=== PATIENT | female | born 1945 | race Caucasian/White ===

== ENCOUNTER 2018-03-31 20:55 | Inpatient (IN) | payer MEDICARE ==
[2018-03-31] MEDS ORDERED: VANCOMYCIN HCL INJ 1000 MG VIAL IV ONE (21:36)
[2018-03-31] MEDS ORDERED: AZITHROMYCIN INJ 500 MG VIAL IV ONE (21:36)
[2018-03-31] MEDS ORDERED: PIPERACILLIN/TAZOBACTAM 4.5 GM VIAL IV ONE (21:37)
[2018-03-31 21:40] LABS: VENOUS BLOOD BASE EXCESS 15.4 mmol/L; VENOUS BLOOD HCO3 46.1 mmol/L (20-32); VENOUS BLOOD PH 7.31 (7.30-7.42)
--- NOTE | 2018-03-31 21:41 | RADIOLOGY REPORT (SQ) ---
Clinical History : SOB , Exam : Portable AP view of the chest 03/31/2018 12:00 AM [employer] Comparisons : CT chest without contrast January 07, 2012 Findings : Moderate emphysematous changes are noted throughout the lungs bilaterally. The lungs are otherwise clear without focal consolidation or pleural effusion. The heart is normal in size. The mediastinal contours are normal in appearance. The thoracic spine is age appropriate. The shoulders are unremarkable. Limited evaluation of the upper abdomen demonstrates no gross abnormalities. Impression: 1. No acute cardiopulmonary disease. 2. Stable moderate emphysema.
[2018-03-31 21:42] LABS: ABSOLUTE BASOPHILS # (AUTO) 0.1 10^3/uL (0.0-0.2); ABSOLUTE EOSINOPHILS # (AUTO) 0.9 10^3/uL (0.0-0.6); ABSOLUTE MONOCYTES (AUTO) 1.5 10^3/uL (0.1-1.4); ABSOLUTE NEUT (AUTO) 8.9 10^3/uL (1.7-8.2); BASOPHILS % (AUTO) 0.6 % (0-2); EOSINOPHILS % (AUTO) 6.1 % (0-6); HEMOGLOBIN 12.3 g/dL (12.0-15.5); LYMPHOCYTES % (AUTO) 20.7 % (13-45); MEAN CORPUSCULAR HEMOGLOBIN 30.9 pg (27.0-33.4); MEAN CORPUSCULAR HGB CONC 33.2 g/dL (32.0-36.0); MEAN CORPUSCULAR VOLUME 93 fl (80-97); MONOCYTES % (AUTO) 10.4 % (3-13); PLATELET COUNT 203 10^3/uL (150-450); RED BLOOD COUNT 3.97 10^6/uL (3.72-5.28); RED CELL DISTRIBUTION WIDTH 14.4 % (11.5-14.0); SEGMENTED NEUTROPHILS % (AUTO) 62.2 % (42-78); TOTAL CELLS COUNTED % (AUTO) 100 %; VENOUS BLOOD PCO2 93.5 mmHg (35-63); WHITE BLOOD COUNT 14.4 10^3/uL (4.0-10.5)
--- NOTE | 2018-03-31 21:47 | ER Document Report ---
ED Respiratory Problem - General Chief Complaint: Breathing Difficulty Stated Complaint: DIFFICULTY BREATHING Time Seen by Provider: 03/31/18 21:02 Notes: Patient is a 72-year-old female presenting to the emergency department with respiratory distress. Patient's daughter is at bedside who states the patient was recently discharged from a [place] [facility] on 03/22. States she was discharged after being treated for "COPD and pneumonia toxicity". Daughter states patient was intubated for a total of 24 hours and then was placed on BiPAP. Mother states patient has been home since 03/22 and has been doing well. Daughter states yesterday she noted that the patient was "foggy headed" but she noted no change in the patient's respiratory status. Daughter stated the patient did have a T-max of 101.2 yesterday treated with Tylenol. The patient had 2 doctors visits today 1 with the primary care provider who the daughter states increased her diabetic medications. Daughter states when they arrived home after the second doctor's appointment they noticed that the patient was having increased respiratory distress. 911 was then alerted. Per EMS pt had received a total of 9ml Duoneb, 125 mg Solumedrol and 2mg Magnesium. PMH: COPD, CHF Meds: Lasix, Glipizide, potassium, sodium, magnesium. Allergies: none TRAVEL OUTSIDE OF THE [place] IN LAST 30 DAYS: No - Related Data Allergies/Adverse Reactions: No Known Allergies Allergy (Verified 11/11/15 10:42) Past Medical History - General Information source: Relative - Social History Smoking Status: Former Smoker Lives with: Family Family History: Reviewed & Not Pertinent - Past Medical History Cardiac Medical History: Denies: Hx Coronary Artery Disease, Hx Heart Attack, Hx Hypertension Pulmonary Medical History: Reports: Hx Asthma, Hx Bronchitis, Hx COPD, Hx Pneumonia Neurological Medical History: Denies: Hx Cerebrovascular Accident, Hx Seizures Renal/ Medical History: Denies: Hx Peritoneal Dialysis Musculoskeletal Medical History: Reports Hx Arthritis Past Surgical History: Reports: Hx Hysterectomy - Immunizations Hx Diphtheria, Pertussis, Tetanus Vaccination: Yes Hx Pneumococcal Vaccination: 02/26/14 Review of Systems - Review of Systems Constitutional: See HPI EENT: No symptoms reported Cardiovascular: See HPI Respiratory: See HPI Gastrointestinal: No symptoms reported Genitourinary: No symptoms reported Female Genitourinary: No symptoms reported Musculoskeletal: No symptoms reported Skin: No symptoms reported Hematologic/Lymphatic: No symptoms reported Neurological/Psychological: See HPI Physical Exam - Vital signs Vitals: Pulse Ox 95 03/31/18 20:59 - Notes Notes: GENERAL: Alert, interacts well, Obvious respiratory distress noted sitting tripod, tachypneic HEAD: Normocephalic, atraumatic. EYES: Pupils equal, round, and reactive to light. Extraocular movements intact. ENT: Oral mucosa moist, tongue midline. NECK: Full range of motion. Supple. Trachea midline. LUNGS: Expiratory wheeze heard bilateral apices, rhonchi and diminished heard bilateral bases. Patient is currently on a DuoNeb treatment. HEART: Tachycardic rate and rhythm. No murmur ABDOMEN: Obese soft, non-tender. Non-distended. Bowel sounds present in all 4 quadrants. EXTREMITIES: Moves all 4 extremities spontaneously. No edema, normal radial and dorsalis pedis pulses bilaterally. No cyanosis. BACK: no cervical, thoracic, lumbar midline tenderness. No saddle anesthesia, normal distal neurovascular exam. NEUROLOGICAL: Alert and oriented x3. Normal speech. cranial nerves II through XII grossly intact. PSYCH: Normal affect, normal mood. SKIN: Warm, dry, normal turgor. No rashes or lesions noted. Course - Re-evaluation Re-evalutation: Patient's oxygen saturation currently 98% on a DuoNeb but due to patient being in immediate respiratory distress BiPAP was ordered and placed by respiratory at bedside. 03/31/18 21:50 Pt. is currently stating that she feels better on Bipap. She is able to talk in longer sentences and stated that she never had CP at any time. She stated that the breathing treatments and also the Bipap is helping her. When coached she is able to take deep breaths bring her TV up to 700. Discussed case with Dr. Hansen who comes in to evaluate the patient himself. Dr. Hansen is in agreement with my current treatment plan, awaiting lab results, and chest x-ray at this time. 03/31/18 22:30 Labs do reveal leukocytosis of 14.4, pH 7.31 and PCO2 of 93.5. Her lactic acid is only 1.1 Repeat ABG is ordered right now, nurse states she just ozzie it. Will compare PCO2 now that patient states she is breathing easier, feels better and has been on BiPAP for an hour. Although chest x-ray reviewed by radiology reveals no pneumonia, x-ray reviewed by myself and Dr. Hansen who suspect atelectasis versus pneumonia. Patient is febrile in the emergency room at 100.5 with Hedrick temperature catheter so we are treating prophylactically for HCAP. Awaiting results of repeat VBG for further management. 03/31/18 23:13 Repeat pCO2 was 83.4 and down trending, pH continues to be stable at 7.35. Reevaluated the patient and she continues to be stable on BiPAP. Respiratory rate has come down to 26 at this time. Patient is currently asking for something to drink. Family states patient is "a lot more awake at this time." Will contact Dr. Johnston for admission. Pts current vitals HR 104, SPO2 94 on Bipap, RR 26, temp 100.4 BP 136/75. Dr. Johnston agrees patient needs to be admitted to IM. Patient reevaluated again while on BiPAP, patient continues to be able to speak in multiple word sentences and states her breathing is "a whole lot better." Patient is admitted to IM at this time. - Vital Signs Vital signs: Temp Pulse Resp BP Pulse Ox 98.1 F 30 H 144/68 H 95 03/31/18 22:17 04/01/18 01:00 04/01/18 00:01 04/01/18 01:00 - Laboratory Result Diagrams: 03/31/18 21:12 03/31/18 21:12 Laboratory results interpreted by me: 03/31/18 03/31/18 03/31/18 21:12 21:12 21:12 WBC 14.4 H RDW 14.4 H Eosinophils % 6.1 H Absolute Neutrophils 8.9 H Absolute Monocytes 1.5 H Absolute Eosinophils 0.9 H VBG pCO2 VBG HCO3 Chloride 91 L Carbon Dioxide 39 H Glucose 216 H Direct Bilirubin 0.5 H Ammonia 41.7 H Creatine Kinase < 20 L Urine Protein Urine Glucose (UA) Urine Blood 03/31/18 03/31/18 03/31/18 21:12 22:11 22:34 WBC RDW Eosinophils % Absolute Neutrophils Absolute Monocytes Absolute Eosinophils VBG pCO2 93.5 H* 83.4 H* VBG HCO3 46.1 H 44.6 H Chloride Carbon Dioxide Glucose Direct Bilirubin Ammonia Creatine Kinase Urine Protein 30 H Urine Glucose (UA) 50 H Urine Blood MODERATE H Critical Care Note - Critical Care Note Total time excluding time spent on procedures (mins): 45 Discharge - Discharge Clinical Impression: Respiratory distress Pneumonia Qualifiers: Pneumonia type: due to unspecified organism Laterality: bilateral Lung location : upper lobe of lung Qualified Code(s): J18.1 - Lobar pneumonia, unspecified organism Condition: Stable Disposition: ADMITTED INPATIENT Admitting Provider: [facility] Unit Admitted: [facility]
[2018-03-31 21:56] LABS: ALANINE AMINOTRANSFERASE 39 U/L (9-52); ALBUMIN 3.6 g/dL (3.5-5.0); ALKALINE PHOSPHATASE 79 U/L (38-126); ASPARTATE AMINO TRANSFERASE 24 U/L (14-36); BILIRUBIN,DIRECT 0.5 mg/dL (0.0-0.4); BILIRUBIN,TOTAL 1.2 mg/dL (0.2-1.3); BLOOD UREA NITROGEN 17 mg/dL (7-20); CALCIUM 9.5 mg/dL (8.4-10.2); CHLORIDE 91 mmol/L (98-107); GLUCOSE 216 mg/dL (75-110); POTASSIUM 4.1 mmol/L (3.6-5.0); SODIUM 140.4 mmol/L (137-145); TOTAL PROTEIN 6.9 g/dL (6.3-8.2)
[2018-03-31 22:03] LABS: ANION GAP 10 (5-19); CARBON DIOXIDE 39 mmol/L (22-30)
[2018-03-31 22:04] LABS: CREATINE KINASE < 20 U/L (30-135)
[2018-03-31 22:07] LABS: CREATINE KINASE MB 0.88 ng/mL (<4.55); TROPONIN I 0.015 ng/mL
[2018-03-31 22:31] LABS: APPEARANCE,URINE SLIGHTLY-CLOUDY; BILIRUBIN,URINE NEGATIVE (NEGATIVE); COLOR,URINE YELLOW; GLUCOSE, URINE 50 mg/dL (NEGATIVE); KETONES,URINE NEGATIVE (NEGATIVE); LEUKOCYTE ESTERASE,URINE NEGATIVE (NEGATIVE); NITRITE,URINE NEGATIVE (NEGATIVE); PROTEIN,URINE 30 mg/dL (NEGATIVE); URINE SPECIFIC GRAVITY 1.015; UROBILINOGEN,URINE NEGATIVE mg/dL (<2.0)
[2018-03-31] MEDS ORDERED: ACETAMINOPHEN 325 MG SUPP.RECT PR ONE (22:39)
--- NOTE | 2018-03-31 22:41 | EKG REPORT ---
SEVERITY:- ABNORMAL ECG - SINUS TACHYCARDIA LEFT ANTERIOR FASCICULAR BLOCK BORDERLINE T ABNORMALITIES, ANT-LAT LEADS : Confirmed by: Yvonne Guidry 31-Mar-2018 22:40:46
[2018-03-31 22:52] LABS: VENOUS BLOOD HCO3 44.6 mmol/L (20-32); VENOUS BLOOD PH 7.35 (7.30-7.42)
[2018-03-31 22:57] LABS: VENOUS BLOOD PCO2 83.4 mmHg (35-63)
[2018-03-31] MEDS ORDERED: HYDRALAZINE HCL INJ/PF 20 MG/1 ML SDV IV PRN (23:20)
[2018-03-31] MEDS ORDERED: IPRATROPIUM/ALBUTEROL 0.5-2.5 MG/3 ML AMPUL NEB PRN (23:20)
[2018-03-31] MEDS ORDERED: GUAIFENESIN SYRP 200 MG/10 ML UDC PO PRN (23:20)
[2018-03-31] MEDS ORDERED: ACETAMINOPHEN 325 MG TABLET PO PRN (23:20)
[2018-03-31] MEDS ORDERED: VANCOMYCIN HCL 0 MG in DEXTROSE 5%-WATER 250 ML IV NR (23:30)
[2018-03-31] MEDS ORDERED: CHLORPHENIRAMINE MALEATE 4 MG TABLET PO ONE (23:45)
[2018-03-31] MEDS ORDERED: CEFEPIME 2 GM/D5W RTU 2 GM/50 ML RTUPB IV ONE (23:45)
[2018-04-01] MEDS: IPRATROPIUM/ALBUTEROL 0.5-2.5 MG/3 ML AMPUL NEB SCH ×7 (01:43→22:48)
[2018-04-01 03:51] LABS: ARTERIAL BLOOD BASE EXCESS 13.9 mmol/L; ARTERIAL BLOOD H2CO3 2.78 mmol/L (1.05-1.35); ARTERIAL BLOOD HCO3 44.3 mmol/L (20-24); ARTERIAL BLOOD O2 SATURATION 95.6 % (94-98); ARTERIAL BLOOD TOTAL CO2 47.1 mmol/L (21-25)
[2018-04-01 03:56] LABS: ARTERIAL BLOOD FIO2 50%
[2018-04-01 03:57] LABS: ARTERIAL BLOOD PCO2 92.5 mmHg (35-45)
[2018-04-01 05:17] LABS: ARTERIAL BLOOD BASE EXCESS 13.5 mmol/L; ARTERIAL BLOOD H2CO3 2.62 mmol/L (1.05-1.35); ARTERIAL BLOOD HCO3 43.4 mmol/L (20-24); ARTERIAL BLOOD O2 SATURATION 97.2 % (94-98); ARTERIAL BLOOD PH 7.32 (7.35-7.45); ARTERIAL BLOOD PO2 107.6 mmHg (80-100)
[2018-04-01 05:27] LABS: ARTERIAL BLOOD FIO2 50%
--- NOTE | 2018-04-01 05:42 | PDOC H&P ---
History of Present Illness Admission Date/PCP: 03/31/18 23:25 JAZZMINE VINCENT MD Patient complains of: Shortness of breath History of Present Illness: DAMIAN LOWRY is a 72 year old female with a past medical history of COPD, anxiety, obesity and deconditioning. History is obtained by the record and ER provider. [facility] following pneumonia and COPD exacerbation. She was intubated for 24 hours followed by BiPAP, daughter provides history stating she has had a fever over the last 24 hours and confusion. In the emergency room she receives supplemental oxygen, empiric antibiotics, Solu-Medrol, albuterol and Atrovent, then referred to the hospitalist for admission. Patient is now obtunded rousing only momentarily to noxious stimuli and unable to provide any history. She is found to have acute on chronic respiratory failure with hypercapnia with a PCO2 of 92 she is placed on BiPAP for a trial. Past Medical History Cardiac Medical History: Denies: Coronary Artery Disease, Myocardial Infarction, Hypertension Pulmonary Medical History: Reports: Asthma, Bronchitis, Chronic Obstructive Pulmonary Disease (COPD), Pneumonia Neurological Medical History: Denies: Seizures Musculoskeltal Medical History: Reports: Arthritis Hematology: Denies: Anemia Past Surgical History Past Surgical History: Reports: Hysterectomy Social History Information Source: Relative, Emergency Med Personnel, [facility] Records Lives with: Family Smoking Status: Former Smoker Frequency of Alcohol Use: None Drugs: None - Advance Directive Resuscitation Status: Full Code Family History Family History: Other - Unobtainable Parental Family History Reviewed: No - Unobtainable Children Family History Reviewed: No Sibling(s) Family History Reviewed.: No Medication/Allergy Home Medications: Hydrocodone Bit/Acetaminophen [Vicodin 5-500 mg Tablet] 1 - 2 tab PO ASDIR PRN # 20 tablet 01/08/12 Ibuprofen [Motrin 600 mg Tablet] 600 mg PO Q6 PRN #30 tablet 01/08/12 Albuterol Sulfate [Proair HFA] 1 - 2 puff IH Q4 PRN 11/11/15 Albuterol Sulfate [Ventolin 0.042% Neb 1.25 mg/3 ml Ampul] 1 vial NEB Q4 PRN Budesonide/Formoterol Fumarate [Symbicort Hfa 160-4.5 Mcg Inhaler 6 gm] 2 puff IH Q12 11/11/15 Cholecalciferol (Vitamin D3) [Vitamin D3] 2,000 unit PO DAILY 11/11/15 Diazepam [Valium 5 mg Tablet] 5 mg PO TID PRN 11/11/15 Ipratropium/Albuterol Sulfate [Combivent Respimat 4 gm Mdi] 1 puff IH Q4 Magnesium Oxide [Magox] 400 mg PO BID 11/11/15 Potassium Chloride [Klor-Con M10] 10 meq PO BID 11/11/15 Allergies/Adverse Reactions: No Known Allergies Allergy (Verified 11/11/15 10:42) Review of Systems ROS unobtainable: Due to mental status Physical Exam Vital Signs: Temp Pulse Resp BP Pulse Ox 97.5 F 83 23 H 107/53 L 95 04/01/18 03:28 04/01/18 03:28 04/01/18 03:51 04/01/18 03:28 04/01/18 03:51 Intake & Output 03/30/18 03/31/18 04/01/18 11:59 11:59 11:59 Weight 86.5 kg General appearance: PRESENT: obese, severe distress. ABSENT: no acute distress , cooperative, disheveled Head exam: PRESENT: atraumatic, normocephalic Eye exam: PRESENT: conjunctiva pink, EOMI, PERRLA. ABSENT: scleral icterus Ear exam: PRESENT: normal external ear exam Mouth exam: PRESENT: moist, tongue midline Neck exam: ABSENT: carotid bruit, JVD, lymphadenopathy, thyromegaly Respiratory exam: PRESENT: crackles, decreased breath sounds, prolonged expiratory phas, symmetrical, unlabored Cardiovascular exam: PRESENT: RRR, tachycardia. ABSENT: diastolic murmur, rubs , systolic murmur Pulses: PRESENT: normal dorsalis pedis pul Vascular exam: PRESENT: normal capillary refill GI/Abdominal exam: PRESENT: normal bowel sounds, soft. ABSENT: distended, guarding, mass, organolmegaly, rebound, tenderness Rectal exam: PRESENT: deferred Extremities exam: PRESENT: full ROM. ABSENT: calf tenderness, clubbing, pedal edema Neurological exam: PRESENT: altered, oriented to person, CN II-XII grossly intact Psychiatric exam: PRESENT: unusual affect Skin exam: PRESENT: dry, intact, warm. ABSENT: cyanosis, rash Results Laboratory Results: 04/01/18 04/01/18 03:40 05:08 Carbonic Acid 2.78 H 2.62 H HCO3/H2CO3 Ratio 15:1 16:1 ABG pH 7.30 L 7.32 L ABG pCO2 92.5 H* 87.1 H* ABG pO2 91.0 107.6 H ABG HCO3 44.3 H 43.4 H ABG O2 Saturation 95.6 97.2 ABG Base Excess 13.9 13.5 FiO2 50% 50% Assessment & Plan - Diagnosis (1) Pneumonia Qualifiers: Pneumonia type: due to unspecified organism Laterality: bilateral Lung location: upper lobe of lung Qualified Code(s): J18.1 - Lobar pneumonia, unspecified organism Is this a current diagnosis for this admission?: Yes Plan: Healthcare associated pneumonia. Vancomycin and cefepime initiated. Follow-up CBC and blood culture (2) Acute respiratory failure with hypoxia and hypercapnia Is this a current diagnosis for this admission?: Yes Plan: Secondary to severe emphysema, acute on chronic bronchitis likely healthcare associated pneumonia. BiPAP trial initiated, follow-up ABG (3) Tachycardia Is this a current diagnosis for this admission?: Yes Plan: High risk for development of A. fib, Cardizem initiated empirically. (4) Diabetes Is this a current diagnosis for this admission?: Yes Plan: Outpatient regiment with Humalog sliding scale
[2018-04-01] MEDS: HEPARIN SOD (PORCINE) 5,000 UNIT/ML 1 ML SYRINGE SUBCUT SCH ×3 (05:58→21:38)
[2018-04-01] MEDS ORDERED: HEPARIN SOD (PORCINE) 5,000 UNIT/ML 1 ML SYRINGE SUBCUT SCH (06:00)
[2018-04-01] MEDS ORDERED: DILTIAZEM HCL 60 MG TABLET PO SCH (06:00)
[2018-04-01 06:19] LABS: ABSOLUTE LYMPHOCYTES (AUTO) 0.5 10^3/uL (0.5-4.7); ABSOLUTE MONOCYTES (AUTO) 0.1 10^3/uL (0.1-1.4); ABSOLUTE NEUT (AUTO) 8.2 10^3/uL (1.7-8.2); BASOPHILS % (AUTO) 0.3 % (0-2); EOSINOPHILS % (AUTO) 0.1 % (0-6); HEMATOCRIT 34.7 % (36.0-47.0); HEMOGLOBIN 11.6 g/dL (12.0-15.5); LYMPHOCYTES % (AUTO) 6.1 % (13-45); MEAN CORPUSCULAR HGB CONC 33.5 g/dL (32.0-36.0); MEAN CORPUSCULAR VOLUME 92 fl (80-97); MONOCYTES % (AUTO) 1.4 % (3-13); PLATELET COUNT 165 10^3/uL (150-450); RED BLOOD COUNT 3.76 10^6/uL (3.72-5.28); RED CELL DISTRIBUTION WIDTH 14.3 % (11.5-14.0); SEGMENTED NEUTROPHILS % (AUTO) 92.1 % (42-78); TOTAL CELLS COUNTED % (AUTO) 100 %; WHITE BLOOD COUNT 8.9 10^3/uL (4.0-10.5)
[2018-04-01 06:36] LABS: BLOOD UREA NITROGEN 20 mg/dL (7-20); CALCIUM 9.4 mg/dL (8.4-10.2); CHLORIDE 90 mmol/L (98-107); GLUCOSE 321 mg/dL (75-110); SODIUM 139.7 mmol/L (137-145)
[2018-04-01 06:44] LABS: ANION GAP 11 (5-19)
[2018-04-01 06:45] LABS: CARBON DIOXIDE 39 mmol/L (22-30); POTASSIUM 5.2 mmol/L (3.6-5.0)
[2018-04-01 07:13] LABS: ARTERIAL BLOOD PCO2 87.1 mmHg (35-45)
[2018-04-01] MEDS ORDERED: (PENDING PHARMACY ID) (Potassium Chloride [Klor-Con M10] 10 MEQ) PO SCH (10:00)
[2018-04-01] MEDS: POTASSIUM CHLORIDE 10 MEQ CAPSULE.ER PO SCH ×2 (10:15→17:32)
[2018-04-01] MEDS: GLIPIZIDE 5 MG TABLET PO SCH (10:15)
[2018-04-01] MEDS: FAMOTIDINE 20 MG TABLET PO SCH ×2 (10:15→21:45)
[2018-04-01] MEDS ORDERED: ALBUTEROL SULFATE 0.042% NEB (1.25 MG/3 ML) AMPUL NEB PRN (10:15)
[2018-04-01] MEDS: HYDROCODONE/ACETAMINOPHEN 7.5-325 MG TABLET PO PRN ×3 (10:16→21:39)
[2018-04-01] MEDS ORDERED: DEXTROSE 50%-WATER 25 GM/50 ML DISP.SYRIN IV PRN ×2 (10:17)
[2018-04-01] MEDS ORDERED: GLUCAGON,HUMAN RECOMB 1 MG INJ IM PRN (10:17)
[2018-04-01] MEDS ORDERED: DEXTROSE 40% GEL 15 GM TUBE PO PRN ×2 (10:17)
[2018-04-01] MEDS: FLUTICASONE NASAL SPRAY 50 MCG/SPRY 120 SPRAY/16 GM NASL SCH ×2 (10:20→21:37)
[2018-04-01] MEDS: CEFEPIME 2 GM/D5W RTU 2 GM/50 ML RTUPB IV SCH ×2 (10:24→21:45)
[2018-04-01] MEDS ORDERED: IPRATROPIUM/ALBUTEROL 0.5-2.5 MG/3 ML AMPUL NEB PRN (10:37)
[2018-04-01] MEDS ORDERED: HYDROCODONE/ACETAMINOPHEN 7.5-325 MG TABLET PO PRN (10:37)
[2018-04-01] MEDS ORDERED: IPRATROPIUM/ALBUTEROL 120 PUFF/4 GM MDI IH PRN (10:37)
[2018-04-01] MEDS: DILTIAZEM HCL 60 MG TABLET PO SCH ×2 (10:38→21:36)
--- NOTE | 2018-04-01 11:04 | PDOC PROGRESS REPORT ---
Subjective Progress Note for:: 04/01/18 Subjective:: [birth year]/01/20187010-20-nbyo-old female with history of COPD anxiety disorder admitted for respiratory distress. She was placed on the BiPAP in the emergency room. And the continue the BiPAP during the hospital stay. Patient was obtunded when she came to the ER. This morning patient is alert and awake communicating well without any problems. Patient was still on BiPAP. Acute events since the admission. She is afebrile. Reason For Visit: COPD EXACERBATION ACUTE RESPIRATORY FAILURE Physical Exam Vital Signs: Temp Pulse Resp BP Pulse Ox 97.5 F 71 27 H 95/58 L 97 04/01/18 07:37 04/01/18 08:29 04/01/18 08:29 04/01/18 07:37 04/01/18 08:29 Intake & Output 03/31/18 04/01/18 04/02/18 06:59 06:59 06:59 Intake Total 0 Output Total 330 Balance -330 Weight 88.5 kg General appearance: PRESENT: mild distress Head exam: PRESENT: atraumatic Eye exam: PRESENT: PERRLA Mouth exam: PRESENT: dry mucosa Neck exam: ABSENT: carotid bruit, JVD, lymphadenopathy, thyromegaly Respiratory exam: PRESENT: decreased breath sounds, prolonged expiratory phas Cardiovascular exam: PRESENT: tachycardia GI/Abdominal exam: PRESENT: normal bowel sounds, soft. ABSENT: distended, guarding, mass, organolmegaly, rebound, tenderness Neurological exam: PRESENT: alert, awake, oriented to person, oriented to place , oriented to time, oriented to situation, CN II-XII grossly intact. ABSENT: motor sensory deficit Psychiatric exam: PRESENT: appropriate affect, normal mood. ABSENT: homicidal ideation, suicidal ideation Results Laboratory Results: 04/01/18 05:30 04/01/18 05:30 04/01/18 04/01/18 04/01/18 03:40 05:08 05:30 WBC 8.9 RBC 3.76 Hgb 11.6 L Hct 34.7 L MCV 92 MCH 31.0 MCHC 33.5 RDW 14.3 H Plt Count 165 Seg Neutrophils % 92.1 H Lymphocytes % 6.1 L Monocytes % 1.4 L Eosinophils % 0.1 Basophils % 0.3 Absolute Neutrophils 8.2 Absolute Lymphocytes 0.5 Absolute Monocytes 0.1 Absolute Eosinophils 0.0 Absolute Basophils 0.0 Carbonic Acid 2.78 H 2.62 H HCO3/H2CO3 Ratio 15:1 16:1 ABG pH 7.30 L 7.32 L ABG pCO2 92.5 H* 87.1 H* ABG pO2 91.0 107.6 H ABG HCO3 44.3 H 43.4 H ABG O2 Saturation 95.6 97.2 ABG Base Excess 13.9 13.5 FiO2 50% 50% Sodium Potassium Chloride Carbon Dioxide Anion Gap BUN Creatinine Est GFR ( Amer) Est GFR (Non-Af Amer) Glucose Calcium 04/01/18 05:30 WBC RBC Hgb Hct MCV MCH MCHC RDW Plt Count Seg Neutrophils % Lymphocytes % Monocytes % Eosinophils % Basophils % Absolute Neutrophils Absolute Lymphocytes Absolute Monocytes Absolute Eosinophils Absolute Basophils Carbonic Acid HCO3/H2CO3 Ratio ABG pH ABG pCO2 ABG pO2 ABG HCO3 ABG O2 Saturation ABG Base Excess FiO2 Sodium 139.7 Potassium 5.2 H D Chloride 90 L Carbon Dioxide 39 H Anion Gap 11 BUN 20 Creatinine 0.52 Est GFR ( Amer) > 60 Est GFR (Non-Af Amer) > 60 Glucose 321 H Calcium 9.4 Assessment & Plan - Diagnosis (1) Acute respiratory failure with hypoxia and hypercapnia Is this a current diagnosis for this admission?: Yes Plan: 04/01/2018-acute on chronic respiratory failure with hypoxia and hypercapnia may be secondary to severe emphysema, possible underlying pneumonia. Pneumonia probably healthcare related or associated. Patient was in the hospital in [place] and was discharged on 03/22/2018. Patient is still on BiPAP. She is getting ipratropium nebulizations. We are going to follow up the ABG. ABG a half from 5 AM pH 7.32/PCO2 87/PO2 107 bicarb is 43. There is a slight decrease in PCO2 levels. (2) Pneumonia Qualifiers: Pneumonia type: due to unspecified organism Laterality: bilateral Lung location: upper lobe of lung Qualified Code(s): J18.1 - Lobar pneumonia, unspecified organism Is this a current diagnosis for this admission?: Yes Plan: 04/01/2018-patient may have a health care associated pneumonia. Was started on vancomycin and cefepime. Chest x-ray is inconclusive, requested for CT chest without contrast. Sputum cultures and blood cultures are pending. Patient's came in with initial WBC of 14,000, no CBC is 8.9. (3) Tachycardia Is this a current diagnosis for this admission?: Yes Plan: 04/01/2018 patient came in with tachycardia heart rate of more than 100, she was started on Cardizem 60 mg p.o. every 6 hours. The heart rate now in the 70s. Going to decrease the Cardizem to 60 twice a day. (4) Diabetes Is this a current diagnosis for this admission?: Yes Plan: 04/01/2018-patient was recently diagnosed with diabetes. Probably secondary to chronic steroid use. She was started by the PCP on a glipizide but the patient did not start the medication yet. We are going to put her on a insulin sliding scale. I am going to request for hemoglobin A1c. - Time Time Spent with patient: 15-24 minutes Medications reviewed and adjusted accordingly: Yes Anticipated discharge: Home
[2018-04-01 11:12] LABS: ARTERIAL BLOOD BASE EXCESS 16.9 mmol/L; ARTERIAL BLOOD HCO3 46.1 mmol/L (20-24); ARTERIAL BLOOD O2 SATURATION 97.9 % (94-98); ARTERIAL BLOOD PH 7.38 (7.35-7.45); ARTERIAL BLOOD PO2 116.3 mmHg (80-100); ARTERIAL BLOOD TOTAL CO2 48.6 mmol/L (21-25)
[2018-04-01 11:13] LABS: ARTERIAL BLOOD FIO2 50%
[2018-04-01 11:14] LABS: ARTERIAL BLOOD PCO2 79.8 mmHg (35-45)
[2018-04-01 11:24] LABS: ABSOLUTE LYMPHOCYTES (AUTO) 0.7 10^3/uL (0.5-4.7); ABSOLUTE MONOCYTES (AUTO) 0.2 10^3/uL (0.1-1.4); ABSOLUTE NEUT (AUTO) 8.9 10^3/uL (1.7-8.2); BASOPHILS % (AUTO) 0.3 % (0-2); HEMATOCRIT 35.8 % (36.0-47.0); HEMOGLOBIN 11.9 g/dL (12.0-15.5); LYMPHOCYTES % (AUTO) 6.8 % (13-45); MEAN CORPUSCULAR HEMOGLOBIN 30.5 pg (27.0-33.4); MEAN CORPUSCULAR HGB CONC 33.1 g/dL (32.0-36.0); MEAN CORPUSCULAR VOLUME 92 fl (80-97); MONOCYTES % (AUTO) 1.8 % (3-13); PLATELET COUNT 182 10^3/uL (150-450); RED BLOOD COUNT 3.89 10^6/uL (3.72-5.28); RED CELL DISTRIBUTION WIDTH 14.4 % (11.5-14.0); SEGMENTED NEUTROPHILS % (AUTO) 91.1 % (42-78); TOTAL CELLS COUNTED % (AUTO) 100 %; WHITE BLOOD COUNT 9.7 10^3/uL (4.0-10.5)
[2018-04-01 11:42] LABS: ALANINE AMINOTRANSFERASE 32 U/L (9-52); ALBUMIN 3.4 g/dL (3.5-5.0); ALKALINE PHOSPHATASE 70 U/L (38-126); ASPARTATE AMINO TRANSFERASE 20 U/L (14-36); BILIRUBIN,DIRECT 0.3 mg/dL (0.0-0.4); BILIRUBIN,TOTAL 0.6 mg/dL (0.2-1.3); BLOOD UREA NITROGEN 22 mg/dL (7-20); CALCIUM 9.6 mg/dL (8.4-10.2); CHLORIDE 90 mmol/L (98-107); GLUCOSE 264 mg/dL (75-110); POTASSIUM 5.2 mmol/L (3.6-5.0); TOTAL PROTEIN 6.4 g/dL (6.3-8.2)
[2018-04-01 11:48] LABS: ANION GAP 11 (5-19); CARBON DIOXIDE 39 mmol/L (22-30)
--- NOTE | 2018-04-01 13:05 | RADIOLOGY REPORT (SQ) ---
EXAM DESCRIPTION: CT CHEST WITHOUT COMPLETED DATE/TIME: 04/01/2018 12:44 pm REASON FOR STUDY: shortness of breath COMPARISON: CT chest 01/07/2012 Chest films 03/31/2018, 06/29/2008 TECHNIQUE: CT scan performed of the chest without intravenous contrast. Images reviewed with lung, soft tissue and bone windows. Reconstructed coronal and sagittal MPR images reviewed. All images st ored on PACS. All CT scanners at this facility use dose modulation, iterative reconstruction, and/or weight based d osing when appropriate to reduce radiation dose to as low as reasonably achievable (ALARA). [facility]: Dose Right [facility]: CareDose [facility]: Dose Right [facility]: Teradose 4D [facility]: MobileReactor RADIATION DOSE: CT Rad equipment meets quality standard of care and radiation dose reduction techniq ues were employed. CTDIvol: 15.7 mGy. DLP: 620 mGy-cm. mGy. LIMITATIONS: No technical limitations. FINDINGS: LUNGS AND PLEURA: Pronounced obstructive lung disease throughout the lung parenchyma with hyperinflation and centrilobular hyperlucency. Bandlike scarring or atelectasis at both bases. No pleural effusion. No pneumothorax. No worrisome pulmonary nodules. HILAR AND MEDIASTINAL STRUCTURES: Stable 3 x 1.2 cm precarinal lymph node unchanged from 01/07/2012. HEART AND VASCULAR STRUCTURES: Calcified aortic valve and moderate coronary artery calcifications. N o cardiomegaly or pericardial effusion UPPER ABDOMEN: Clips post cholecystectomy THYROID AND OTHER SOFT TISSUES: No masses. No adenopathy. BONES: No significant finding. HARDWARE: None in the chest. OTHER: No other significant findings. IMPRESSION: Obstructive lung disease, similar compared to CT exam from 12/28/2011 TECHNICAL DOCUMENTATION: JOB ID: [id number] Quality ID # [id number]: Final reports with documentation of one or more dose reduction techniques (e.g., Au tomated exposure control, adjustment of the mA and/or kV according to patient size, use of iterative reconstruction technique) 2010 [employer]- All Rights Reserved Reading location - IP/workstation name: [email or web address]
[2018-04-01] MEDS: CHOLECALCIFEROL (D3) 1,000 UNIT TABLET PO SCH (14:44)
[2018-04-01] MEDS: METHYLPREDNISOLONE INJ 125 MG/2 ML SDV IV SCH ×2 (14:44→21:42)
[2018-04-01] MEDS: VANCOMYCIN HCL 1,500 MG in DEXTROSE 5%-WATER 250 ML IV SCH (14:45)
[2018-04-01] MEDS: MAGNESIUM OXIDE 400 MG TABLET PO SCH (17:33)
[2018-04-01] MEDS: BUDESONIDE/FORMOTEROL 160-4.5 MCG 60 PUFF/6 GM MDI IH SCH (21:41)
[2018-04-01] MEDS: DIAZEPAM 5 MG TABLET PO PRN (21:54)
[2018-04-01] MEDS: INSULIN LISPRO 100 UNIT/ML 3 ML VIAL SUBCUT PRN (22:25)
[2018-04-02] MEDS: IPRATROPIUM/ALBUTEROL 0.5-2.5 MG/3 ML AMPUL NEB SCH ×7 (00:39→19:28)
[2018-04-02] MEDS: VANCOMYCIN HCL 1,500 MG in DEXTROSE 5%-WATER 250 ML IV SCH ×2 (01:07→14:39)
[2018-04-02] MEDS: HYDROCODONE/ACETAMINOPHEN 7.5-325 MG TABLET PO PRN ×3 (05:18→22:07)
[2018-04-02] MEDS: METHYLPREDNISOLONE INJ 125 MG/2 ML SDV IV SCH ×3 (05:19→21:59)
[2018-04-02] MEDS: HEPARIN SOD (PORCINE) 5,000 UNIT/ML 1 ML SYRINGE SUBCUT SCH ×3 (05:19→22:02)
[2018-04-02] MEDS: FLUTICASONE NASAL SPRAY 50 MCG/SPRY 120 SPRAY/16 GM NASL SCH ×2 (09:12→21:59)
[2018-04-02] MEDS: BUDESONIDE/FORMOTEROL 160-4.5 MCG 60 PUFF/6 GM MDI IH SCH ×2 (09:12→22:01)
[2018-04-02] MEDS: MAGNESIUM OXIDE 400 MG TABLET PO SCH ×2 (09:13→17:41)
[2018-04-02] MEDS: GLIPIZIDE 5 MG TABLET PO SCH (09:13)
[2018-04-02] MEDS: DILTIAZEM HCL 60 MG TABLET PO SCH ×2 (09:13→21:58)
[2018-04-02] MEDS: POTASSIUM CHLORIDE 10 MEQ CAPSULE.ER PO SCH ×2 (09:13→17:42)
[2018-04-02] MEDS: FUROSEMIDE 40 MG TABLET PO SCH (09:13)
[2018-04-02] MEDS: CHOLECALCIFEROL (D3) 1,000 UNIT TABLET PO SCH (09:13)
[2018-04-02] MEDS: INSULIN LISPRO 100 UNIT/ML 3 ML VIAL SUBCUT PRN ×4 (09:14→22:16)
[2018-04-02] MEDS: FAMOTIDINE 20 MG TABLET PO SCH ×2 (09:14→22:07)
[2018-04-02] MEDS: CEFEPIME 2 GM/D5W RTU 2 GM/50 ML RTUPB IV SCH ×2 (09:32→22:04)
[2018-04-02] MEDS ORDERED: (PENDING PHARMACY ID) (Cholecalciferol (Vitamin D3) [Vitamin D3] 2,000 UNIT) PO SCH (10:00)
[2018-04-02 12:25] LABS: ARTERIAL BLOOD BASE EXCESS 14.1 mmol/L; ARTERIAL BLOOD H2CO3 1.74 mmol/L (1.05-1.35); ARTERIAL BLOOD O2 SATURATION 97.9 % (94-98); ARTERIAL BLOOD PCO2 57.9 mmHg (35-45); ARTERIAL BLOOD PH 7.46 (7.35-7.45); ARTERIAL BLOOD TOTAL CO2 41.8 mmol/L (21-25)
[2018-04-02 12:28] LABS: ARTERIAL BLOOD FIO2 45%
[2018-04-02 14:00] LABS: VANCOMYCIN,TROUGH 16.7 ug/mL (5.0-20.0)
[2018-04-02] MEDS: NYSTATIN TOPICAL POWDER 15 GM TP SCH (17:41)
[2018-04-02] MEDS: DIAZEPAM 5 MG TABLET PO PRN (18:35)
--- NOTE | 2018-04-02 22:22 | PROGRESS NOTE E ---
Progress Note NAME: DAMIAN LOWRY : 1945 AGE: 72Y DATE: 04/02/2018 ROOM: 327 SUBJECTIVE: The patient is a pleasant 72-year-old female who has a history of COPD, admitted with acute hypoxic respiratory failure secondary to COPD exacerbation, possibly pneumonia. She is still on BiPAP. OBJECTIVE: GENERAL: The patient is lying in bed, comfortable, not in distress. VITAL SIGNS: Temperature 98.2, heart rate 75, blood pressure 107/42, respiratory rate 21, saturation 100% on BiPAP. HEENT: Head normocephalic, atraumatic. Pupils round, reactive to light and accommodation bilaterally. Extraocular movements intact. Ears: Tympanic membranes intact bilaterally. No discharge from the ear. No discharge from the nose. NECK: Supple, no increased JVD, no thyromegaly, no lymphadenopathy. CARDIOVASCULAR: Normal S1, S2. Regular rate and rhythm. No murmur, no gallop. RESPIRATORY: Decreased air entry bilaterally. ABDOMEN: Soft, nontender. MUSCULOSKELETAL: No edema. NEUROLOGIC: Awake, alert. SKIN: No rash. LABORATORY DATA: Sodium 140, potassium 5.2, carbon dioxide 39, creatinine 0.5. White blood count 9.7, hemoglobin is 11.9, hematocrit is 35. ABG; pH 7.3. ASSESSMENT AND PLAN: 1. ACUTE HYPOXIC RESPIRATORY FAILURE SECONDARY TO COPD, POSSIBLE PNEUMONIA ON BiPAP. Continue BiPAP. Titrate oxygen and antibiotics. 2. POSSIBLE PNEUMONIA. Continue antibiotics. 3. TACHYCARDIA, IMPROVED SECONDARY TO HYPOXIA. 4. DIABETES TYPE 2, CONTROLLED. TIME SPENT: Twenty minutes. MEDICAL NECESSITY: The patient needs to stay for treatment of COPD exacerbation and acute hypoxic respiratory failure, as well as a pneumonia. She is also on IV antibiotics, as well as IV methylprednisolone. DICTATING PHYSICIAN: NAZIA DAUGHERTY M.D. [id number] PHY#: [id number] ID: [id number] JOB#: [id number] ACCT: [id number] cc: >
[2018-04-03] MEDS: IPRATROPIUM/ALBUTEROL 0.5-2.5 MG/3 ML AMPUL NEB SCH ×4 (02:55→20:19)
[2018-04-03] MEDS: VANCOMYCIN HCL 1,500 MG in DEXTROSE 5%-WATER 250 ML IV SCH ×2 (03:55→15:04)
[2018-04-03] MEDS: HYDROCODONE/ACETAMINOPHEN 7.5-325 MG TABLET PO PRN ×2 (04:00→20:06)
[2018-04-03] MEDS: HEPARIN SOD (PORCINE) 5,000 UNIT/ML 1 ML SYRINGE SUBCUT SCH ×3 (06:05→21:46)
[2018-04-03] MEDS: METHYLPREDNISOLONE INJ 125 MG/2 ML SDV IV SCH ×3 (06:08→21:47)
[2018-04-03 07:03] LABS: HEMATOCRIT 30.9 % (36.0-47.0); HEMOGLOBIN 10.5 g/dL (12.0-15.5); MEAN CORPUSCULAR HEMOGLOBIN 30.7 pg (27.0-33.4); MEAN CORPUSCULAR HGB CONC 33.8 g/dL (32.0-36.0); MEAN CORPUSCULAR VOLUME 91 fl (80-97); PLATELET COUNT 190 10^3/uL (150-450); RED BLOOD COUNT 3.41 10^6/uL (3.72-5.28); RED CELL DISTRIBUTION WIDTH 14.1 % (11.5-14.0); WHITE BLOOD COUNT 17.1 10^3/uL (4.0-10.5)
[2018-04-03 07:24] LABS: ANION GAP 9 (5-19); BLOOD UREA NITROGEN 34 mg/dL (7-20); CALCIUM 9.7 mg/dL (8.4-10.2); CARBON DIOXIDE 36 mmol/L (22-30); CHLORIDE 89 mmol/L (98-107); GLUCOSE 322 mg/dL (75-110); PHOSPHORUS 3.2 mg/dL (2.5-4.5); POTASSIUM 5.4 mmol/L (3.6-5.0); SODIUM 134.2 mmol/L (137-145)
[2018-04-03 07:36] LABS: ABSOLUTE LYMPHOCYTES# (MANUAL) 0.7 10^3/uL (0.5-4.7); ABSOLUTE MONOCYTES # (MANUAL) 0.7 10^3/uL (0.1-1.4); ABSOLUTE NEUTROPHILS# (MANUAL) 15.7 10^3/uL (1.7-8.2); BASOPHILS % (MANUAL) 0 % (0-2); EOSINOPHILS % (MANUAL) 0 % (0-6); LYMPHOCYTES % (MANUAL) 4 % (13-45); MONOCYTES % (MANUAL) 4 % (3-13); SEGMENTED NEUTROPHILS % (MAN) 92 % (42-78); TOTAL CELLS COUNTED 100
[2018-04-03 07:37] LABS: PLATELET CLUMPS PRESENT; PLATELET COMMENT ADEQUATE
[2018-04-03] MEDS: POTASSIUM CHLORIDE 10 MEQ CAPSULE.ER PO SCH ×2 (10:05→18:06)
[2018-04-03] MEDS: CHOLECALCIFEROL (D3) 1,000 UNIT TABLET PO SCH (10:05)
[2018-04-03] MEDS: MAGNESIUM OXIDE 400 MG TABLET PO SCH ×2 (10:05→18:07)
[2018-04-03] MEDS: GLIPIZIDE 5 MG TABLET PO SCH (10:05)
[2018-04-03] MEDS: INSULIN LISPRO 100 UNIT/ML 3 ML VIAL SUBCUT PRN ×4 (10:06→21:54)
[2018-04-03] MEDS: FUROSEMIDE 40 MG TABLET PO SCH (10:06)
[2018-04-03] MEDS: FAMOTIDINE 20 MG TABLET PO SCH ×2 (10:06→21:45)
[2018-04-03] MEDS: FLUTICASONE NASAL SPRAY 50 MCG/SPRY 120 SPRAY/16 GM NASL SCH ×2 (10:07→21:49)
[2018-04-03] MEDS: BUDESONIDE/FORMOTEROL 160-4.5 MCG 60 PUFF/6 GM MDI IH SCH ×2 (10:07→22:34)
[2018-04-03] MEDS: DILTIAZEM HCL 60 MG TABLET PO SCH ×2 (10:07→21:45)
--- NOTE | 2018-04-03 10:16 | Progress Note ---
Provider Note Provider Note: Subjective: Patient is a 72-year-old female, Hx of COPD. Admitted with hypercapnic hypoxic hypercapnic respiratory failure Was on BiPAP yesterday, now with nasal cannula 6 L saturating in mid 90s Physical examination: General: Patient looks well not in distress Vital signs: Blood pressure is 116/69, rate 70, CVS : Regular rate and rhythm. No murmur CHest : There is air entry bilaterally, wheezing Abdomen : Nontender, soft LL : No edema EDUCATIONAL AIDE : AxO3 Lab : Reviewed ASSESMEMT : 1. Acute hypoxic hypercapnic rotatory failure 2. COPD exacerbation 3. HTN PLAN : -Continue oxygen -Continue nebulizer -Titrate off BiPAP -Disposition : Home in 1-2 days
[2018-04-03] MEDS: NYSTATIN TOPICAL POWDER 15 GM TP SCH ×2 (11:38→18:08)
[2018-04-03] MEDS: CEFEPIME 2 GM/D5W RTU 2 GM/50 ML RTUPB IV SCH ×2 (11:50→21:53)
[2018-04-03] MEDS: DIAZEPAM 5 MG TABLET PO PRN (18:13)
[2018-04-04] MEDS: HYDROCODONE/ACETAMINOPHEN 7.5-325 MG TABLET PO PRN ×3 (00:32→11:51)
[2018-04-04] MEDS: VANCOMYCIN HCL 1,500 MG in DEXTROSE 5%-WATER 250 ML IV SCH (01:47)
[2018-04-04] MEDS: IPRATROPIUM/ALBUTEROL 0.5-2.5 MG/3 ML AMPUL NEB SCH ×4 (02:43→20:05)
[2018-04-04] MEDS: DIAZEPAM 5 MG TABLET PO PRN ×2 (03:38→16:04)
[2018-04-04] MEDS: HEPARIN SOD (PORCINE) 5,000 UNIT/ML 1 ML SYRINGE SUBCUT SCH ×3 (06:40→21:16)
[2018-04-04] MEDS: METHYLPREDNISOLONE INJ 125 MG/2 ML SDV IV SCH (06:42)
[2018-04-04] MEDS: INSULIN LISPRO 100 UNIT/ML 3 ML VIAL SUBCUT PRN ×3 (09:24→21:26)
[2018-04-04] MEDS: DILTIAZEM HCL 60 MG TABLET PO SCH (09:25)
[2018-04-04] MEDS: MAGNESIUM OXIDE 400 MG TABLET PO SCH ×2 (09:26→18:31)
[2018-04-04] MEDS: FAMOTIDINE 20 MG TABLET PO SCH ×2 (09:26→21:15)
[2018-04-04] MEDS: GLIPIZIDE 5 MG TABLET PO SCH (09:26)
[2018-04-04] MEDS: CEFEPIME 2 GM/D5W RTU 2 GM/50 ML RTUPB IV SCH ×2 (09:26→21:16)
[2018-04-04] MEDS: FUROSEMIDE 40 MG TABLET PO SCH (09:26)
[2018-04-04] MEDS: CHOLECALCIFEROL (D3) 1,000 UNIT TABLET PO SCH (09:26)
[2018-04-04] MEDS: BUDESONIDE/FORMOTEROL 160-4.5 MCG 60 PUFF/6 GM MDI IH SCH ×2 (09:27→21:16)
[2018-04-04] MEDS: POTASSIUM CHLORIDE 10 MEQ CAPSULE.ER PO SCH ×2 (09:27→20:09)
[2018-04-04] MEDS: FLUTICASONE NASAL SPRAY 50 MCG/SPRY 120 SPRAY/16 GM NASL SCH ×2 (09:28→21:16)
[2018-04-04] MEDS: NYSTATIN TOPICAL POWDER 15 GM TP SCH ×2 (09:29→20:14)
--- NOTE | 2018-04-04 10:41 | PDOC PROGRESS REPORT ---
Subjective Progress Note for:: 04/04/18 Subjective:: 04/01/[id number]-vhej-old female with history of COPD anxiety disorder admitted for respiratory distress. She was placed on the BiPAP in the emergency room. And the continue the BiPAP during the hospital stay. Patient was obtunded when she came to the ER. This morning patient is alert and awake communicating well without any problems. Patient was still on BiPAP. Acute events since the admission. She is afebrile. 04/04/2018 patient is alert and oriented communicating very well. Patient is on 6 L nasal cannula. Afebrile in the last 24 hours. She was using BiPAP at night. Patient says is helping her a lot. Reason For Visit: COPD EXACERBATION ACUTE RESPIRATORY FAILURE Physical Exam Vital Signs: Temp Pulse Resp BP Pulse Ox 97.6 F 68 13 107/52 L 100 04/04/18 07:30 04/04/18 07:30 04/04/18 07:30 04/04/18 07:30 04/04/18 07:30 Intake & Output 04/03/18 04/04/18 04/05/18 06:59 06:59 06:59 Intake Total 2025 1058 50 Output Total 1265 200 Balance 760 858 50 Weight 90.8 kg 91.8 kg General appearance: PRESENT: mild distress Head exam: PRESENT: atraumatic Eye exam: PRESENT: PERRLA Mouth exam: PRESENT: moist Neck exam: ABSENT: carotid bruit, JVD, lymphadenopathy, thyromegaly Respiratory exam: PRESENT: decreased breath sounds, unlabored Cardiovascular exam: PRESENT: tachycardia GI/Abdominal exam: PRESENT: normal bowel sounds, soft. ABSENT: distended, guarding, mass, organolmegaly, rebound, tenderness Neurological exam: PRESENT: alert, awake, oriented to person, oriented to place , oriented to time, oriented to situation, CN II-XII grossly intact. ABSENT: motor sensory deficit Psychiatric exam: PRESENT: appropriate affect, normal mood. ABSENT: homicidal ideation, suicidal ideation Results Laboratory Results: 04/03/18 06:00 04/03/18 06:00 04/01/18 10:57 Sputum Gram Stain - Final Impressions: Chest CT 04/01/18 00:00 IMPRESSION: Obstructive lung disease, similar compared to CT exam from 12/28/2011 Assessment & Plan - Diagnosis (1) Acute respiratory failure with hypoxia and hypercapnia Is this a current diagnosis for this admission?: Yes Plan: 04/01/2018-acute on chronic respiratory failure with hypoxia and hypercapnia may be secondary to severe emphysema, possible underlying pneumonia. Pneumonia probably healthcare related or associated. Patient was in the hospital in [place] and was discharged on 03/22/2018. Patient is still on BiPAP. She is getting ipratropium nebulizations. We are going to follow up the ABG. ABG a half from 5 AM pH 7.32/PCO2 87/PO2 107 bicarb is 43. There is a slight decrease in PCO2 levels. 04/04/2018 patient admitted with acute on chronic respiratory failure with hypoxia and hypercapnia secondary to severe emphysema, possible underlying pneumonia. Sputum cultures negative. Patient is on cefepime and vancomycin. we assume that she has healthcare associated pneumonia. Vanco trough is 16.7 on 04/02/2018. I am going to place a consult for pulmonary with Dr. Galeano to evaluate for the need for the BiPAP at night. Presently she is on 6 L nasal cannula saturating at 94-96%. (2) Pneumonia Qualifiers: Pneumonia type: due to unspecified organism Laterality: bilateral Lung location: upper lobe of lung Qualified Code(s): J18.1 - Lobar pneumonia, unspecified organism Is this a current diagnosis for this admission?: Yes Plan: 04/01/2018-patient may have a health care associated pneumonia. Was started on vancomycin and cefepime. Chest x-ray is inconclusive, requested for CT chest without contrast. Sputum cultures and blood cultures are pending. Patient's came in with initial WBC of 14,000, no CBC is 8.9. 12 82,018-the blood cultures are negative and sputum cultures are negative. I am going to discontinue IV vancomycin continue cefepime. (3) Tachycardia Is this a current diagnosis for this admission?: Yes Plan: 04/01/2018 patient came in with tachycardia heart rate of more than 100, she was started on Cardizem 60 mg p.o. every 6 hours. The heart rate now in the 70s. Going to decrease the Cardizem to 60 twice a day. 04/04/2018 -at the time of admission patient heart rate is in the 100s. Today it was 68. sinus Rhythm. I change the Cardizem to 30 mg every 8 hours. Going to continue to monitor the heart rate. (4) Diabetes Qualifiers: Diabetes mellitus type: type 2 Is this a current diagnosis for this admission?: Yes Plan: 04/01/2018-patient was recently diagnosed with diabetes. Probably secondary to chronic steroid use. She was started by the PCP on a glipizide but the patient did not start the medication yet. We are going to put her on a insulin sliding scale. I am going to request for hemoglobin A1c. 04/04/2018-patient's latest blood sugar is 397. He is on IV Solu-Medrol 60 mg every 8 hours. I change the frequency to 60 mg daily. Hemoglobin A1c on 2017 is 6.4. We will continue the insulin sliding scale. - Time Time Spent with patient: 15-24 minutes Medications reviewed and adjusted accordingly: Yes Anticipated discharge: Home
[2018-04-04] MEDS: DILTIAZEM HCL 30 MG TABLET PO SCH ×2 (16:03→21:15)
[2018-04-04] MEDS ORDERED: INSULIN GLARGINE,HUM.REC.ANLOG 1,000 UNIT/10 ML UNIT SUBCUT SCH (17:30)
[2018-04-04] MEDS: INSULIN GLARGINE,HUM.REC.ANLOG 300 UNIT/3 ML INSULN.PEN SUBCUT SCH (18:32)
[2018-04-05] MEDS: IPRATROPIUM/ALBUTEROL 0.5-2.5 MG/3 ML AMPUL NEB SCH ×4 (01:25→20:48)
[2018-04-05] MEDS: HEPARIN SOD (PORCINE) 5,000 UNIT/ML 1 ML SYRINGE SUBCUT SCH ×3 (05:40→21:17)
[2018-04-05] MEDS: DILTIAZEM HCL 30 MG TABLET PO SCH ×3 (05:40→21:17)
[2018-04-05] MEDS: INSULIN LISPRO 100 UNIT/ML 3 ML VIAL SUBCUT PRN ×4 (08:17→22:25)
[2018-04-05] MEDS: FUROSEMIDE 40 MG TABLET PO SCH (08:17)
[2018-04-05] MEDS ORDERED: METHYLPREDNISOLONE INJ 125 MG/2 ML SDV IV SCH (10:00)
--- NOTE | 2018-04-05 10:18 | PDOC PROGRESS REPORT ---
Subjective Progress Note for:: 04/05/18 Subjective:: [birth year]-64-oipk-old female with history of COPD anxiety disorder admitted for respiratory distress. She was placed on the BiPAP in the emergency room. And the continue the BiPAP during the hospital stay. Patient was obtunded when she came to the ER. This morning patient is alert and awake communicating well without any problems. Patient was still on BiPAP. Acute events since the admission. She is afebrile. 04/04/2018 patient is alert and oriented communicating very well. Patient is on 6 L nasal cannula. Afebrile in the last 24 hours. She was using BiPAP at night. Patient says is helping her a lot. 04/05/2018-27 4 L oxygen via nasal cannula pulse ox is 99%. Patient is on family saying that they are using BiPAP during the daytime and also in the nighttime occasionally. Denies any specific complaints today. No acute events in the last 24 hours. Reason For Visit: COPD EXACERBATION ACUTE RESPIRATORY FAILURE Physical Exam Vital Signs: Temp Pulse Resp BP Pulse Ox 98.3 F 70 20 111/57 L 99 04/05/18 07:58 04/05/18 07:58 04/05/18 07:58 04/05/18 07:58 04/05/18 07:58 Intake & Output 04/04/18 04/05/18 04/06/18 06:59 06:59 06:59 Intake Total 1058 1758 Output Total 200 700 Balance 858 1058 Weight 91.8 kg 91.4 kg General appearance: PRESENT: mild distress Head exam: PRESENT: atraumatic Eye exam: PRESENT: PERRLA Mouth exam: PRESENT: moist Neck exam: ABSENT: carotid bruit, JVD, lymphadenopathy, thyromegaly Respiratory exam: PRESENT: decreased breath sounds, other - Chest no wheezing no crepitations but bilateral entry was severely decreased. Cardiovascular exam: PRESENT: tachycardia GI/Abdominal exam: PRESENT: normal bowel sounds, soft. ABSENT: distended, guarding, mass, organolmegaly, rebound, tenderness Neurological exam: PRESENT: alert, awake, oriented to person, oriented to place , oriented to time, oriented to situation, CN II-XII grossly intact. ABSENT: motor sensory deficit Psychiatric exam: PRESENT: appropriate affect, normal mood. ABSENT: homicidal ideation, suicidal ideation Results Laboratory Results: 04/03/18 06:00 04/03/18 06:00 04/01/18 10:57 Sputum Gram Stain - Final 04/01/18 10:57 Sputum Sputum Culture - Final NORMAL AIYANA Impressions: Chest CT 04/01/18 00:00 IMPRESSION: Obstructive lung disease, similar compared to CT exam from 12/28/2011 Assessment & Plan - Diagnosis (1) Acute respiratory failure with hypoxia and hypercapnia Is this a current diagnosis for this admission?: Yes Plan: 04/01/2018-acute on chronic respiratory failure with hypoxia and hypercapnia may be secondary to severe emphysema, possible underlying pneumonia. Pneumonia probably healthcare related or associated. Patient was in the hospital in [place] and was discharged on 03/22/2018. Patient is still on BiPAP. She is getting ipratropium nebulizations. We are going to follow up the ABG. ABG a half from 5 AM pH 7.32/PCO2 87/PO2 107 bicarb is 43. There is a slight decrease in PCO2 levels. 04/04/2018 patient admitted with acute on chronic respiratory failure with hypoxia and hypercapnia secondary to severe emphysema, possible underlying pneumonia. Sputum cultures negative. Patient is on cefepime and vancomycin. we assume that she has healthcare associated pneumonia. Vanco trough is 16.7 on 04/02/2018. I am going to place a consult for pulmonary with Dr. Galeano to evaluate for the need for the BiPAP at night. Presently she is on 6 L nasal cannula saturating at 94-96%. 04/05/2018-patient is admitted with acute on chronic respiratory failure with hypoxia and hypercapnia secondary to emphysema. And possible pneumonia. Sputum cultures blood cultures are negative. Patient is now on cefepime. afebrile the last 48-72 hours. I am going to stop the antibiotics today. Neurologist Dr. Galeano is here with the patient to assess the needs for BIPAP as an outpatient. On examination chest bilateral entry was severely decreased no wheezing no crepitations. (2) Pneumonia Qualifiers: Pneumonia type: due to unspecified organism Laterality: bilateral Lung location: upper lobe of lung Qualified Code(s): J18.1 - Lobar pneumonia, unspecified organism Is this a current diagnosis for this admission?: Yes Plan: 04/01/2018-patient may have a health care associated pneumonia. Was started on vancomycin and cefepime. Chest x-ray is inconclusive, requested for CT chest without contrast. Sputum cultures and blood cultures are pending. Patient's came in with initial WBC of 14,000, no CBC is 8.9. -the blood cultures are negative and sputum cultures are negative. I am going to discontinue IV vancomycin continue cefepime. 04/05/2018-is afebrile in the last 48 hours to 72 hours blood cultures and sputum cultures are negative I am planning to discontinue antibiotics today. (3) Tachycardia Is this a current diagnosis for this admission?: Yes Plan: 04/01/2018 patient came in with tachycardia heart rate of more than 100, she was started on Cardizem 60 mg p.o. every 6 hours. The heart rate now in the 70s. Going to decrease the Cardizem to 60 twice a day. 04/04/2018 -at the time of admission patient heart rate is in the 100s. Today it was 68. sinus Rhythm. I change the Cardizem to 30 mg every 8 hours. Going to continue to monitor the heart rate. 04/05/2018 the heart rate today is a 70. Patient is on Cardizem 30 mg every 8 hours. Heart rate is relatively controlled. We will continue the current management. Pressure today is well controlled 115/57. (4) Diabetes Qualifiers: Diabetes mellitus type: type 2 Is this a current diagnosis for this admission?: Yes Plan: 04/01/2018-patient was recently diagnosed with diabetes. Probably secondary to chronic steroid use. She was started by the PCP on a glipizide but the patient did not start the medication yet. We are going to put her on a insulin sliding scale. I am going to request for hemoglobin A1c. 04/04/2018-patient's latest blood sugar is 397. He is on IV Solu-Medrol 60 mg every 8 hours. I change the frequency to 60 mg daily. Hemoglobin A1c on 2017 is 6.4. We will continue the insulin sliding scale. 04/05/2018-patient blood sugar today is 367. She is getting glipizide 5 mg p.o. daily and also insulin sliding scale. Hemoglobin A1c 6.4. pt is on methyl prednisone and changed it to prednisone tablet 10 mg p.o. twice daily. increased her glipizide to 5 mg p.o. twice daily. Lantus was increased to 10 units subcu twice daily. And we will continue the sliding scale. Dietary consult was requested. - Time Time Spent with patient: 15-24 minutes Medications reviewed and adjusted accordingly: Yes Anticipated discharge: Home
[2018-04-05] MEDS: DIAZEPAM 5 MG TABLET PO PRN ×2 (10:29→17:13)
[2018-04-05] MEDS: FAMOTIDINE 20 MG TABLET PO SCH ×2 (10:29→21:17)
[2018-04-05] MEDS: MAGNESIUM OXIDE 400 MG TABLET PO SCH ×2 (10:30→17:10)
[2018-04-05] MEDS: POTASSIUM CHLORIDE 10 MEQ CAPSULE.ER PO SCH ×2 (10:30→17:10)
[2018-04-05] MEDS: CHOLECALCIFEROL (D3) 1,000 UNIT TABLET PO SCH (10:30)
[2018-04-05] MEDS: FLUTICASONE NASAL SPRAY 50 MCG/SPRY 120 SPRAY/16 GM NASL SCH ×2 (10:30→21:18)
[2018-04-05] MEDS: NYSTATIN TOPICAL POWDER 15 GM TP SCH ×2 (10:31→17:10)
[2018-04-05] MEDS: BUDESONIDE/FORMOTEROL 160-4.5 MCG 60 PUFF/6 GM MDI IH SCH ×2 (10:31→21:18)
[2018-04-05] MEDS: CEFEPIME 2 GM/D5W RTU 2 GM/50 ML RTUPB IV SCH (10:36)
[2018-04-05] MEDS: GLIPIZIDE 5 MG TABLET PO SCH ×2 (10:36→16:25)
[2018-04-05] MEDS: INSULIN GLARGINE,HUM.REC.ANLOG 300 UNIT/3 ML INSULN.PEN SUBCUT SCH (10:36)
--- NOTE | 2018-04-05 12:10 | PDOC CONSULTATION ---
Consultation Consult Date: 04/05/18 History of Present Illness Admission Date/PCP: 03/31/18 23:25 JAZZMINE VINCENT MD History of Present Illness: DAMIAN LOWRY is a 72 year old female Past Medical History Cardiac Medical History: Denies: Coronary Artery Disease, Myocardial Infarction, Hypertension Pulmonary Medical History: Reports: Asthma, Bronchitis, Chronic Obstructive Pulmonary Disease (COPD), Pneumonia EENT Medical History: Denies: Cataracts Neurological Medical History: Denies: Multiple Sclerosis, Seizures Renal/ Medical History: Reports: Nephrolithiasis GI Medical History: Reports: Other - Unknown liver disease never followed up Musculoskeltal Medical History: Reports: Arthritis Skin Medical History: Reports: Eczema Traumatic Medical History: Denies: Traumatic Brain Injury Hematology: Denies: Anemia, Sickle Cell Disease Infectious Medical History: Denies: HIV Past Surgical History Past Surgical History: Reports: Hysterectomy Social History Lives with: Family Smoking Status: Former Smoker Frequency of Alcohol Use: None Drugs: None - Advance Directive Resuscitation Status: Full Code Family History Family History: Reviewed & Not Pertinent Medication/Allergy Home Medications: Albuterol Sulfate [Ventolin 0.042% Neb 1.25 mg/3 ml Ampul] 1 vial NEB RTQ4HP PRN 11/11/15 Budesonide/Formoterol Fumarate [Symbicort Hfa 160-4.5 Mcg Inhaler 6 gm] 2 puff IH Q12 11/11/15 Cholecalciferol (Vitamin D3) [Vitamin D3] 2,000 unit PO DAILY 11/11/15 Diazepam [Valium 5 mg Tablet] 5 mg PO Q8HP PRN 11/11/15 Ipratropium/Albuterol Sulfate [Combivent Respimat 4 gm Mdi] 1 puff IH Q4HP PRN 11/11/15 Magnesium Oxide [Magox] 400 mg PO BID 11/11/15 Potassium Chloride [Klor-Con M10] 10 meq PO BID 11/11/15 Furosemide [Lasix 40 mg Tablet] 40 mg PO QAM 04/01/18 Glipizide [Glocotrol 5 Mg Tablet] 5 mg PO DAILY 04/01/18 Hydrocodone/Acetaminophen [Maypearl 7.5-325 mg Tablet] 1 tab PO Q6HP PRN 04/01/18 Ipratropium/Albuterol Sulfate [Duoneb 3 ml Ampul] 3 ml NEB RTQ6HP PRN 04/01/18 Omeprazole 20 mg PO [id number] 04/01/18 Prednisone [Deltasone 10 mg Tablet] 10 mg PO DAILY 04/01/18 Allergies/Adverse Reactions: No Known Allergies Allergy (Verified 11/11/15 10:42) Physical Exam Vital Signs: Temp Pulse Resp BP Pulse Ox 98.3 F 71 17 111/57 L 94 04/05/18 07:58 04/05/18 08:30 04/05/18 08:30 04/05/18 07:58 04/05/18 08:30 Intake & Output 04/04/18 04/05/18 04/06/18 06:59 06:59 06:59 Intake Total 1058 1758 Output Total 200 700 Balance 858 1058 Weight 91.8 kg 91.4 kg General appearance: PRESENT: no acute distress, cooperative, disheveled, obese Head exam: PRESENT: atraumatic, normocephalic Eye exam: PRESENT: conjunctiva pale, EOMI. ABSENT: nystagmus, periorbital swelling, scleral icterus Mouth exam: PRESENT: dry mucosa, neck supple, tongue midline Teeth exam: PRESENT: edentulous Neck exam: ABSENT: carotid bruit, JVD, lymphadenopathy, thyromegaly, tracheal deviation, tracheostomy Respiratory exam: PRESENT: decreased breath sounds, prolonged expiratory phas, rales, rhonchi, unlabored, wheezes. ABSENT: retraction, stridor, tachypnea Cardiovascular exam: PRESENT: RRR, +S1, +S2 Pulses: PRESENT: normal radial pulses GI/Abdominal exam: PRESENT: soft. ABSENT: tenderness Extremities exam: ABSENT: calf tenderness, clubbing, joint swelling, pedal edema Musculoskeletal exam: ABSENT: deformity, dislocation Neurological exam: PRESENT: alert, awake Psychiatric exam: PRESENT: appropriate affect Skin exam: PRESENT: dry, warm Results Laboratory Results: 04/03/18 06:00 04/03/18 06:00 04/01/18 10:57 Sputum Gram Stain - Final 04/01/18 10:57 Sputum Sputum Culture - Final NORMAL AIYANA Impressions: Chest CT 04/01/18 00:00 IMPRESSION: Obstructive lung disease, similar compared to CT exam from 12/28/2011 Assessment & Plan - Diagnosis (1) COPD (chronic obstructive pulmonary disease) with emphysema Qualifiers: Emphysema type: centrilobular Qualified Code(s): J43.2 - Centrilobular emphysema Is this a current diagnosis for this admission?: Yes Plan: I am also concerned in regards to the patient having gnomy-7-rfnfjkrwnof deficiency. Brother has advanced lung disease at age 40. She has 2 sons before age 50 due to COPD. Spouse as well before age 50 due to COPD The above patient has failed BiPAP. This patient would benefit from noninvasive mechanical ventilation via the trilogy AVAPS/AE and faster responding AVAPS rates. The trilogy is able to provide a target tidal volume and also adjusting the EPAP pressures to maintain a patent airway as well as an oral backup rate this machine will help improve PaCO2 levels. The severity of the patient's condition will lead to future hospitalizations and readmissions as well as life-threatening situations without the use of this device day and night. Trilogy home vent needed for hypercapnic respiratory failure. [facility] or [facility] to follow for trilogy set up. (2) Acute respiratory failure with hypoxia and hypercapnia Is this a current diagnosis for this admission?: Yes Plan: Labs- All tests 24 hr 03/31/18 03/31/18 04/01/18 21:12 22:34 03:40 ABG pH 7.30 L ABG pCO2 92.5 H* ABG pO2 91.0 ABG O2 Saturation 95.6 VBG pH 7.31 7.35 VBG pCO2 93.5 H* 83.4 H* FiO2 50% 04/01/18 04/01/18 04/02/18 05:08 10:20 12:00 ABG pH 7.32 L 7.38 7.46 H ABG pCO2 87.1 H* 79.8 H* 57.9 H ABG pO2 107.6 H 116.3 H 105.0 H ABG O2 Saturation 97.2 97.9 97.9 VBG pH VBG pCO2 FiO2 50% 50% 45%
[2018-04-05 12:54] LABS: HEMATOCRIT 33.3 % (36.0-47.0); HEMOGLOBIN 11.2 g/dL (12.0-15.5); MEAN CORPUSCULAR HEMOGLOBIN 30.5 pg (27.0-33.4); MEAN CORPUSCULAR HGB CONC 33.6 g/dL (32.0-36.0); MEAN CORPUSCULAR VOLUME 91 fl (80-97); PLATELET COUNT 181 10^3/uL (150-450); RED BLOOD COUNT 3.68 10^6/uL (3.72-5.28); RED CELL DISTRIBUTION WIDTH 14.6 % (11.5-14.0); WHITE BLOOD COUNT 15.8 10^3/uL (4.0-10.5)
[2018-04-05 13:19] LABS: ALANINE AMINOTRANSFERASE 77 U/L (9-52); ALBUMIN 3.5 g/dL (3.5-5.0); ALKALINE PHOSPHATASE 84 U/L (38-126); ASPARTATE AMINO TRANSFERASE 93 U/L (14-36); BILIRUBIN,DIRECT 0.2 mg/dL (0.0-0.4); BILIRUBIN,TOTAL 0.5 mg/dL (0.2-1.3); BLOOD UREA NITROGEN 39 mg/dL (7-20); CALCIUM 10.2 mg/dL (8.4-10.2); CHLORIDE 91 mmol/L (98-107); GLUCOSE 257 mg/dL (75-110); POTASSIUM 4.5 mmol/L (3.6-5.0); SODIUM 138.3 mmol/L (137-145); TOTAL PROTEIN 6.2 g/dL (6.3-8.2)
[2018-04-05 13:26] LABS: ANION GAP 8 (5-19); CARBON DIOXIDE 39 mmol/L (22-30)
[2018-04-05 13:30] LABS: ABSOLUTE LYMPHOCYTES# (MANUAL) 1.9 10^3/uL (0.5-4.7); ABSOLUTE MONOCYTES # (MANUAL) 0.8 10^3/uL (0.1-1.4); ABSOLUTE NEUTROPHILS# (MANUAL) 13.1 10^3/uL (1.7-8.2); BASOPHILS % (MANUAL) 0 % (0-2); EOSINOPHILS % (MANUAL) 0 % (0-6); HYPOCHROMASIA SLIGHT; LYMPHOCYTES % (MANUAL) 12 % (13-45); METAMYELOCYTES % (MANUAL) 2 % (0); MONOCYTES % (MANUAL) 5 % (3-13); PLATELET COMMENT ADEQUATE; SEGMENTED NEUTROPHILS % (MAN) 81 % (42-78); TOTAL CELLS COUNTED 100; TOXIC GRANULATION SLIGHT
[2018-04-05] MEDS ORDERED: ROFLUMILAST 500 MCG TABLET PO ONE (14:00)
[2018-04-05] MEDS: INSULIN GLARGINE,HUM.REC.ANLOG 1,000 UNIT/10 ML UNIT SUBCUT SCH (17:09)
[2018-04-05] MEDS: PREDNISONE 10 MG TABLET PO SCH (17:10)
[2018-04-06] MEDS: IPRATROPIUM/ALBUTEROL 0.5-2.5 MG/3 ML AMPUL NEB SCH ×4 (01:54→20:11)
[2018-04-06] MEDS: HEPARIN SOD (PORCINE) 5,000 UNIT/ML 1 ML SYRINGE SUBCUT SCH ×3 (05:36→22:27)
[2018-04-06] MEDS: DILTIAZEM HCL 30 MG TABLET PO SCH (05:36)
[2018-04-06] MEDS ORDERED: MAG HYDROX/AL HYDROX/SIMETH SUSP 30 ML UDCUP PO PRN (06:36)
[2018-04-06] MEDS: FUROSEMIDE 40 MG TABLET PO SCH (08:16)
[2018-04-06] MEDS: GLIPIZIDE 5 MG TABLET PO SCH ×2 (08:16→16:44)
[2018-04-06] MEDS: INSULIN LISPRO 100 UNIT/ML 3 ML VIAL SUBCUT PRN ×3 (08:16→22:28)
--- NOTE | 2018-04-06 09:21 | RADIOLOGY REPORT (SQ) ---
EXAM DESCRIPTION: DIONTE SWALLOW COMPLETED DATE/TIME: 04/06/2018 9:06 am REASON FOR STUDY: dysphagia COMPARISON: None. TECHNIQUE: Videofluoroscopic swallowing examination was performed in conjunction with speech patholo gy. Videofluoroscopic imaging was obtained and reviewed and these are the findings: RADIATION DOSE: Fluoro time 1.5 minutes 1 images saved to PACS. LIMITATIONS: None FINDINGS: The patient was brought into the fluoro room and placed upright on a modified barium swall ow chair. The patient was then given multiple consistencies mixed with barium to swallow under live fluoroscopic video guidance. According to the Speech Pathologist there was trace penetration with th in barium. No aspiration identified. All other consistencies were swallowed without incident. [place] e refer to the speech pathology report for further details. IMPRESSION: TRACE LARYNGEAL PENETRATION WITH THIN BARIUM, WITHOUT ASPIRATION.PLEASE SEE SPEECH PATHO LOGIST REPORT FOR OTHER FINDINGS AND RECOMMENDATIONS. COMMENT: NONE Quality ID [id number]: Final reports for procedures using fluoroscopy that document radiation exposure quan marc, or exposure time and number of fluorographic images (if radiation exposure indices are not avail able) TECHNICAL DOCUMENTATION: JOB ID: [id number] [employer]- All Rights Reserved Reading location - IP/workstation name: [email or web address]
[2018-04-06] MEDS: CHOLECALCIFEROL (D3) 1,000 UNIT TABLET PO SCH (09:24)
[2018-04-06] MEDS: POTASSIUM CHLORIDE 10 MEQ CAPSULE.ER PO SCH ×2 (09:24→17:38)
[2018-04-06] MEDS: MAGNESIUM OXIDE 400 MG TABLET PO SCH ×2 (09:24→17:38)
[2018-04-06] MEDS: INSULIN GLARGINE,HUM.REC.ANLOG 1,000 UNIT/10 ML UNIT SUBCUT SCH ×2 (09:24→17:38)
[2018-04-06] MEDS: PREDNISONE 10 MG TABLET PO SCH ×2 (09:24→17:38)
[2018-04-06] MEDS: FAMOTIDINE 20 MG TABLET PO SCH ×2 (09:24→22:27)
[2018-04-06] MEDS: BUDESONIDE/FORMOTEROL 160-4.5 MCG 60 PUFF/6 GM MDI IH SCH ×2 (09:25→22:28)
[2018-04-06] MEDS: FLUTICASONE NASAL SPRAY 50 MCG/SPRY 120 SPRAY/16 GM NASL SCH ×2 (09:25→22:28)
[2018-04-06] MEDS: NYSTATIN TOPICAL POWDER 15 GM TP SCH ×2 (09:27→17:38)
[2018-04-06] MEDS ORDERED: DILTIAZEM HCL 30 MG TABLET PO ONE (10:45)
[2018-04-06] MEDS ORDERED: DILTIAZEM HCL INJ 25 MG/5 ML VIAL IV PRN (10:53)
--- NOTE | 2018-04-06 10:58 | PDOC PROGRESS REPORT ---
Subjective Progress Note for:: 04/06/18 Subjective:: 04/01/[id number] female with history of COPD anxiety disorder admitted for respiratory distress. She was placed on the BiPAP in the emergency room. And the continue the BiPAP during the hospital stay. Patient was obtunded when she came to the ER. This morning patient is alert and awake communicating well without any problems. Patient was still on BiPAP. Acute events since the admission. She is afebrile. 04/04/2018 patient is alert and oriented communicating very well. Patient is on 6 L nasal cannula. Afebrile in the last 24 hours. She was using BiPAP at night. Patient says is helping her a lot. 04/05/2018-27 4 L oxygen via nasal cannula pulse ox is 99%. Patient is on family saying that they are using BiPAP during the daytime and also in the nighttime occasionally. Denies any specific complaints today. No acute events in the last 24 hours. 04/06/2000 [id number] female with history of COPD CHF atrial fibrillation admitted for respiratory distress. She was admitted with acute on chronic respiratory failure with hypoxia and hypercapnia. She was placed on BiPAP. Pulmonary consult was done Dr. Galeano's recommendation is she needs to be on AVAPS because patient is unable to tolerate BiPAP. Today nurse called me and told me patient has atrial fibrillation with heart rate is around 160. She was given Cardizem p.o. once and Cardizem was increased to 60 mg 3 times daily. I am also going to put her on Cardizem . 30 mg IV every 6 as needed. For cardiology consult and echocardiogram. Patient complaining of irritation and discomfort in the throat requesting GI cocktail. Patient has a barium swallow was done mild laryngeal penetration without aspiration. Reason For Visit: COPD EXACERBATION ACUTE RESPIRATORY FAILURE Physical Exam Vital Signs: Temp Pulse Resp BP Pulse Ox 97.9 F 77 18 112/45 L 95 04/06/18 00:28 04/06/18 08:26 04/06/18 08:26 04/06/18 00:28 04/06/18 08:26 Intake & Output 04/05/18 04/06/18 04/07/18 06:59 06:59 06:59 Intake Total 1758 1280 Output Total 700 Balance 1058 1280 Weight 91.4 kg 91.5 kg General appearance: PRESENT: mild distress Head exam: PRESENT: atraumatic Eye exam: PRESENT: PERRLA Mouth exam: PRESENT: moist Neck exam: ABSENT: carotid bruit, JVD, lymphadenopathy, thyromegaly Respiratory exam: PRESENT: decreased breath sounds, tachypnea Cardiovascular exam: PRESENT: tachycardia, other - 90s in atrial fibrillation with heart rate of 160s. Chest pain. GI/Abdominal exam: PRESENT: normal bowel sounds, soft. ABSENT: distended, guarding, mass, organolmegaly, rebound, tenderness Neurological exam: PRESENT: alert, awake, oriented to person, oriented to place , oriented to time, oriented to situation, CN II-XII grossly intact. ABSENT: motor sensory deficit Psychiatric exam: PRESENT: appropriate affect, normal mood. ABSENT: homicidal ideation, suicidal ideation Results Laboratory Results: 04/05/18 12:20 04/05/18 12:20 04/05/18 04/05/18 12:20 12:20 WBC 15.8 H RBC 3.68 L Hgb 11.2 L Hct 33.3 L MCV 91 MCH 30.5 MCHC 33.6 RDW 14.6 H Plt Count 181 Seg Neutrophils % Not Reportable Lymphocytes % Not Reportable Monocytes % Not Reportable Eosinophils % Not Reportable Basophils % Not Reportable Absolute Neutrophils Not Reportable Absolute Lymphocytes Not Reportable Absolute Monocytes Not Reportable Absolute Eosinophils Not Reportable Absolute Basophils Not Reportable Sodium 138.3 Potassium 4.5 Chloride 91 L Carbon Dioxide 39 H Anion Gap 8 BUN 39 H Creatinine 0.83 Est GFR ( Amer) > 60 Est GFR (Non-Af Amer) > 60 Glucose 257 H Calcium 10.2 Magnesium 2.2 Total Bilirubin 0.5 AST 93 H ALT 77 H Alkaline Phosphatase 84 Total Protein 6.2 L Albumin 3.5 Impressions: Chest CT 04/01/18 00:00 IMPRESSION: Obstructive lung disease, similar compared to CT exam from 12/28/2011 Modified Barium Swallow 04/06/18 00:00 IMPRESSION: TRACE LARYNGEAL PENETRATION WITH THIN BARIUM, WITHOUT ASPIRATION.PLEASE SEE SPEECH PATHOLOGIST REPORT FOR OTHER FINDINGS AND RECOMMENDATIONS. Assessment & Plan - Diagnosis (1) Acute respiratory failure with hypoxia and hypercapnia Is this a current diagnosis for this admission?: Yes Plan: 04/01/2018-acute on chronic respiratory failure with hypoxia and hypercapnia may be secondary to severe emphysema, possible underlying pneumonia. Pneumonia probably healthcare related or associated. Patient was in the hospital in [place] and was discharged on 03/22/2018. Patient is still on BiPAP. She is getting ipratropium nebulizations. We are going to follow up the ABG. ABG a half from 5 AM pH 7.32/PCO2 87/PO2 107 bicarb is 43. There is a slight decrease in PCO2 levels. 04/04/2018 patient admitted with acute on chronic respiratory failure with hypoxia and hypercapnia secondary to severe emphysema, possible underlying pneumonia. Sputum cultures negative. Patient is on cefepime and vancomycin. we assume that she has healthcare associated pneumonia. Vanco trough is 16.7 on 04/02/2018. I am going to place a consult for pulmonary with Dr. Galeano to evaluate for the need for the BiPAP at night. Presently she is on 6 L nasal cannula saturating at 94-96%. 04/05/2018-patient is admitted with acute on chronic respiratory failure with hypoxia and hypercapnia secondary to emphysema. And possible pneumonia. Sputum cultures blood cultures are negative. Patient is now on cefepime. afebrile the last 48-72 hours. I am going to stop the antibiotics today. Neurologist Dr. Galeano is here with the patient to assess the needs for BIPAP as an outpatient. On examination chest bilateral entry was severely decreased no wheezing no crepitations. 04/06/2018-patient is admitted with acute on chronic respiratory failure with hypoxia and hypercapnia secondary to emphysema. She has also underlying CHF and atrial fibrillation. Pulmonary consult was done the recommendation is to start on AVAPS. Because patient failed the BiPAP. Patient is on 4 L nasal cannula with pulse ox of 92%. (2) Pneumonia Qualifiers: Pneumonia type: due to unspecified organism Laterality: bilateral Lung location: upper lobe of lung Qualified Code(s): J18.1 - Lobar pneumonia, unspecified organism Is this a current diagnosis for this admission?: Yes Plan: 04/01/2018-patient may have a health care associated pneumonia. Was started on vancomycin and cefepime. Chest x-ray is inconclusive, requested for CT chest without contrast. Sputum cultures and blood cultures are pending. Patient's came in with initial WBC of 14,000, no CBC is 8.9. -the blood cultures are negative and sputum cultures are negative. I am going to discontinue IV vancomycin continue cefepime. 04/05/2018-is afebrile in the last 48 hours to 72 hours blood cultures and sputum cultures are negative I am planning to discontinue antibiotics today. 04/06/2018-patient was admitted with differential diagnosis of healthcare associated pneumonia. She is off the antibiotics. Patient is afebrile. Sputum cultures blood cultures are negative. (3) Tachycardia Is this a current diagnosis for this admission?: Yes Plan: 04/01/2018 patient came in with tachycardia heart rate of more than 100, she was started on Cardizem 60 mg p.o. every 6 hours. The heart rate now in the 70s. Going to decrease the Cardizem to 60 twice a day. 04/04/2018 -at the time of admission patient heart rate is in the 100s. Today it was 68. sinus Rhythm. I change the Cardizem to 30 mg every 8 hours. Going to continue to monitor the heart rate. 04/05/2018 the heart rate today is a 70. Patient is on Cardizem 30 mg every 8 hours. Heart rate is relatively controlled. We will continue the current management. Pressure today is well controlled 115/57. 04/06/2018 patient now is in atrial fibrillation. With heart rate of 170. She is on Cardizem 30 mg p.o. daily 8 hours. She got Cardizem 30 mg p.o. 1 dose now and increased Cardizem to 60 mg every 8 hours. I am also going to start her on Cardizem IV as needed. (4) Diabetes Qualifiers: Diabetes mellitus type: type 2 Is this a current diagnosis for this admission?: Yes Plan: 04/01/2018-patient was recently diagnosed with diabetes. Probably secondary to chronic steroid use. She was started by the PCP on a glipizide but the patient did not start the medication yet. We are going to put her on a insulin sliding scale. I am going to request for hemoglobin A1c. 04/04/2018-patient's latest blood sugar is 397. He is on IV Solu-Medrol 60 mg every 8 hours. I change the frequency to 60 mg daily. Hemoglobin A1c on 2017 is 6.4. We will continue the insulin sliding scale. 04/05/2018-patient blood sugar today is 367. She is getting glipizide 5 mg p.o. daily and also insulin sliding scale. Hemoglobin A1c 6.4. pt is on methyl prednisone and changed it to prednisone tablet 10 mg p.o. twice daily. increased her glipizide to 5 mg p.o. twice daily. Lantus was increased to 10 units subcu twice daily. And we will continue the sliding scale. Dietary consult was requested. 04/06/2018-patient's blood sugar is 184 today. Patient can scale before meals and at bedtime, glipizide 5 mg p.o. twice daily, on Lantus 10 units subcu twice daily. Hemoglobin A1c 6.4. We will continue to monitor the blood sugars and continue the current management. - Time Time Spent with patient: 15-24 minutes Medications reviewed and adjusted accordingly: Yes Anticipated discharge: Home
[2018-04-06] MEDS ORDERED: DILTIAZEM HCL INJ 25 MG/5 ML VIAL ONE (11:13)
[2018-04-06] MEDS: HYDROCODONE/ACETAMINOPHEN 7.5-325 MG TABLET PO PRN (11:29)
--- NOTE | 2018-04-06 11:31 | ST Inp Modified Barium Swallow ---
Medical Diagnosis - Medical Diagnoses Medical Diagnosis Description & ICD-10 Code(s): pneumonia - ICD-10 Tx Diagnosis Coding (1) Dysphagia ICD-10 Code(s): R13.10 - DYSPHAGIA, UNSPECIFIED ST [place] [facility] [place]: 04/06/18 Date of Onset: 04/05/18 - date order was placed - History History Obtained From: Other - EMR -: Medical - per EMR: patient was admitted 03/31/18 with complaint of shortness of breath. Prior medical history includes COPD, anxiety, obesity, deconditioning. Patient also has history of prior pneumonia with intubation x24 hours. Patient is currently on a regular diet, patient does not report symptoms of dysphagia. Medications: Medications Reviewed Allergies: No known allergies - Subjective Current Nutritional Means: PO Current PO Diet: Regular Current Symptoms: Pneumonia Pain: Patient reports, 4/5 - lower back and shoulder pain - Objective Assessment: Upright, Left Lateral - Food Trials Food Trials Used: Thin liquids, Pureed, Regular The Patient: Was Able to Self Feed - Assessment Labial Function: Within Normal Limits Lingual Function: Within Normal Limits Mandibular Function: Within Normal Limits Velo-Pharyngeal Function: Unremarkable - Pharyngeal Stage Initiation of Pharyngeal Stage: Normal Decreased Laryngeal Elevation: No Reduced Velo-Pharyngeal Closure: no Reduced Pressure Generation: No Reduced Tongue Base Retraction: No Pre-Swallowing Pooling in Valleculae: None Pre-Swallowing Pooling in Pyriforms: None Reduced Thyro-Hyiod Approximation: No Reduced Epiglottic Excursion: No Reduced Pharyngeal Peristalsis: No Post Swallow Residuals in Valleculae: None Post Swallow Residuals in Pyriforms: None - Esophageal Stage Cricophageal Function: Normal - Impression/Summary Laryngeal Penetration: Yes, Flash, during swallow - with thin liquids only, cleared Tracheal Aspiration: no Patient Presents With: Normal swallow at eval Risk of Aspiration: Minimal Risk of Nutritional Compromise: WNL - Recommendations Solid Diet Recommendations: Regular Liquid Diet Recommendations: Thin Dysphagia Therapy with PIPELINER: No Recommended Techniques: Fully Upright During Meal - Time Total Time: 20 Total Timed Minutes: 20
[2018-04-06 11:45] LABS: HEMATOCRIT 35.9 % (36.0-47.0); HEMOGLOBIN 12.3 g/dL (12.0-15.5); MEAN CORPUSCULAR HEMOGLOBIN 31.1 pg (27.0-33.4); MEAN CORPUSCULAR HGB CONC 34.2 g/dL (32.0-36.0); MEAN CORPUSCULAR VOLUME 91 fl (80-97); PLATELET COUNT 187 10^3/uL (150-450); RED BLOOD COUNT 3.93 10^6/uL (3.72-5.28); RED CELL DISTRIBUTION WIDTH 14.7 % (11.5-14.0); WHITE BLOOD COUNT 10.2 10^3/uL (4.0-10.5)
[2018-04-06 11:59] LABS: ALANINE AMINOTRANSFERASE 168 U/L (9-52); ALBUMIN 3.7 g/dL (3.5-5.0); ALKALINE PHOSPHATASE 86 U/L (38-126); ASPARTATE AMINO TRANSFERASE 195 U/L (14-36); BILIRUBIN,DIRECT 0.4 mg/dL (0.0-0.4); BILIRUBIN,TOTAL 0.9 mg/dL (0.2-1.3); BLOOD UREA NITROGEN 31 mg/dL (7-20); CALCIUM 10.2 mg/dL (8.4-10.2); CHLORIDE 91 mmol/L (98-107); GLUCOSE 138 mg/dL (75-110); POTASSIUM 3.9 mmol/L (3.6-5.0); SODIUM 140.3 mmol/L (137-145); TOTAL PROTEIN 6.9 g/dL (6.3-8.2)
[2018-04-06 12:08] LABS: ANION GAP 6 (5-19)
[2018-04-06 12:17] LABS: CARBON DIOXIDE 43 mmol/L (22-30)
[2018-04-06 12:50] LABS: ABSOLUTE LYMPHOCYTES# (MANUAL) 0.8 10^3/uL (0.5-4.7); ABSOLUTE MONOCYTES # (MANUAL) 0.8 10^3/uL (0.1-1.4); ABSOLUTE NEUTROPHILS# (MANUAL) 8.5 10^3/uL (1.7-8.2); BAND NEUTROPHILS % (MANUAL) 2 % (3-5); BASOPHILS % (MANUAL) 0 % (0-2); EOSINOPHILS % (MANUAL) 1 % (0-6); LYMPHOCYTES % (MANUAL) 8 % (13-45); MONOCYTES % (MANUAL) 8 % (3-13); PLATELET COMMENT ADEQUATE; POLYCHROMASIA SLIGHT; SEGMENTED NEUTROPHILS % (MAN) 81 % (42-78); TOTAL CELLS COUNTED 100; TOXIC GRANULATION SLIGHT; TOXIC VACUOLATION PRESENT
[2018-04-06] MEDS: DILTIAZEM HCL 60 MG TABLET PO SCH ×2 (13:53→22:27)
[2018-04-06] MEDS ORDERED: DIGOXIN INJ 0.5 MG/2 ML AMPULE ONE (14:43)
--- NOTE | 2018-04-06 15:29 | Pulmonary Function Test ---
Pulmonary Function Test Date of Procedure:: 04/06/18 INDICATION:: Dyspnea Referring Provider: Dr.V. Escudero - Report Spirometry: FVC 1.98 L 74% FEV1 0.47 L 23% FEV1/FVC % 24 predicted 79 FEF 25-75% 0.31 L 16% Impression: Severe obstructive ventilatory defect
[2018-04-06] MEDS ORDERED: MAG HYDROX/AL HYDROX/SIMETH SUSP 30 ML UDCUP PO ONE (20:00)
[2018-04-06] MEDS ORDERED: LIDOCAINE 2% VISCOUS SOLN 20 ML UDCUP PO ONE (20:00)
[2018-04-06] MEDS ORDERED: METOCLOPRAMIDE HCL ORAL SOLN 10 MG/10 ML UDCUP PO ONE (20:00)
[2018-04-06] MEDS: DILTIAZEM HCL/D5W 125 MG/125 ML RTUINJ IV PRN (20:37)
--- NOTE | 2018-04-06 21:07 | EKG REPORT ---
SEVERITY:- ABNORMAL ECG - ATRIAL FIBRILLATION, V-RATE 103-167 VENTRICULAR PREMATURE COMPLEX LEFT AXIS DEVIATION REPOLARIZATION ABNORMALITY, PROB RATE RELATED : Confirmed by: Ngozi Zaidi MD 06-Apr-2018 21:06:26
--- NOTE | 2018-04-06 21:07 | EKG REPORT ---
SEVERITY:- ABNORMAL ECG - SINUS RHYTHM LEFT ANTERIOR FASCICULAR BLOCK BORDERLINE T ABNORMALITIES, ANT-LAT LEADS : Confirmed by: Ngozi Zaidi MD 06-Apr-2018 21:06:17
--- NOTE | 2018-04-06 22:47 | PDOC CONSULTATION ---
Consultation-Blank Consultation: CARDIOLOGY CONSULTATION by Dr. Ngozi Zaidi on 04/06/2018. Patient seen at 3 PM on 04/06/2018. REASON FOR CONSULTATION: Patient with sudden onset of rapid atrial fibrillation. HISTORY OF PRESENT ILLNESS: Patient is a 72-year-old female, with known history of severe COPD who was admitted with acute exacerbation of COPD, and symptoms suggestive of acute bronchitis, on treatment for this, developed sudden onset of rapid heartbeat. Monitor review shows that the patient's atrial fibrillation with rapid ventricular response. The patient does feel palpitations. There is no chest pain or discomfort. There is no increase in her shortness of breath. There is no prior history of atrial fibrillation. There is no PND. The patient has no leg edema, and there is orthopnea present. There is no history of TIA or CVA symptoms.. The patient denies any dizziness , near-syncope, or syncope. PAST MEDICAL HISTORY. Is positive for history of COPD. Recently the patient was admitted to the hospital for pneumonia requiring intubation. This hospital admission the patient came in obtunded but did well and is awake and alert after the patient was given respiratory treatments, antibiotics and placement of BiPAP. The patient is off BiPAP at present. The patient developed atrial fibrillation this admission which is the first episode. There is no prior history of atrial fibrillation or any cardiac arrhythmia. There is no history of syncope. There is no history of coronary artery disease, IA or anginal symptoms. The patient denies history of congestive heart failure. The patient is not a diabetic, but states that her blood sugars go up when she is on steroid therapy. There is no history of chronic kidney disease. There is no history of thyroid disease. She has a history of arthritis. There is no history of GI bleed, but does have a history of GERD. PAST SURGICAL HISTORY: History of right carpal tunnel release surgery x2, left carpal tunnel release surgery x1, left total knee replacement. Also has a past history of hysterectomy. ALLERGIES: No known allergies. SOCIAL HISTORY: Former smoker has not smoked in a few years. No history of EtOH abuse FAMILY HISTORY: Is negative for cardiac arrhythmia, congestive heart failure or coronary artery disease. DISPOSITION: The patient is a full code. Her son is a surrogate healthcare decision maker. REVIEW SYSTEMS: CONSTITUTIONAL:: Denies any fever chills or rigors. Complains of generalized fatigue and weakness. HEAD: No history of headaches or head injury. EYES: No history of amblyopia diplopia. No history of amaurosis fugax. EARS: No history of hearing loss. No history of tinnitus. SKIN: No history of pruritus. No history of yellowish discoloration of the skin. No history of skin cancer. No history of yellowish discoloration of the skin. No history of psoriasis. NOSE: No history of hayfever. No history of nosebleeds. MOUTH: No history of altered taste sensation. No ulcers in the mouth. No bleeding from the gums. THROAT: No history of odynophagia or dysphagia. No history of recurrent sore throats. NECK: No history of symptoms of C-spine arthritis. No history of neck swelling. No history of goiter. LUNGS: History of COPD present. Recent admission to [facility] for respiratory failure requiring intubation due to acute exacerbation of COPD and pneumonia. Patient readmitted to this hospital on 31 March with respiratory failure, patient being very obtunded on admission to the ER, with a history of increasing shortness of breath, and orthopnea. And cough productive of greenish sputum. No history of symptoms suggestive of sleep apnea. The patient's PFTs show that the patient is a severe COPD. HEART: First episode of atrial fibrillation. No history of hypertension. No history of coronary artery disease. No history of IA or angina. No prior history of congestive heart failure. No history of syncope. No history of leg edema. ABDOMEN: No history of fatty food intolerance. No history of abdominal pain. No history of jaundice. History of GERD present. No history of GI bleed. No history of altered bowel movements. ENDOCRINE: No history of diabetes mellitus, but the patient's blood sugar gets elevated when on steroid therapy. No history of polydipsia polyuria. No history of heat or cold intolerance. No history of hirsutism. No history of thyroid disease. No history of excessive sweating. RENAL: No history of chronic kidney disease. No history of symptoms of UTI. No hematuria pyuria dysuria. MUSCULOSKELETAL: Complains of arthritis. No history of collagen vascular disease. DIRECTOR OF DIAGNOSTIC IMAGING: No history of TIA CVA. No history of headaches migraines or seizures. PSYCHIATRIC: No history of anxiety or depression. No suicidal ideation. No homicidal ideation. VASCULAR: No history of calf or buttock claudication. But the patient does not walk a lot due to his COPD. No history of DVT. HEMATOLOGICAL: No history of bleeding diathesis. No history of clotting disorders. METABOLIC: No history of gout. History of moderate obesity present. No hyperlipidemia. PHYSICAL EXAMINATION: The patient is moderately obese. In some mild distress due to palpitations. She denies chest pain or discomfort at this time. She is well-groomed. Selected Entries 04/06/18 04/06/18 04/06/18 10:16 11:38 14:00 Temperature 97.8 F Temperature Axillary Source Pulse Rate 143 H 138 H Respiratory Rate Blood Pressure 122/64 Blood Pressure 83 Mean O2 Sat by Pulse 100 Oximetry Oxygen Flow Rate Oxygen Delivery Bipap Method Percent of 40 Oxygen 04/06/18 15:59 Temperature 97.5 F Temperature Oral Source Pulse Rate 122 H Respiratory 16 Rate Blood Pressure 109/56 L Blood Pressure 73 Mean O2 Sat by Pulse 96 Oximetry Oxygen Flow 4.00 Rate Oxygen Delivery Nasal Cannula Method Percent of Oxygen HEAD: Is atraumatic normocephalic. EYES: Pupils are equal round regular reactive to light and accommodation. There is no clinical pallor. There is no scleral icterus. External ocular movements are normal. EARS: Tympanic membranes are intact. External auditory canals are clear. NOSE: Nasal mucous membranes are not inflamed. There is no deviated nasal septum. MOUTH: Mucous membranes of mouth are moist. Tongue is moist. There is no ulcers. There is no bleeding from the gums. THROAT: There is no redness of the oropharynx. There is no exudates in the throat. SKIN: There is no petechia or ecchymosis. There is no skin rashes or skin lesions. NECK: Is supple. There is no JVD. Carotids are equal there is no bruits. There is no lymphadenopathy. There is no goiter. There is no accessory muscles of respiration in use. Trachea central. LUNGS: There is diminished air entry and prolonged expiration. On percussion there is hyperresonance. There is scattered rhonchi present. There is no rales or wheezing. There is no chest wall tenderness on palpation. HEART : S1-S2 is heard. There is tachycardia present. S1 is of variable intensity. There is no S3 gallop. There is systolic murmur left sternal border and the apex. There is no rub. ABDOMEN: Is obese. Nontender. There is no hepatosplenomegaly. Bowel sounds are well heard. EXTREMITIES: Femorals are deep. Femorals are slightly diminished. There is no femoral bruits. There is no pedal edema. There is no DVT or cellulitis. Leg pulses are diminished. There is no cyanosis or clubbing. Capillary refill is normal. There is no calf tenderness. DIRECTOR OF DIAGNOSTIC IMAGING: The patient is conscious awake alert oriented x3 with no focal deficits. PSYCHIATRIC: The patient judgment and insight are intact her affect is normal. 04/02/18 04/06/18 04/06/18 12:00 11:28 11:28 WBC 10.2 Hgb 12.3 Hct 35.9 L MCV 91 MCH 31.1 MCHC 34.2 RDW 14.7 H Plt Count 187 Total Counted 100 Seg Neuts % (Manual) 81 H Carbonic Acid 1.74 H HCO3/H2CO3 Ratio 22:1 ABG pH 7.46 H ABG pCO2 57.9 H ABG pO2 105.0 H ABG HCO3 40.0 H ABG Total CO2 41.8 H ABG O2 Saturation 97.9 ABG Base Excess 14.1 Sodium 140.3 Potassium 3.9 Chloride 91 L Carbon Dioxide 43 H* BUN 31 H Creatinine 0.74 Est GFR (Non-Af Amer) > 60 Glucose 138 H Calcium 10.2 Magnesium 2.3 Total Bilirubin 0.9 Direct Bilirubin 0.4 Neonat Total Bilirubin Not Reportable Neonat Direct Bilirubin Not Reportable Neonat Indirect Bili Not Reportable AST 195 H ALT 168 H Alkaline Phosphatase 86 Total Protein 6.9 Albumin 3.7 Home Meds Table Albuterol Sulfate [Ventolin 0.042% Neb 1.25 mg/3 mL Ampul] 1 vial NEB RTQ4HP PRN 11/11/15 Budesonide/Formoterol Fumarate [Symbicort HFA 160-4.5 mcg Inhaler 6 gm] 2 puff IH Q12 11/11/15 Cholecalciferol (Vitamin D3) [Vitamin D3] 2,000 unit PO DAILY 11/11/15 Diazepam [Valium 5 mg Tablet] 5 mg PO Q8HP PRN 11/11/15 Ipratropium/Albuterol Sulfate [Combivent Respimat 4 gm Mdi] 1 puff IH Q4HP PRN 11/11/15 Magnesium Oxide [Magox] 400 mg PO BID 11/11/15 Potassium Chloride [Klor-Con M10] 10 meq PO BID 11/11/15 Furosemide [Lasix 40 mg Tablet] 40 mg PO QAM 04/01/18 Glipizide [Glucotrol 5 mg Tablet] 5 mg PO DAILY 04/01/18 Hydrocodone/Acetaminophen [[place] 7.5-325 mg Tablet] 1 tab PO Q6HP PRN Ipratropium/Albuterol Sulfate [Duoneb 3 ml Ampul] 3 ml NEB RTQ6HP PRN Omeprazole 20 mg PO [id number] 04/01/18 Prednisone [Deltasone 10 mg Tablet] 10 mg PO DAILY 04/01/18 03/31/18 23:20 Acetaminophen [Tylenol 325 mg Tablet] 650 mg PO Q4HP PRN Guaifenesin [Robitussin Syrup 200 mg/10 ml Ud Cup] 200 mg PO Q4HP PRN Hydralazine HCl [Apresoline Inj/Pf 20 mg/1 ml Sdv] 10 mg IV Q6HP PRN 04/01/18 02:00 Ipratropium/Albuterol Sulfate [Duoneb 3 ml Ampul] 3 ml NEB RTQ6 04/01/18 02:26 Flu Vacc Ap2002-60(6Mos Up)/Pf [Fluarix Adlt Quad Vac 0.5 ml Syr] 0.5 ml IM .DISCHARGE PRN 04/01/18 06:00 Heparin Sodium,Porcine [Heparin Inj 5,000 Units/ml 1 ml Syringe] 5,000 unit SUBCUT Q8 Normal Saline [Saline Flush 2.5 ml Monoject Prefil Syrin] 2.5 ml IV Q8 04/01/18 09:40 Diazepam [Valium 5 mg Tablet] 5 mg PO Q8HP PRN 04/01/18 10:00 Famotidine [Pepcid 20 mg Tablet] 20 mg PO Q12 Fluticasone Propionate [Flonase Nasal Drewsey 50 Mcg/Drewsey 16 gm] 2 spray NASL Q12 Potassium Chloride [Klor-Con 10 Meq Capsule ER] 10 meq PO BID 04/01/18 10:15 Albuterol Sulfate [Ventolin 0.042% Neb 1.25 mg/3 ml Ampul] 1.25 mg NEB RTQ4HP PRN 04/01/18 10:17 Dextrose 50%-Water [Dextrose Inj 50% Syringe (25 gm/50 ml)] 12.5 gm IV PRN PRN Dextrose 50%-Water [Dextrose Inj 50% Syringe (25 gm/50 ml)] 25 gm IV PRN PRN Dextrose [Glutose 40% Gel 15 gm Tube] 15 gm PO PRN PRN Dextrose [Glutose 40% Gel 15 gm Tube] 30 gm PO PRN PRN Glucagon,Human Recombinant [Glucagen Inj 1 mg Vial] 1 mg IM PRN PRN Insulin Lispro [Humalog Insulin 100 Unit/1 ml 3 ml Vial] 0 - 12 unit SUBCUT Q6HP PRN 04/01/18 10:37 Ipratropium/Albuterol Sulfate [Combivent Respimat 4 gm Mdi] 1 puff IH Q4HP PRN Ipratropium/Albuterol Sulfate [Duoneb 3 ml Ampul] 3 ml NEB RTQ6HP PRN 04/01/18 11:43 Hydrocodone/Acetaminophen [[place] 7.5-325 mg Tablet] 1 tab PO Q4HP PRN 04/01/18 12:00 Cholecalciferol (Vitamin D3) [Vitamin D3 1000 Unit Tablet] 2,000 unit PO DAILY 04/01/18 18:00 Magnesium Oxide [Mag-Ox 400 mg Tablet] 400 mg PO BID 04/01/18 22:00 Budesonide/Formoterol Fumarate [Symbicort Hfa 160-4.5 Mcg Inhaler 6 gm] 2 puff IH Q12 04/02/18 08:00 Furosemide [Lasix 40 mg Tablet] 40 mg PO QAM 04/02/18 18:00 Nystatin [Mycostatin Topical Powder 15 gm] 1 applic TP BID 04/05/18 14:00 Roflumilast [Daliresp 500 Mcg Tablet] 250 mcg PO NOW ONE 04/05/18 16:00 Glipizide [Glucotrol 5 mg Tablet] 5 mg PO BIDACBS 04/05/18 18:00 Insulin Glargine,Hum.rec.anlog [Lantus Insulin 100 Unit/1 ml 10 ml] 10 unit SUBCUT BID Prednisone [Deltasone 10 mg Tablet] 10 mg PO BID 04/06/18 06:36 Mag Hydrox/Al Hydrox/Simeth [Maalox Plus Susp 30 Udcup] 30 ml PO Q4HP PRN 04/06/18 10:45 Diltiazem HCl [Cardizem 30 mg Tablet] 30 mg PO NOW ONE 04/06/18 10:53 Diltiazem HCl [Cardizem Inj 25 mg/5 ml Vial] 30 mg IV Q6HP PRN 04/06/18 11:13 Diltiazem HCl [Cardizem Inj 25 mg/5 ml Vial] 25 mg .ROUTE .STK-MED ONE 04/06/18 14:00 Diltiazem HCl [Cardizem 60 mg Tablet] 60 mg PO Q8 04/06/18 14:43 Digoxin Inj [Lanoxin Inj 0.5 mg/2 ml Ampule] 0.5 mg .ROUTE .STK-MED ONE 04/06/18 14:52 Diltiazem HCl/D5w [Cardizem RTU Inj 125 mg-D5w 125 ml Premix] 125 mg in 125 ml IV CONTINUOUS 04/06/18 20:00 Lidocaine HCl [Xylocaine 2% Viscous Soln 20 ml Udcup] 15 ml PO NOW ONE Mag Hydrox/Al Hydrox/Simeth [Maalox Plus Susp 30 Udcup] 30 ml PO NOW ONE Metoclopramide HCl [Reglan Oral Soln 10 mg/10 ml Udcup] 10 mg PO NOW ONE 04/07/18 10:00 Aspirin [Aspirin 81 mg Chewable Tablet] 81 mg PO DAILY ATRIAL FIBRILLATION, V-RATE 103-167 VENTRICULAR PREMATURE COMPLEX LEFT AXIS DEVIATION REPOLARIZATION ABNORMALITY, PROB RATE RELATED CHEST X-ray: Shows COPD. No acute infiltrates. No heart failure. Her CT scan of the chest without contrast: Shows severe COPD. No acute infiltrates. BEDSIDE pulmonary function test: Shows severe obstructive defect. IMPRESSION/RECOMMENDATION: 1. Atrial fibrillation with rapid ventricular response. This is the first episode. Most likely related to the patient's COPD/acute exacerbation and infective bronchitis. Recommend starting the patient on Cardizem drip at 5 mg/h , and increasing as tolerated by the patient's heart rate and blood pressure. Note the patient already did get IV digoxin. 2. Acute on chronic respiratory failure. Continue current oxygen and current therapy. 3. ACUTE exacerbation of COPD. Note patient has severe COPD. Continue anti- COPD treatment. 4. Acute infective bronchitis. Continue antibiotics. 5. Recent admission to [facility] in [place] for pneumonia and COPD exacerbation. Recommend getting records from them including any echo cardiogram reports. 6. Hyperglycemia most likely secondary to steroid therapy. 7. The patient's corrected chads vascular to score is 2. We will wait to see if we need to place the patient on chronic anticoagulations therapy, since is the first episode of the patient having atrial fibrillation. MEDICATIONS reviewed. Medications added. Discussed management plan with the hospitalist taking care of the patient. Medical decision making is of high complexity. Note 60 minutes spent on this patient, with more than 50% of time spent in direct patient care. We will follow with you.
[2018-04-07] MEDS: IPRATROPIUM/ALBUTEROL 0.5-2.5 MG/3 ML AMPUL NEB SCH ×4 (01:49→20:37)
[2018-04-07] MEDS: HEPARIN SOD (PORCINE) 5,000 UNIT/ML 1 ML SYRINGE SUBCUT SCH ×3 (05:02→21:39)
[2018-04-07] MEDS: DILTIAZEM HCL 60 MG TABLET PO SCH ×3 (05:02→21:40)
[2018-04-07] MEDS: GLIPIZIDE 5 MG TABLET PO SCH ×2 (08:51→17:14)
[2018-04-07] MEDS: FUROSEMIDE 40 MG TABLET PO SCH (08:51)
[2018-04-07] MEDS: INSULIN LISPRO 100 UNIT/ML 3 ML VIAL SUBCUT PRN ×3 (08:56→17:13)
[2018-04-07] MEDS: INSULIN GLARGINE,HUM.REC.ANLOG 1,000 UNIT/10 ML UNIT SUBCUT SCH ×2 (09:12→17:12)
[2018-04-07] MEDS: FAMOTIDINE 20 MG TABLET PO SCH ×2 (09:15→21:40)
[2018-04-07] MEDS: ASPIRIN 81 MG TABLET, CHEWABLE PO SCH (09:15)
[2018-04-07] MEDS: POTASSIUM CHLORIDE 10 MEQ CAPSULE.ER PO SCH ×2 (09:16→17:17)
[2018-04-07] MEDS: MAGNESIUM OXIDE 400 MG TABLET PO SCH ×2 (09:16→17:14)
[2018-04-07] MEDS: PREDNISONE 10 MG TABLET PO SCH ×2 (09:16→17:17)
[2018-04-07] MEDS: FLUTICASONE NASAL SPRAY 50 MCG/SPRY 120 SPRAY/16 GM NASL SCH ×2 (09:16→21:40)
[2018-04-07] MEDS: CHOLECALCIFEROL (D3) 1,000 UNIT TABLET PO SCH (09:16)
[2018-04-07] MEDS: BUDESONIDE/FORMOTEROL 160-4.5 MCG 60 PUFF/6 GM MDI IH SCH ×2 (09:17→21:40)
--- NOTE | 2018-04-07 11:18 | PDOC PROGRESS REPORT ---
Subjective Progress Note for:: 04/07/18 Subjective:: [birth year]/01[birth year][id number]-ofjb-old female with history of COPD anxiety disorder admitted for respiratory distress. She was placed on the BiPAP in the emergency room. And the continue the BiPAP during the hospital stay. Patient was obtunded when she came to the ER. This morning patient is alert and awake communicating well without any problems. Patient was still on BiPAP. Acute events since the admission. She is afebrile. 04/04/2018 patient is alert and oriented communicating very well. Patient is on 6 L nasal cannula. Afebrile in the last 24 hours. She was using BiPAP at night. Patient says is helping her a lot. 04/05/2018-27 4 L oxygen via nasal cannula pulse ox is 99%. Patient is on family saying that they are using BiPAP during the daytime and also in the nighttime occasionally. Denies any specific complaints today. No acute events in the last 24 hours. 04/06/2018 72-year-old female with history of COPD CHF atrial fibrillation admitted for respiratory distress. She was admitted with acute on chronic respiratory failure with hypoxia and hypercapnia. She was placed on BiPAP. Pulmonary consult was done Dr. Galeano's recommendation is she needs to be on AVAPS because patient is unable to tolerate BiPAP. Today nurse called me and told me patient has atrial fibrillation with heart rate is around 160. She was given Cardizem p.o. once and Cardizem was increased to 60 mg 3 times daily. I am also going to put her on Cardizem . 30 mg IV every 6 as needed. For cardiology consult and echocardiogram. Patient complaining of irritation and discomfort in the throat requesting GI cocktail. Patient has a barium swallow was done mild laryngeal penetration without aspiration. 04/07/2018-patient states she is feeling much better today. She still on BiPAP. No acute events in the last 24 hours. Comfortably in the bed watching TV. Communicating with me very well. Alert and awake. She was started on a Cardizem drip yesterday for A. fib. Cardiology consult was done. Be appreciated. She had a pulmonary function test was done yesterday. Shows severe obstructive ventilatory defect. Reason For Visit: COPD EXACERBATION ACUTE RESPIRATORY FAILURE Physical Exam Vital Signs: Temp Pulse Resp BP Pulse Ox 97.8 F 66 24 H 118/62 97 04/07/18 08:04 04/07/18 08:06 04/07/18 08:04 04/07/18 08:06 04/07/18 08:04 Intake & Output 04/06/18 04/07/18 04/08/18 06:59 06:59 06:59 Intake Total 1280 1403 Output Total 400 Balance 1280 1003 Weight 91.5 kg 90 kg General appearance: PRESENT: mild distress Head exam: PRESENT: atraumatic Eye exam: PRESENT: PERRLA Mouth exam: PRESENT: moist Neck exam: ABSENT: carotid bruit, JVD, lymphadenopathy, thyromegaly Respiratory exam: PRESENT: decreased breath sounds, other - Wheezing at the bases. Cardiovascular exam: PRESENT: RRR, other - Patient is now in normal sinus rhythm. Heart rate 66.. ABSENT: diastolic murmur, rubs, systolic murmur GI/Abdominal exam: PRESENT: normal bowel sounds, soft. ABSENT: distended, guarding, mass, organolmegaly, rebound, tenderness Extremities exam: PRESENT: full ROM. ABSENT: calf tenderness, clubbing, pedal edema Neurological exam: PRESENT: alert, awake, oriented to person, oriented to place , oriented to time, oriented to situation, CN II-XII grossly intact. ABSENT: motor sensory deficit Psychiatric exam: PRESENT: appropriate affect, normal mood. ABSENT: homicidal ideation, suicidal ideation Results Laboratory Results: 04/06/18 11:28 04/06/18 11:28 04/06/18 04/06/18 11:28 11:28 WBC 10.2 RBC 3.93 Hgb 12.3 Hct 35.9 L MCV 91 MCH 31.1 MCHC 34.2 RDW 14.7 H Plt Count 187 Seg Neutrophils % Not Reportable Lymphocytes % Not Reportable Monocytes % Not Reportable Eosinophils % Not Reportable Basophils % Not Reportable Absolute Neutrophils Not Reportable Absolute Lymphocytes Not Reportable Absolute Monocytes Not Reportable Absolute Eosinophils Not Reportable Absolute Basophils Not Reportable Sodium 140.3 Potassium 3.9 Chloride 91 L Carbon Dioxide 43 H* Anion Gap 6 BUN 31 H Creatinine 0.74 Est GFR ( Amer) > 60 Est GFR (Non-Af Amer) > 60 Glucose 138 H Calcium 10.2 Magnesium 2.3 Total Bilirubin 0.9 AST 195 H ALT 168 H Alkaline Phosphatase 86 Total Protein 6.9 Albumin 3.7 Impressions: Chest CT 04/01/18 00:00 IMPRESSION: Obstructive lung disease, similar compared to CT exam from 12/28/2011 Modified Barium Swallow 04/06/18 00:00 IMPRESSION: TRACE LARYNGEAL PENETRATION WITH THIN BARIUM, WITHOUT ASPIRATION.PLEASE SEE SPEECH PATHOLOGIST REPORT FOR OTHER FINDINGS AND RECOMMENDATIONS. Assessment & Plan - Diagnosis (1) Acute respiratory failure with hypoxia and hypercapnia Is this a current diagnosis for this admission?: Yes Plan: 04/01/2018-acute on chronic respiratory failure with hypoxia and hypercapnia may be secondary to severe emphysema, possible underlying pneumonia. Pneumonia probably healthcare related or associated. Patient was in the hospital in [place] and was discharged on 03/22/2018. Patient is still on BiPAP. She is getting ipratropium nebulizations. We are going to follow up the ABG. ABG a half from 5 AM pH 7.32/PCO2 87/PO2 107 bicarb is 43. There is a slight decrease in PCO2 levels. 04/04/2018 patient admitted with acute on chronic respiratory failure with hypoxia and hypercapnia secondary to severe emphysema, possible underlying pneumonia. Sputum cultures negative. Patient is on cefepime and vancomycin. we assume that she has healthcare associated pneumonia. Vanco trough is 16.7 on 04/02/2018. I am going to place a consult for pulmonary with Dr. Galeano to evaluate for the need for the BiPAP at night. Presently she is on 6 L nasal cannula saturating at 94-96%. 04/05/2018-patient is admitted with acute on chronic respiratory failure with hypoxia and hypercapnia secondary to emphysema. And possible pneumonia. Sputum cultures blood cultures are negative. Patient is now on cefepime. afebrile the last 48-72 hours. I am going to stop the antibiotics today. pulmologist Dr. Galeano is here with the patient to assess the needs for BIPAP as an outpatient. On examination chest bilateral entry was severely decreased no wheezing no crepitations. 04/06/2018-patient is admitted with acute on chronic respiratory failure with hypoxia and hypercapnia secondary to emphysema. She has also underlying CHF and atrial fibrillation. Pulmonary consult was done the recommendation is to start on AVAPS. Because patient failed the BiPAP. Patient is on 4 L nasal cannula with pulse ox of 92%. 04/07/2018-patient still on BiPAP. Pulse oxes are 97%. Patient says she is feeling much better. I am going to repeat the ABG today. Pulmonary function tests indicate severe obstructive ventilatory defect. FVC is 74%. If he V1 is 23%. FVC is/FV V1 ratio is 24%. (2) Pneumonia Qualifiers: Pneumonia type: due to unspecified organism Laterality: bilateral Lung location: upper lobe of lung Qualified Code(s): J18.1 - Lobar pneumonia, unspecified organism Is this a current diagnosis for this admission?: Yes Plan: 04/01/2018-patient may have a health care associated pneumonia. Was started on vancomycin and cefepime. Chest x-ray is inconclusive, requested for CT chest without contrast. Sputum cultures and blood cultures are pending. Patient's came in with initial WBC of 14,000, no CBC is 8.9. -the blood cultures are negative and sputum cultures are negative. I am going to discontinue IV vancomycin continue cefepime. 04/05/2018-is afebrile in the last 48 hours to 72 hours blood cultures and sputum cultures are negative I am planning to discontinue antibiotics today. 04/06/2018-patient was admitted with differential diagnosis of healthcare associated pneumonia. She is off the antibiotics. Patient is afebrile. Sputum cultures blood cultures are negative. 04/07/2018-patient is off the antibiotics. Sputum cultures blood cultures negative. She is afebrile in the last 72 hours. (3) Tachycardia Is this a current diagnosis for this admission?: Yes Plan: 04/01/2018 patient came in with tachycardia heart rate of more than 100, she was started on Cardizem 60 mg p.o. every 6 hours. The heart rate now in the 70s. Going to decrease the Cardizem to 60 twice a day. 04/04/2018 -at the time of admission patient heart rate is in the 100s. Today it was 68. sinus Rhythm. I change the Cardizem to 30 mg every 8 hours. Going to continue to monitor the heart rate. 04/05/2018 the heart rate today is a 70. Patient is on Cardizem 30 mg every 8 hours. Heart rate is relatively controlled. We will continue the current management. Pressure today is well controlled 115/57. 04/06/2018 patient now is in atrial fibrillation. With heart rate of 170. She is on Cardizem 30 mg p.o. daily 8 hours. She got Cardizem 30 mg p.o. 1 dose now and increased Cardizem to 60 mg every 8 hours. I am also going to start her on Cardizem IV as needed. 04/07/2018 patient has A. fib with rapid regular rate. Probably secondary to COPD. Cardiology consult was done. She was on Cardizem drip. Rate controlled and normal sinus rhythm. (4) Diabetes Qualifiers: Diabetes mellitus type: type 2 Is this a current diagnosis for this admission?: Yes Plan: 04/01/2018-patient was recently diagnosed with diabetes. Probably secondary to chronic steroid use. She was started by the PCP on a glipizide but the patient did not start the medication yet. We are going to put her on a insulin sliding scale. I am going to request for hemoglobin A1c. 04/04/2018-patient's latest blood sugar is 397. He is on IV Solu-Medrol 60 mg every 8 hours. I change the frequency to 60 mg daily. Hemoglobin A1c on 2017 is 6.4. We will continue the insulin sliding scale. 04/05/2018-patient blood sugar today is 367. She is getting glipizide 5 mg p.o. daily and also insulin sliding scale. Hemoglobin A1c 6.4. pt is on methyl prednisone and changed it to prednisone tablet 10 mg p.o. twice daily. increased her glipizide to 5 mg p.o. twice daily. Lantus was increased to 10 units subcu twice daily. And we will continue the sliding scale. Dietary consult was requested. 04/06/2018-patient's blood sugar is 184 today. Patient can scale before meals and at bedtime, glipizide 5 mg p.o. twice daily, on Lantus 10 units subcu twice daily. Hemoglobin A1c 6.4. We will continue to monitor the blood sugars and continue the current management. 04/07/2018 latest blood sugars are 189. Patient is on glipizide 5 mg p.o. twice a day, Lantus 10 units subcu twice a day. Hemoglobin A1c 6.4. It is not any steroids. We will continue the present management. - Time Time Spent with patient: 15-24 minutes Medications reviewed and adjusted accordingly: Yes Anticipated discharge: Home
[2018-04-07] MEDS: DILTIAZEM HCL/D5W 125 MG/125 ML RTUINJ IV PRN (11:47)
[2018-04-07] MEDS: NYSTATIN TOPICAL POWDER 15 GM TP SCH ×2 (11:48→17:09)
[2018-04-07 12:34] LABS: HEMATOCRIT 37.1 % (36.0-47.0); HEMOGLOBIN 12.4 g/dL (12.0-15.5); MEAN CORPUSCULAR HEMOGLOBIN 30.6 pg (27.0-33.4); MEAN CORPUSCULAR HGB CONC 33.5 g/dL (32.0-36.0); MEAN CORPUSCULAR VOLUME 91 fl (80-97); PLATELET COUNT 181 10^3/uL (150-450); RED BLOOD COUNT 4.06 10^6/uL (3.72-5.28); RED CELL DISTRIBUTION WIDTH 14.7 % (11.5-14.0); WHITE BLOOD COUNT 9.5 10^3/uL (4.0-10.5)
[2018-04-07 12:53] LABS: ALANINE AMINOTRANSFERASE 157 U/L (9-52); ALBUMIN 3.8 g/dL (3.5-5.0); ALKALINE PHOSPHATASE 86 U/L (38-126); ASPARTATE AMINO TRANSFERASE 136 U/L (14-36); BILIRUBIN,DIRECT 0.4 mg/dL (0.0-0.4); BILIRUBIN,TOTAL 0.9 mg/dL (0.2-1.3); BLOOD UREA NITROGEN 30 mg/dL (7-20); CALCIUM 10.5 mg/dL (8.4-10.2); CHLORIDE 91 mmol/L (98-107); GLUCOSE 145 mg/dL (75-110); POTASSIUM 4.2 mmol/L (3.6-5.0); SODIUM 140.4 mmol/L (137-145); TOTAL PROTEIN 7.2 g/dL (6.3-8.2)
[2018-04-07 12:58] LABS: ABSOLUTE LYMPHOCYTES# (MANUAL) 0.8 10^3/uL (0.5-4.7); ABSOLUTE MONOCYTES # (MANUAL) 0.3 10^3/uL (0.1-1.4); ABSOLUTE NEUTROPHILS# (MANUAL) 8.4 10^3/uL (1.7-8.2); BAND NEUTROPHILS % (MANUAL) 1 % (3-5); BASOPHILS % (MANUAL) 0 % (0-2); EOSINOPHILS % (MANUAL) 1 % (0-6); LYMPHOCYTES % (MANUAL) 8 % (13-45); METAMYELOCYTES % (MANUAL) 2 % (0); MONOCYTES % (MANUAL) 3 % (3-13); SEGMENTED NEUTROPHILS % (MAN) 85 % (42-78); TOTAL CELLS COUNTED 100
[2018-04-07 12:59] LABS: ANISOCYTOSIS SLIGHT; OVALOCYTES SLIGHT; TEAR DROP CELLS SLIGHT; TOXIC GRANULATION 1+
[2018-04-07 13:00] LABS: PLATELET COMMENT ADEQUATE; POIKILOCYTOSIS 1+; STOMATOCYTES SLIGHT
[2018-04-07 13:17] LABS: ANION GAP 7 (5-19)
[2018-04-07 13:21] LABS: CARBON DIOXIDE 42 mmol/L (22-30)
[2018-04-07] MEDS: HYDROCODONE/ACETAMINOPHEN 7.5-325 MG TABLET PO PRN (13:40)
[2018-04-07 13:54] LABS: ARTERIAL BLOOD BASE EXCESS 15.1 mmol/L; ARTERIAL BLOOD H2CO3 1.61 mmol/L (1.05-1.35); ARTERIAL BLOOD HCO3 40.7 mmol/L (20-24); ARTERIAL BLOOD O2 SATURATION 95.2 % (94-98); ARTERIAL BLOOD PCO2 53.5 mmHg (35-45); ARTERIAL BLOOD PO2 71.1 mmHg (80-100); ARTERIAL BLOOD TOTAL CO2 42.3 mmol/L (21-25)
[2018-04-07 13:55] LABS: ARTERIAL BLOOD FIO2 2LPM
--- NOTE | 2018-04-07 20:42 | XCELERA REPORT ---
[address] [address] Transthoracic Echocardiogram Report Name: DAMIAN LOWRY Age: 72 yrs Gender: Female : 1945 Patient Status: Inpatient Patient Location: [address] [place], [place] [address] Study Date: 04/07/2018 06:28 PM Height: 63 in Weight: 201 lb BSA: 1.9 m2 Procedure: A two-dimensional transthoracic echocardiogram with color flow and Doppler was performed. Study Quality: Poor. The study was technically difficult with many images being suboptimal in quality. Reason For Study: chf History: CHF. Ordering Physician: VIVIANA JEFFERSON Performed By: Cassidy Sheffield Interpretation Summary The left ventricle is grossly normal size. There is normal left ventricular wall thickness. LV EF is 60% Left ventricular systolic function is normal. Doppler measurements suggest impaired left ventricular relaxation, which is associated with grade I/IV or mild diastolic dysfunction The left ventricular wall motion is normal. The right ventricle is not well visualized secondary to technical limitations Right atrium not well visualized secondary to technical limitations The left atrial size is normal. There is no evidence of mitral valve prolapse. There is no mitral valve stenosis. There is a trace amount of mitral regurgitation The aortic valve is not well visualized secondary to technical limitations There is mild aortic stenosis There is a peak gradient of 21 mm of Hg. There is no LVOT obstruction. No hemodynamically significant valvular aortic stenosis. No aortic regurgitation is present. There is no tricuspid stenosis. Proably trace to mild TR.RVSP is 37 mm of Hg , with RA mean of 10. There is mild pulmonary hypertension by echo The aortic root is not well visualized. There is no pericardial effusion. MMode/2D Measurements & Calculations RVDd: 2.4 cm LVIDd: 4.7 cm FS: 27.0 % Ao root diam: 2.7 cm IVSd: 1.0 cm LVIDs: 3.5 cm EDV(Teich): 104.7 ml Ao root area: 5.8 cm2 LVPWd: 1.0 cm ESV(Teich): 49.7 ml LA dimension: 3.0 cm EF(Teich): 52.5 % LVOT diam: 2.0 cm LVOT area: 3.0 cm2 Doppler Measurements & Calculations MV E max bismark: MV P1/2t max bismark: Ao V2 max: LV V1 max P.0 cm/sec 100.8 cm/sec 228.6 cm/sec 7.7 mmHg MV A max bismark: MV P1/2t: 68.8 msec Ao max PG: LV V1 max: 96.3 cm/sec MVA(P1/2t): 3.2 cm2 20.9 mmHg 138.7 cm/sec MV E/A: 0.79 MV dec slope: IFRAH(V,D): 1.8 cm2 428.9 cm/sec2 MV dec time: 0.27 sec PA V2 max: TR max bismark: AV VTI-pr_phl: MV P1/2t-pr_phl: 152.0 cm/sec 257.9 cm/sec 40.3 cm 68.8 msec PA max PG: TR max P.6 mmHg 9.2 mmHg Left Ventricle The left ventricle is grossly normal size. There is normal left ventricular wall thickness. LV EF is 60%. Left ventricular systolic function is normal. Doppler measurements suggest impaired left ventricular relaxation, which is associated with grade I/IV or mild diastolic dysfunction. The left ventricular wall motion is normal. Right Ventricle The right ventricle is not well visualized secondary to technical limitations. Atria Right atrium not well visualized secondary to technical limitations. The left atrial size is normal. Mitral Valve There is no evidence of mitral valve prolapse. There is no vegetation seen on the mitral valve. There is no mitral valve stenosis. There is a trace amount of mitral regurgitation. Aortic Valve The aortic valve is not well visualized secondary to technical limitations. There is mild aortic stenosis. There is a peak gradient of 21 mm of Hg. There is no LVOT obstruction. No hemodynamically significant valvular aortic stenosis. No aortic regurgitation is present. Tricuspid Valve There is no tricuspid stenosis. Proably trace to mild TR.RVSP is 37 mm of Hg , with RA mean of 10. There is mild pulmonary hypertension by echo. Pulmonic Valve The pulmonic valve is not well visualized. Great Vessels The aortic root is not well visualized. Effusions There is no pericardial effusion. : VIVIANA JEFFERSON > Ngozi Zaidi
--- NOTE | 2018-04-07 21:32 | Progress Note ---
Provider Note Provider Note: CARDIOLOGY PROGRESS NOTES by Dr. Ngozi Zaidi on 04/07/2018. SUBJECTIVE: The patient had last night converted to sinus rhythm. She is still on IV Cardizem drip at 10 mg/h. The patient denies any chest pain or discomfort. Her breathing is better but she is still slightly short of breath. There is no wheezing, but there are scattered rhonchi present she still has a cough without any sputum production. There is no TIA CVA symptoms. There is no leg edema. There is no dizziness, syncope or near syncope. There is no ventricular arrhythmia seen on the monitor. Note that the patient is now on antidiabetic treatment, since a hemoglobin A1c was 6.4, and she has been diagnosed with diabetes mellitus. PHYSICAL EXAMINATION: The patient is moderately obese. She is well groomed. In no acute distress. Selected Entries 04/07/18 08:04 Temperature 97.8 F Temperature Oral Source Pulse Rate 71 Respiratory 24 H Rate Blood Pressure 135/55 H Blood Pressure 81 Mean BP Location Left Arm BP Position Sitting O2 Sat by Pulse 97 Oximetry Oxygen Flow 4.00 Rate Oxygen Delivery Nasal Cannula Method HEAD: Is atraumatic normocephalic. EYES: Pupils are equal round regular reactive to light and accommodation. There is no clinical pallor. There is no scleral icterus. External ocular movements are normal. EARS: Tympanic membranes are intact. External auditory canals are clear. NOSE: Nasal mucous membranes are not inflamed. There is no deviated nasal septum. MOUTH: Mucous membranes of mouth are moist. Tongue is moist. There is no ulcers. There is no bleeding from the gums. THROAT: There is no redness of the oropharynx. There is no exudates in the throat. SKIN: There is no petechia or ecchymosis. There is no skin rashes or skin lesions. NECK: Is supple. There is no JVD. Carotids are equal there is no bruits. There is no lymphadenopathy. There is no goiter. There is no accessory muscles of respiration in use. Trachea central. LUNGS: There is diminished air entry and prolonged expiration. On percussion there is hyperresonance. There is a few scattered rhonchi present. There is no rales or wheezing. There is no chest wall tenderness on palpation. HEART: S1-S2 is heard.S1 is of normal intensity. There is no S3 gallop. There is systolic murmur left sternal border and the apex. There is no rub. ABDOMEN: Is obese. Nontender. There is no hepatosplenomegaly. Bowel sounds are well heard. EXTREMITIES: Femorals are deep. Femorals are slightly diminished. There is no femoral bruits. There is no pedal edema. There is no DVT or cellulitis. Leg pulses are diminished. There is no cyanosis or clubbing. Capillary refill is normal. There is no calf tenderness. [employer]GER: The patient is conscious awake alert oriented x3 with no focal deficits. PSYCHIATRIC: The patient judgment and insight are intact her affect is normal. 04/07/18 12:15 Sodium 140.4 Potassium 4.2 Chloride 91 L Carbon Dioxide 42 H* BUN 30 H Creatinine 0.78 Est GFR (Non-Af Amer) > 60 Glucose 145 H Calcium 10.5 H Magnesium 2.4 H Total Bilirubin 0.9 Direct Bilirubin 0.4 Neonat Total Bilirubin Not Reportable Neonat Direct Bilirubin Not Reportable Neonat Indirect Bili Not Reportable AST 136 H ALT 157 H Alkaline Phosphatase 86 Total Protein 7.2 Albumin 3.8 Note the patient will be having an echo done later. We will review this and call and discuss with the patient. IMPRESSION/RECOMMENDATION: 1. Atrial fibrillation with rapid ventricular response. This is the first episode. Most likely related to the patient's COPD/acute exacerbation and infective bronchitis. The patient is now in sinus rhythm. Would recommend diiscontinuing the patient's Cardizem drip, and starting the patient on Cardizem orally, and an increase the dose as tolerated, and also aspirin 325 mg p.o. daily enteric-coated. We will get a 30-day event monitor as an outpatient , to see if there are recurrent episodes of proximal atrial fibrillation, in which case will place the patient on chronic anticoagulation therapy i.e. Eliquis 5 mg p.o. twice daily. 2. Acute on chronic respiratory failure. Continue current oxygen and current therapy. This is resolved 3. ACUTE exacerbation of COPD. Note the acute exacerbation resolved, patient back to baseline. Note patient has severe COPD. Continue anti-COPD treatment. 4. Acute infective bronchitis. This is resolved. Continue antibiotics. 5. Recent admission to [facility] in [place] for pneumonia and COPD exacerbation. Recommend getting records from them including any echo cardiogram reports. 6. Diabetes Mellitus: Continue antidiabetic medication. This is a new diagnosis. 7. GERD: Continue proton pump inhibitors. Medications reviewed medications adjusted. Management plan discussed with attending physician on the case. Note medical decision making is of high complexity. 40 minutes spent on this patient, with more than 50% of time spent in direct patient care. We will follow with you.
[2018-04-08] MEDS: IPRATROPIUM/ALBUTEROL 0.5-2.5 MG/3 ML AMPUL NEB SCH ×2 (02:22→08:50)
[2018-04-08] MEDS: DILTIAZEM HCL 60 MG TABLET PO SCH (05:05)
[2018-04-08] MEDS: HEPARIN SOD (PORCINE) 5,000 UNIT/ML 1 ML SYRINGE SUBCUT SCH (05:05)
[2018-04-08] MEDS: HYDROCODONE/ACETAMINOPHEN 7.5-325 MG TABLET PO PRN (10:17)
[2018-04-08] MEDS: MAGNESIUM OXIDE 400 MG TABLET PO SCH (10:45)
[2018-04-08] MEDS: CHOLECALCIFEROL (D3) 1,000 UNIT TABLET PO SCH (10:46)
[2018-04-08] MEDS: FAMOTIDINE 20 MG TABLET PO SCH (10:46)
[2018-04-08] MEDS: ASPIRIN 81 MG TABLET, CHEWABLE PO SCH (10:48)
[2018-04-08] MEDS: POTASSIUM CHLORIDE 10 MEQ CAPSULE.ER PO SCH (10:48)
[2018-04-08] MEDS: PREDNISONE 10 MG TABLET PO SCH (10:48)
[2018-04-08] MEDS: FUROSEMIDE 40 MG TABLET PO SCH (10:49)
[2018-04-08] MEDS: BUDESONIDE/FORMOTEROL 160-4.5 MCG 60 PUFF/6 GM MDI IH SCH (10:49)
[2018-04-08] MEDS: GLIPIZIDE 5 MG TABLET PO SCH (10:49)
[2018-04-08] MEDS: INSULIN GLARGINE,HUM.REC.ANLOG 1,000 UNIT/10 ML UNIT SUBCUT SCH (10:51)
[2018-04-08] MEDS: FLUTICASONE NASAL SPRAY 50 MCG/SPRY 120 SPRAY/16 GM NASL SCH (10:52)
[2018-04-08] MEDS: NYSTATIN TOPICAL POWDER 15 GM TP SCH (10:52)
[2018-04-08 11:00] VITALS: BP 107/70
--- NOTE | 2018-04-08 12:25 | PDOC PROGRESS REPORT ---
Subjective Progress Note for:: 04/08/18 Subjective:: [birth year]/01[birth year][id number]-xiro-old female with history of COPD anxiety disorder admitted for respiratory distress. She was placed on the BiPAP in the emergency room. And the continue the BiPAP during the hospital stay. Patient was obtunded when she came to the ER. This morning patient is alert and awake communicating well without any problems. Patient was still on BiPAP. Acute events since the admission. She is afebrile. 04/04/2018 patient is alert and oriented communicating very well. Patient is on 6 L nasal cannula. Afebrile in the last 24 hours. She was using BiPAP at night. Patient says is helping her a lot. 04/05/2018-27 4 L oxygen via nasal cannula pulse ox is 99%. Patient is on family saying that they are using BiPAP during the daytime and also in the nighttime occasionally. Denies any specific complaints today. No acute events in the last 24 hours. 04/06/2018 72-year-old female with history of COPD CHF atrial fibrillation admitted for respiratory distress. She was admitted with acute on chronic respiratory failure with hypoxia and hypercapnia. She was placed on BiPAP. Pulmonary consult was done Dr. Galeano's recommendation is she needs to be on AVAPS because patient is unable to tolerate BiPAP. Today nurse called me and told me patient has atrial fibrillation with heart rate is around 160. She was given Cardizem p.o. once and Cardizem was increased to 60 mg 3 times daily. I am also going to put her on Cardizem . 30 mg IV every 6 as needed. For cardiology consult and echocardiogram. Patient complaining of irritation and discomfort in the throat requesting GI cocktail. Patient has a barium swallow was done mild laryngeal penetration without aspiration. 04/07/2018-patient states she is feeling much better today. She still on BiPAP. No acute events in the last 24 hours. Comfortably in the bed watching TV. Communicating with me very well. Alert and awake. She was started on a Cardizem drip yesterday for A. fib. Cardiology consult was done. Be appreciated. She had a pulmonary function test was done yesterday. Shows severe obstructive ventilatory defect. 04/08/2018 patient is doing much better today patient is on 2 L nasal cannula comfortably sitting in the bed no acute events in the last 24 hours the pulmonary consult was done she is going to go home on BiPAP machine in the atrial fibrillation resolved now is in sinus rhythm. Patient is expressing desire to go home today. Reason For Visit: COPD EXACERBATION ACUTE RESPIRATORY FAILURE Physical Exam Vital Signs: Temp Pulse Resp BP Pulse Ox 98.4 F 77 17 107/70 97 04/08/18 10:58 04/08/18 10:58 04/08/18 10:58 04/08/18 10:58 04/08/18 10:58 Intake & Output 04/07/18 04/08/18 04/09/18 06:59 06:59 06:59 Intake Total 1403 819 Output Total 400 200 Balance 1003 619 Weight 90 kg 90 kg General appearance: PRESENT: no acute distress Head exam: PRESENT: atraumatic Eye exam: PRESENT: PERRLA Mouth exam: PRESENT: dry mucosa Neck exam: ABSENT: carotid bruit, JVD, lymphadenopathy, thyromegaly Respiratory exam: PRESENT: clear to auscultation dorita. ABSENT: rales, rhonchi, wheezes GI/Abdominal exam: PRESENT: normal bowel sounds, soft. ABSENT: distended, guarding, mass, organolmegaly, rebound, tenderness Neurological exam: PRESENT: alert, awake, oriented to person, oriented to place , oriented to time, oriented to situation, CN II-XII grossly intact. ABSENT: motor sensory deficit Psychiatric exam: PRESENT: appropriate affect, normal mood. ABSENT: homicidal ideation, suicidal ideation Results Laboratory Results: 04/07/18 12:15 04/07/18 12:15 04/07/18 04/07/18 04/07/18 12:15 12:15 13:30 WBC 9.5 RBC 4.06 Hgb 12.4 Hct 37.1 MCV 91 MCH 30.6 MCHC 33.5 RDW 14.7 H Plt Count 181 Seg Neutrophils % Not Reportable Lymphocytes % Not Reportable Monocytes % Not Reportable Eosinophils % Not Reportable Basophils % Not Reportable Absolute Neutrophils Not Reportable Absolute Lymphocytes Not Reportable Absolute Monocytes Not Reportable Absolute Eosinophils Not Reportable Absolute Basophils Not Reportable Carbonic Acid 1.61 H HCO3/H2CO3 Ratio 25:1 ABG pH 7.50 H ABG pCO2 53.5 H ABG pO2 71.1 L ABG HCO3 40.7 H ABG O2 Saturation 95.2 ABG Base Excess 15.1 FiO2 2LPM Sodium 140.4 Potassium 4.2 Chloride 91 L Carbon Dioxide 42 H* Anion Gap 7 BUN 30 H Creatinine 0.78 Est GFR ( Amer) > 60 Est GFR (Non-Af Amer) > 60 Glucose 145 H Calcium 10.5 H Magnesium 2.4 H Total Bilirubin 0.9 AST 136 H ALT 157 H Alkaline Phosphatase 86 Total Protein 7.2 Albumin 3.8 Impressions: Chest CT 04/01/18 00:00 IMPRESSION: Obstructive lung disease, similar compared to CT exam from 12/28/2011 Modified Barium Swallow 04/06/18 00:00 IMPRESSION: TRACE LARYNGEAL PENETRATION WITH THIN BARIUM, WITHOUT ASPIRATION.PLEASE SEE SPEECH PATHOLOGIST REPORT FOR OTHER FINDINGS AND RECOMMENDATIONS. Assessment & Plan - Diagnosis (1) Acute respiratory failure with hypoxia and hypercapnia Is this a current diagnosis for this admission?: Yes Plan: 04/01/2018-acute on chronic respiratory failure with hypoxia and hypercapnia may be secondary to severe emphysema, possible underlying pneumonia. Pneumonia probably healthcare related or associated. Patient was in the hospital in [place] and was discharged on 03/22/2018. Patient is still on BiPAP. She is getting ipratropium nebulizations. We are going to follow up the ABG. ABG a half from 5 AM pH 7.32/PCO2 87/PO2 107 bicarb is 43. There is a slight decrease in PCO2 levels. 04/04/2018 patient admitted with acute on chronic respiratory failure with hypoxia and hypercapnia secondary to severe emphysema, possible underlying pneumonia. Sputum cultures negative. Patient is on cefepime and vancomycin. we assume that she has healthcare associated pneumonia. Vanco trough is 16.7 on 04/02/2018. I am going to place a consult for pulmonary with Dr. Galeano to evaluate for the need for the BiPAP at night. Presently she is on 6 L nasal cannula saturating at 94-96%. 04/05/2018-patient is admitted with acute on chronic respiratory failure with hypoxia and hypercapnia secondary to emphysema. And possible pneumonia. Sputum cultures blood cultures are negative. Patient is now on cefepime. afebrile the last 48-72 hours. I am going to stop the antibiotics today. pulmologist Dr. Galeano is here with the patient to assess the needs for BIPAP as an outpatient. On examination chest bilateral entry was severely decreased no wheezing no crepitations. 04/06/2018-patient is admitted with acute on chronic respiratory failure with hypoxia and hypercapnia secondary to emphysema. She has also underlying CHF and atrial fibrillation. Pulmonary consult was done the recommendation is to start on AVAPS. Because patient failed the BiPAP. Patient is on 4 L nasal cannula with pulse ox of 92%. 04/07/2018-patient still on BiPAP. Pulse oxes are 97%. Patient says she is feeling much better. I am going to repeat the ABG today. Pulmonary function tests indicate severe obstructive ventilatory defect. FVC is 74%. If he V1 is 23%. FVC is/FV V1 ratio is 24%. 04/08/2018-patient was admitted with respiratory failure with hypoxia and hypercapnia she was placed on BiPAP, pulmonary consult was requested the recommendation is to put the patient on a valves. She was on IV Solu-Medrol, Xopenex nebulizations, IV Solu-Medrol, oxygen supplementation with BiPAP, she was also started on cefepime and vancomycin. The cultures came back negative. She is so significant improvement during the hospital stay. Patient is going to go home today on 2 L nasal cannula and BiPAP machine to use it at home. We are going to resume the home health. Gentle ABG latest ABG pH is 7.5 PCO2 53.5 p.o. to 41 bicarb is 40. She is a CO2 retainer. She is off the antibiotics for more than 2 days. She is afebrile. (2) Pneumonia Qualifiers: Pneumonia type: due to unspecified organism Laterality: bilateral Lung location: upper lobe of lung Qualified Code(s): J18.1 - Lobar pneumonia, unspecified organism Is this a current diagnosis for this admission?: Yes Plan: 04/01/2018-patient may have a health care associated pneumonia. Was started on vancomycin and cefepime. Chest x-ray is inconclusive, requested for CT chest without contrast. Sputum cultures and blood cultures are pending. Patient's came in with initial WBC of 14,000, no CBC is 8.9. -the blood cultures are negative and sputum cultures are negative. I am going to discontinue IV vancomycin continue cefepime. 04/05/2018-is afebrile in the last 48 hours to 72 hours blood cultures and sputum cultures are negative I am planning to discontinue antibiotics today. 04/06/2018-patient was admitted with differential diagnosis of healthcare associated pneumonia. She is off the antibiotics. Patient is afebrile. Sputum cultures blood cultures are negative. 04/07/2018-patient is off the antibiotics. Sputum cultures blood cultures negative. She is afebrile in the last 72 hours. 04/08/2018 at the time of admission differential diagnosis is healthcare associated pneumonia. She is afebrile since the admission. We stopped antibiotics. Blood cultures and sputum cultures came back negative. She is going home without any antibiotics. (3) Tachycardia Is this a current diagnosis for this admission?: Yes Plan: 04/01/2018 patient came in with tachycardia heart rate of more than 100, she was started on Cardizem 60 mg p.o. every 6 hours. The heart rate now in the 70s. Going to decrease the Cardizem to 60 twice a day. 04/04/2018 -at the time of admission patient heart rate is in the 100s. Today it was 68. sinus Rhythm. I change the Cardizem to 30 mg every 8 hours. Going to continue to monitor the heart rate. 04/05/2018 the heart rate today is a 70. Patient is on Cardizem 30 mg every 8 hours. Heart rate is relatively controlled. We will continue the current management. Pressure today is well controlled 115/57. 04/06/2018 patient now is in atrial fibrillation. With heart rate of 170. She is on Cardizem 30 mg p.o. daily 8 hours. She got Cardizem 30 mg p.o. 1 dose now and increased Cardizem to 60 mg every 8 hours. I am also going to start her on Cardizem IV as needed. 04/07/2018 patient has A. fib with rapid regular rate. Probably secondary to COPD. Cardiology consult was done. She was on Cardizem drip. Rate controlled and normal sinus rhythm. 2017 patient developed A. fib during the hospital stay secondary to COPD exacerbation. Cardiology consult was done. She was started on Cardizem 60 mg p.o. every 8 hours. She is in sinus rhythm now. She was going to see Dr. Zaidi as an outpatient in 2 weeks time. (4) Diabetes Qualifiers: Diabetes mellitus type: type 2 Is this a current diagnosis for this admission?: Yes Plan: 04/01/2018-patient was recently diagnosed with diabetes. Probably secondary to chronic steroid use. She was started by the PCP on a glipizide but the patient did not start the medication yet. We are going to put her on a insulin sliding scale. I am going to request for hemoglobin A1c. 04/04/2018-patient's latest blood sugar is 397. He is on IV Solu-Medrol 60 mg every 8 hours. I change the frequency to 60 mg daily. Hemoglobin A1c on 2017 is 6.4. We will continue the insulin sliding scale. 04/05/2018-patient blood sugar today is 367. She is getting glipizide 5 mg p.o. daily and also insulin sliding scale. Hemoglobin A1c 6.4. pt is on methyl prednisone and changed it to prednisone tablet 10 mg p.o. twice daily. increased her glipizide to 5 mg p.o. twice daily. Lantus was increased to 10 units subcu twice daily. And we will continue the sliding scale. Dietary consult was requested. 04/06/2018-patient's blood sugar is 184 today. Patient can scale before meals and at bedtime, glipizide 5 mg p.o. twice daily, on Lantus 10 units subcu twice daily. Hemoglobin A1c 6.4. We will continue to monitor the blood sugars and continue the current management. 04/07/2018 latest blood sugars are 189. Patient is on glipizide 5 mg p.o. twice a day, Lantus 10 units subcu twice a day. Hemoglobin A1c 6.4. It is not any steroids. We will continue the present management. 04/08/2018-latest blood sugars are 145. Patient is glipizide 5 mg p.o. twice a day Lantus 10 units subcu twice a day. I gave the prescription for glipizide and Lantus. Diet and exercise compliant medication was advised. - Time Time Spent with patient: 15-24 minutes Smoking Cessation Education: 3 to 10 minutes Medications reviewed and adjusted accordingly: Yes Anticipated discharge: Home with Homehealth
--- NOTE | 2018-04-08 21:56 | Progress Note ---
Provider Note Provider Note: CARDIOLOGY PROGRESS NOTES by Dr. Melvin assessment on 04/08/2018. Subjective: The Patient Remains in Sinus Rhythm, with No Recurrence of Atrial Fibrillation. She Denies Any Chest Pain or Shortness of Breath. There Is No PND Orthopnea. There Is No Cough or Wheezing. There Is No Leg Edema. There Is No TIA CVA Symptoms. There Is No Ventricular Arrhythmia Seen on the Monitor. The Patient Has Been Diagnosed As Having Diabetes Mellitus, and Is on Antidiabetic Treatment. Earlier this admission her hemoglobin A1c was 8.4. There is no TIA CVA symptoms. PHYSICAL EXAMINATION: The patient is moderately obese. She is in no acute distress. She is well-groomed. Selected Entries 04/08/18 04/08/18 10:00 10:58 Temperature 98.4 F Pulse Rate 77 Respiratory 17 Rate Blood Pressure 107/70 [Left Upper Arm ] O2 Sat by Pulse 97 Oximetry Oxygen Delivery Nasal Cannula Method ( includes room air) Oxygen Flow 2 Rate HEAD: Is atraumatic normocephalic. EYES: Pupils are equal round regular reactive to light and accommodation. There is no clinical pallor. There is no scleral icterus. External ocular movements are normal. EARS: Tympanic membranes are intact. External auditory canals are clear. NOSE: Nasal mucous membranes are not inflamed. There is no deviated nasal septum. MOUTH: Mucous membranes of mouth are moist. Tongue is moist. There is no ulcers. There is no bleeding from the gums. THROAT: There is no redness of the oropharynx. There is no exudates in the throat. SKIN: There is no petechia or ecchymosis. There is no skin rashes or skin lesions. NECK: Is supple. There is no JVD. Carotids are equal there is no bruits. There is no lymphadenopathy. There is no goiter. There is no accessory muscles of respiration in use. Trachea central. LUNGS: There is diminished air entry and prolonged expiration. On percussion there is hyperresonance. There is no rhonchi present. There is no rales or wheezing. There is no chest wall tenderness on palpation. HEART: S1- S2 is heard.S1 is of normal intensity. There is no S3 gallop. There is systolic murmur left sternal border and the apex. There is no rub. ABDOMEN: Is obese. Nontender. There is no hepatosplenomegaly. Bowel sounds are well heard. EXTREMITIES: Femorals are deep. Femorals are slightly diminished. There is no femoral bruits. There is no pedal edema. There is no DVT or cellulitis. Leg pulses are diminished. There is no cyanosis or clubbing. Capillary refill is normal. There is no calf tenderness. FACILITY OPERATIONS MANAGER: The patient is conscious awake alert oriented x3 with no focal deficits. PSYCHIATRIC: The patient judgment and insight are intact her affect is normal. 04/01/18 04/08/18 11:02 05:47 POC Glucose 107 Hemoglobin A1c % 6.4 H Echo shows normal left ventricular ejection fraction and wall motion. There is mild pulmonary hypertension, and mild aortic stenosis, which is hemodynamically nonsignificant. Please see report. The echo has been discussed with patient patient's daughter. IMPRESSION/RECOMMENDATION: 1. Atrial fibrillation with rapid ventricular response. This is the first episode. Most likely related to the patient's COPD/acute exacerbation and infective bronchitis. The patient is now in sinus rhythm. Would recommend continuing the patient's Cardizem orally, and also aspirin 325 mg p.o. daily enteric-coated. We will get a 30-day event monitor as an outpatient, to see if there are recurrent episodes of proximal atrial fibrillation, at which case we will place the patient on chronic anticoagulation therapy i.e. Eliquis 5 mg p.o. twice daily. 2. Acute on chronic respiratory failure. Continue current oxygen and current therapy. This is resolved 3. ACUTE exacerbation of COPD. Note the acute exacerbation resolved, patient back to baseline. Note patient has severe COPD. Continue anti-COPD treatment. 4. Acute infective bronchitis. This is resolved. Continue antibiotics. 5. Recent admission to [facility] in [place] for pneumonia and COPD exacerbation. Recommend getting records from them including any echo cardiogram reports. 6. Diabetes Mellitus: Continue antidiabetic medication. This is a new diagnosis. 7. GERD: Continue proton pump inhibitors. 8. Abnormal liver function tests:? Etiology. We will follow this as an outpatient. If it remains high then would send the patient to see a hydraulic tester, for further workup. The patient does not seem to be on any medication that can cause hepatic toxicity. The patient has multiple CAD risk factors, hence will also in addition to the 30 -day event monitor as an outpatient, will get a IV Lexiscan Cardiolite stress test to see if the patient does have significant coronary artery disease. This has been discussed with patient patient's daughter. Note medications have been reviewed. Medication changes have been discussed with the attending physician. Note 40 minutes spent on the patient, with more than 50% time spent in direct patient care. Medical decision making I was of moderate complexity. Will sign off the case and, and follow the patient is an outpatient.
--- NOTE | 2018-04-13 12:16 | PDOC DISCHARGE SUMMARY ---
General - Admit/Disc Date/PCP Admission Date/Primary Care Provider: 03/31/18 23:25 JAZZMINE VINCENT MD Discharge Date: 04/08/18 - Discharge Diagnosis (1) Acute respiratory failure with hypoxia and hypercapnia Is this a current diagnosis for this admission?: Yes Summary: 04/08/2018-04/01/2018-acute on chronic respiratory failure with hypoxia and hypercapnia may be secondary to severe emphysema, possible underlying pneumonia. Pneumonia probably healthcare related or associated. Patient was in the hospital in [place] and was discharged on 03/22/2018. Patient is still on BiPAP. She is getting ipratropium nebulizations. We are going to follow up the ABG. ABG a half from 5 AM pH 7.32/PCO2 87/PO2 107 bicarb is 43. There is a slight decrease in PCO2 levels. 04/04/2018 patient admitted with acute on chronic respiratory failure with hypoxia and hypercapnia secondary to severe emphysema, possible underlying pneumonia. Sputum cultures negative. Patient is on cefepime and vancomycin. we assume that she has healthcare associated pneumonia. Vanco trough is 16.7 on 04/02/2018. I am going to place a consult for pulmonary with Dr. Galeano to evaluate for the need for the BiPAP at night. Presently she is on 6 L nasal cannula saturating at 94-96%. 04/05/2018-patient is admitted with acute on chronic respiratory failure with hypoxia and hypercapnia secondary to emphysema. And possible pneumonia. Sputum cultures blood cultures are negative. Patient is now on cefepime. afebrile the last 48-72 hours. I am going to stop the antibiotics today. pulmologist Dr. Galeano is here with the patient to assess the needs for BIPAP as an outpatient. On examination chest bilateral entry was severely decreased no wheezing no crepitations. 04/06/2018-patient is admitted with acute on chronic respiratory failure with hypoxia and hypercapnia secondary to emphysema. She has also underlying CHF and atrial fibrillation. Pulmonary consult was done the recommendation is to start on AVAPS. Because patient failed the BiPAP. Patient is on 4 L nasal cannula with pulse ox of 92%. 04/07/2018-patient still on BiPAP. Pulse oxes are 97%. Patient says she is feeling much better. I am going to repeat the ABG today. Pulmonary function tests indicate severe obstructive ventilatory defect. FVC is 74%. If he V1 is 23%. FVC is/FV V1 ratio is 24%. 04/08/2018-patient was admitted with respiratory failure with hypoxia and hypercapnia she was placed on BiPAP, pulmonary consult was requested the recommendation is to put the patient on a valves. She was on IV Solu-Medrol, Xopenex nebulizations, IV Solu-Medrol, oxygen supplementation with BiPAP, she was also started on cefepime and vancomycin. The cultures came back negative. She is so significant improvement during the hospital stay. Patient is going to go home today on 2 L nasal cannula and BiPAP machine to use it at home. We are going to resume the home health. Gentle ABG latest ABG pH is 7.5 PCO2 53.5 p.o. to 41 bicarb is 40. She is a CO2 retainer. She is off the antibiotics for more than 2 days. She is afebrile. (2) Pneumonia Is this a current diagnosis for this admission?: Yes Summary: 04/01/2018-patient may have a health care associated pneumonia. Was started on vancomycin and cefepime. Chest x-ray is inconclusive, requested for CT chest without contrast. Sputum cultures and blood cultures are pending. Patient's came in with initial WBC of 14,000, no CBC is 8.9. -the blood cultures are negative and sputum cultures are negative. I am going to discontinue IV vancomycin continue cefepime. 04/05/2018-is afebrile in the last 48 hours to 72 hours blood cultures and sputum cultures are negative I am planning to discontinue antibiotics today. 04/06/2018-patient was admitted with differential diagnosis of healthcare associated pneumonia. She is off the antibiotics. Patient is afebrile. Sputum cultures blood cultures are negative. 04/07/2018-patient is off the antibiotics. Sputum cultures blood cultures negative. She is afebrile in the last 72 hours. 04/08/2018 at the time of admission differential diagnosis is healthcare associated pneumonia. She is afebrile since the admission. We stopped antibiotics. Blood cultures and sputum cultures came back negative. She is going home without any antibiotics. (3) Tachycardia Is this a current diagnosis for this admission?: Yes Summary: 04/01/2018 patient came in with tachycardia heart rate of more than 100, she was started on Cardizem 60 mg p.o. every 6 hours. The heart rate now in the 70s. Going to decrease the Cardizem to 60 twice a day. 04/04/2018 -at the time of admission patient heart rate is in the 100s. Today it was 68. sinus Rhythm. I change the Cardizem to 30 mg every 8 hours. Going to continue to monitor the heart rate. 04/05/2018 the heart rate today is a 70. Patient is on Cardizem 30 mg every 8 hours. Heart rate is relatively controlled. We will continue the current management. Pressure today is well controlled 115/57. 04/06/2018 patient now is in atrial fibrillation. With heart rate of 170. She is on Cardizem 30 mg p.o. daily 8 hours. She got Cardizem 30 mg p.o. 1 dose now and increased Cardizem to 60 mg every 8 hours. I am also going to start her on Cardizem IV as needed. 04/07/2018 patient has A. fib with rapid regular rate. Probably secondary to COPD. Cardiology consult was done. She was on Cardizem drip. Rate controlled and normal sinus rhythm. 2017 patient developed A. fib during the hospital stay secondary to COPD exacerbation. Cardiology consult was done. She was started on Cardizem 60 mg p.o. every 8 hours. She is in sinus rhythm now. She was going to see Dr. Zaidi as an outpatient in 2 weeks time. (4) Diabetes Is this a current diagnosis for this admission?: Yes Summary: 04/01/2018-patient was recently diagnosed with diabetes. Probably secondary to chronic steroid use. She was started by the PCP on a glipizide but the patient did not start the medication yet. We are going to put her on a insulin sliding scale. I am going to request for hemoglobin A1c. 04/04/2018-patient's latest blood sugar is 397. He is on IV Solu-Medrol 60 mg every 8 hours. I change the frequency to 60 mg daily. Hemoglobin A1c on is 6.4. We will continue the insulin sliding scale. 04/05/2018-patient blood sugar today is 367. She is getting glipizide 5 mg p.o. daily and also insulin sliding scale. Hemoglobin A1c 6.4. pt is on methyl prednisone and changed it to prednisone tablet 10 mg p.o. twice daily. increased her glipizide to 5 mg p.o. twice daily. Lantus was increased to 10 units subcu twice daily. And we will continue the sliding scale. Dietary consult was requested. 04/06/2018-patient's blood sugar is 184 today. Patient can scale before meals and at bedtime, glipizide 5 mg p.o. twice daily, on Lantus 10 units subcu twice daily. Hemoglobin A1c 6.4. We will continue to monitor the blood sugars and continue the current management. 04/07/2018 latest blood sugars are 189. Patient is on glipizide 5 mg p.o. twice a day, Lantus 10 units subcu twice a day. Hemoglobin A1c 6.4. It is not any st eroids. We will continue the present management. 04/08/2018-latest blood sugars are 145. Patient is glipizide 5 mg p.o. twice a day Lantus 10 units subcu twice a day. I gave the prescription for glipizide and Lantus. Diet and exercise compliant medication was advised. - Additional Information Resuscitation Status: Full Code Discharge Diet: Diabetic Discharge Activity: Activity As Tolerated Prescriptions: Famotidine [Pepcid 20 mg Tablet] 20 mg PO Q12 #60 tablet Glipizide [Glucotrol 5 mg Tablet] 5 mg PO BIDACBS #60 tablet Insulin Detemir [Levemir] 10 unit SQ BID #2 vial Mag Hydrox/Al Hydrox/Simeth [Aldroxicon I Liquid] 30 ml PO Q8PM #120 oral.susp Prednisone 10 mg PO BID #20 tab.ds.pk Home Medications: Albuterol Sulfate [Ventolin 0.042% Neb 1.25 mg/3 mL Ampul] 1 vial NEB RTQ4HP PRN 11/11/15 Budesonide/Formoterol Fumarate [Symbicort HFA 160-4.5 mcg Inhaler 6 gm] 2 puff IH Q12 11/11/15 Cholecalciferol (Vitamin D3) [Vitamin D3] 2,000 unit PO DAILY 11/11/15 Diazepam [Valium 5 mg Tablet] 5 mg PO Q8HP PRN 11/11/15 Ipratropium/Albuterol Sulfate [Combivent Respimat 4 gm Mdi] 1 puff IH Q4HP PRN 11/11/15 Magnesium Oxide [Magox] 400 mg PO BID 11/11/15 Potassium Chloride [Klor-Con M10] 10 meq PO BID 11/11/15 Furosemide [Lasix 40 mg Tablet] 40 mg PO QAM 04/01/18 Glipizide [Glucotrol 5 mg Tablet] 5 mg PO DAILY 04/01/18 Ipratropium/Albuterol Sulfate [Duoneb 3 ml Ampul] 3 ml NEB RTQ6HP PRN 04/01/18 Omeprazole 20 mg PO ACBRKFST 04/01/18 Diltiazem HCl [Cardizem 60 mg Tablet] 60 mg PO Q8 #90 tablet 04/08/18 Famotidine [Pepcid 20 mg Tablet] 20 mg PO Q12 #60 tablet 04/08/18 Glipizide [Glucotrol 5 mg Tablet] 5 mg PO BIDACBS #60 tablet 04/08/18 Insulin Detemir [Levemir] 10 unit SQ BID #2 vial 04/08/18 Mag Hydrox/Al Hydrox/Simeth [Aldroxicon I Liquid] 30 ml PO Q8PM #120 oral.susp 04/08/18 Prednisone 10 mg PO BID #20 tab.ds.pk 04/08/18 Prednisone [Deltasone 10 mg Tablet] 10 mg PO BID #20 tablet 04/08/18 History of Present Illness History of Present Illness: DAMIAN LOWRY is a 72 year old female [id number]-old female with history of COPD anxiety disorder admitted for respiratory distress. She was placed on the BiPAP in the emergency room. And the continue the BiPAP during the hospital stay. Patient was obtunded when she came to the ER. This morning patient is alert and awake communicating well without any problems. Patient was still on BiPAP. Acute events since the admission. She is afebrile. 04/04/2018 patient is alert and oriented communicating very well. Patient is on 6 L nasal cannula. Afebrile in the last 24 hours. She was using BiPAP at night. Patient says is helping her a lot. 04/05/2018-27 4 L oxygen via nasal cannula pulse ox is 99%. Patient is on family saying that they are using BiPAP during the daytime and also in the nighttime occasionally. Denies any specific complaints today. No acute events in the last 24 hours. 04/06/2018 72-year-old female with history of COPD CHF atrial fibrillation admitted for respiratory distress. She was admitted with acute on chronic respiratory failure with hypoxia and hypercapnia. She was placed on BiPAP. Pulmonary consult was done Dr. Galeano's recommendation is she needs to be on AVAPS because patient is unable to tolerate BiPAP. Today nurse called me and told me patient has atrial fibrillation with heart rate is around 160. She was given Cardizem p.o. once and Cardizem was increased to 60 mg 3 times daily. I am also going to put her on Cardizem . 30 mg IV every 6 as needed. For cardiology consult and echocardiogram. Patient complaining of irritation and discomfort in the throat requesting GI cocktail. Patient has a barium swallow was done mild laryngeal penetration without aspiration. 04/07/2018-patient states she is feeling much better today. She still on BiPAP. No acute events in the last 24 hours. Comfortably in the bed watching TV. Communicating with me very well. Alert and awake. She was started on a Cardizem drip yesterday for A. fib. Cardiology consult was done. Be appreciated. She had a pulmonary function test was done yesterday. Shows severe obstructive ventilatory defect. 04/08/2018 patient is doing much better today patient is on 2 L nasal cannula comfortably sitting in the bed no acute events in the last 24 hours the pulmonary consult was done she is going to go home on BiPAP machine in the atrial fibrillation resolved now is in sinus rhythm. Patient is expressing desire to go home today. Physical Exam Vital Signs: Temp Pulse Resp BP Pulse Ox 98.4 F 77 17 107/70 97 04/08/18 10:58 04/08/18 10:58 04/08/18 10:58 04/08/18 10:58 04/08/18 10:58 General appearance: PRESENT: no acute distress Head exam: PRESENT: atraumatic Eye exam: PRESENT: PERRLA Mouth exam: PRESENT: dry mucosa Teeth exam: PRESENT: poor dentation Neck exam: ABSENT: carotid bruit, JVD, lymphadenopathy, thyromegaly Respiratory exam: PRESENT: decreased breath sounds Cardiovascular exam: PRESENT: tachycardia GI/Abdominal exam: PRESENT: normal bowel sounds, soft. ABSENT: distended, guarding, mass, organolmegaly, rebound, tenderness Neurological exam: PRESENT: alert, awake, oriented to person, oriented to place, oriented to time, oriented to situation, CN II-XII grossly intact. ABSENT: motor sensory deficit Psychiatric exam: PRESENT: appropriate affect, normal mood. ABSENT: homicidal ideation, suicidal ideation Results Laboratory Results: 04/07/18 12:15 1218 12:15 18 03/31/18 21:12 21:12 Creatine Kinase < 20 L CK-MB (CK-2) 0.88 Troponin I 0.015 NT-Pro-B Natriuret Pep 80 Impressions: Chest CT 04/01/18 00:00 IMPRESSION: Obstructive lung disease, similar compared to CT exam from 12/28/2011 Modified Barium Swallow 04/06/18 00:00 IMPRESSION: TRACE LARYNGEAL PENETRATION WITH THIN BARIUM, WITHOUT ASPIRATION.PLEASE SEE SPEECH PATHOLOGIST REPORT FOR OTHER FINDINGS AND RECOMMENDATIONS. Qualifiers - * PATIENT BEING DISCHARGED WITH ANY OF THE FOLLOWING DIAGNOSIS: No VTE patient discharged on overlapping Therapy?: Yes
== END 2018-04-08 11:45 | disposition home or self-care (01) | DRG 189 ==
LOC: ER 20:55 → EH 23:25 → 3S 04-01 01:35
PROVIDERS: ADMIT Internal Medicine; ATTEND Internal Medicine
PROC: 5A09557 Assistance with Respiratory Ventilation, Greater than 96 Consecutive Hours, Continuous Positive Airway Pressure (ICD-10-PCS; principal; 2018-03-31)
PROC: 3E0F73Z Introduction of Anti-inflammatory into Respiratory Tract, Via Natural or Artificial Opening (ICD-10-PCS; 2018-03-31)
PROC: 3E02340 Introduction of Influenza Vaccine into Muscle, Percutaneous Approach (ICD-10-PCS; 2018-04-01)
DX: J96.21 Acute and chronic respiratory failure with hypoxia (principal); J18.1 Lobar pneumonia, unspecified organism; J44.0 Chronic obstructive pulmonary disease with (acute) lower respiratory infection; J96.22 Acute and chronic respiratory failure with hypercapnia; J43.2 Centrilobular emphysema; I50.9 Heart failure, unspecified; I48.91 Unspecified atrial fibrillation; F41.9 Anxiety disorder, unspecified; E09.9 Drug or chemical induced diabetes mellitus without complications; T38.0X5A Adverse effect of glucocorticoids and synthetic analogues, initial encounter; Y92.9 Unspecified place or not applicable; K21.9 Gastro-esophageal reflux disease without esophagitis; M19.90 Unspecified osteoarthritis, unspecified site; J20.9 Acute bronchitis, unspecified; L30.9 Dermatitis, unspecified; E66.9 Obesity, unspecified; Z96.652 Presence of left artificial knee joint; I11.0 Hypertensive heart disease with heart failure; Z79.899 Other long term (current) drug therapy; Z90.710 Acquired absence of both cervix and uterus; Z87.891 Personal history of nicotine dependence; Z23 Encounter for immunization; Z99.81 Dependence on supplemental oxygen
CPT/HCPCS: 36415; 36600; 51702; 71045; 71250; 74230; 80048; 80053; 80069; 80202; 81001; 81332; 82140; 82550; 82553; 82803; 82962; 83036; 83605; 83735; 83880; 84484; 85025; 87040; 87070; 87205; 93005; 93010; 93306; 94640; 94660; 94667; 94668; 94799; 96365; 99291; G8996-GN; G8997-GN; G8998-GN; J0456; J0692; J1160; J1644; J1815; J2930; J3370; J3490; J7060; J7512; J7620

== ENCOUNTER 2018-04-25 13:09 | Inpatient (IN) | payer MEDICARE ==
[2018-04-25] MEDS ORDERED: ALBUTEROL SULFATE 0.083% NEB 2.5 MG/3 ML AMPUL NEB ONE (13:26)
[2018-04-25] MEDS ORDERED: IPRATROPIUM/ALBUTEROL 0.5-2.5 MG/3 ML AMPUL NEB ONE (13:26)
--- NOTE | 2018-04-25 13:27 | ER Document Report ---
ED Medical Screen (RME) - General Chief Complaint: Respiratory Distress Stated Complaint: SHORTNESS OF BREATH Time Seen by Provider: 04/25/18 13:25 TRAVEL OUTSIDE OF THE [place] IN LAST 30 DAYS: No - HPI Notes: 04/25/18 13:26 Patient is a 73-year-old female that presents to the emergency department for chief complaint of shortness of breath. Patient referred to the ER by Dr. Carrera for admission for COPD exacerbation. She is on 4 L nasal cannula oxygen at home and 40 mg of prednisone daily. She has had increased shortness of breath despite these therapies. She denies chest pain and fevers. ROS: GENERAL: Denies fever of chills CV: Denies chest pain PHYSICAL EXAMINATION: GENERAL: Well-appearing, well-nourished and in no acute distress. HEAD: Atraumatic, normocephalic. EYES: Pupils equal round extraocular movements intact, conjunctiva are normal. ENT: Nares patent NECK: Normal range of motion LUNGS: Very diminished lung sounds bilaterally Musculoskeletal: Normal range of motion NEUROLOGICAL: Normal speech, normal gait. PSYCH: Normal mood, normal affect. MDM: Patient seen and examined for rapid initial assessment. Vital signs reviewed. A comprehensive ED assessment and evaluation of the patient, analysis of test results and completion of the medical decision making process will be conducted by additional ED providers. - Related Data Allergies/Adverse Reactions: No Known Allergies Allergy (Verified 04/25/18 13:10) Past Medical History - Social History Chew tobacco use (# tins/day): No Frequency of alcohol use: None Drug Abuse: None - Past Medical History Cardiac Medical History: Denies: Hx Coronary Artery Disease, Hx Heart Attack, Hx Hypertension Pulmonary Medical History: Reports: Hx Asthma, Hx Bronchitis, Hx COPD, Hx Pneum onia Neurological Medical History: Denies: Hx Cerebrovascular Accident, Hx Seizures Renal/ Medical History: Denies: Hx Peritoneal Dialysis Musculoskeltal Medical History: Reports Hx Arthritis Skin Medical History: Reports Hx Eczema Traumatic Medical History: Denies: Hx Traumatic Brain Injury Infectious Medical History: Denies: Hx HIV Past Surgical History: Reports: Hx Hysterectomy - Immunizations Hx Diphtheria, Pertussis, Tetanus Vaccination: Yes Doctor's Discharge - Discharge Referrals: JAZZMINE VINCENT MD [Primary Care Provider] - Follow up as needed
[2018-04-25 14:04] LABS: ABSOLUTE EOSINOPHILS # (AUTO) 0.1 10^3/uL (0.0-0.6); ABSOLUTE LYMPHOCYTES (AUTO) 0.8 10^3/uL (0.5-4.7); ABSOLUTE MONOCYTES (AUTO) 0.7 10^3/uL (0.1-1.4); ABSOLUTE NEUT (AUTO) 6.2 10^3/uL (1.7-8.2); BASOPHILS % (AUTO) 0.6 % (0-2); EOSINOPHILS % (AUTO) 0.8 % (0-6); HEMATOCRIT 36.4 % (36.0-47.0); HEMOGLOBIN 12.2 g/dL (12.0-15.5); LYMPHOCYTES % (AUTO) 10.6 % (13-45); MEAN CORPUSCULAR HGB CONC 33.5 g/dL (32.0-36.0); MEAN CORPUSCULAR VOLUME 93 fl (80-97); MONOCYTES % (AUTO) 9.4 % (3-13); PLATELET COUNT 168 10^3/uL (150-450); RED BLOOD COUNT 3.93 10^6/uL (3.72-5.28); RED CELL DISTRIBUTION WIDTH 15.8 % (11.5-14.0); SEGMENTED NEUTROPHILS % (AUTO) 78.6 % (42-78); TOTAL CELLS COUNTED % (AUTO) 100 %; WHITE BLOOD COUNT 7.9 10^3/uL (4.0-10.5)
[2018-04-25 14:07] LABS: ARTERIAL BLOOD BASE EXCESS 18.1 mmol/L; ARTERIAL BLOOD H2CO3 2.23 mmol/L (1.05-1.35); ARTERIAL BLOOD HCO3 46.4 mmol/L (20-24); ARTERIAL BLOOD O2 SATURATION 96.6 % (94-98); ARTERIAL BLOOD PH 7.42 (7.35-7.45); ARTERIAL BLOOD PO2 90.2 mmHg (80-100); ARTERIAL BLOOD TOTAL CO2 48.7 mmol/L (21-25)
[2018-04-25 14:09] LABS: ARTERIAL BLOOD FIO2 4L; ARTERIAL BLOOD PCO2 74.1 mmHg (35-45)
[2018-04-25 14:26] LABS: BLOOD UREA NITROGEN 16 mg/dL (7-20); CALCIUM 9.9 mg/dL (8.4-10.2); CHLORIDE 93 mmol/L (98-107); GLUCOSE 163 mg/dL (75-110); POTASSIUM 3.8 mmol/L (3.6-5.0)
[2018-04-25] MEDS ORDERED: METHYLPREDNISOLONE INJ 125 MG/2 ML SDV IV ONE (14:29)
[2018-04-25] MEDS ORDERED: CEFTRIAXONE INJ 1000 MG VIAL IV ONE (14:30)
--- NOTE | 2018-04-25 14:34 | ER Document Report ---
ED Respiratory Problem - General Chief Complaint: Respiratory Distress Stated Complaint: SHORTNESS OF BREATH Time Seen by Provider: 04/25/18 13:25 Notes: 73-year-old female patient history of COPD and respiratory failure. Recent admission to the hospital for hypercarbic respiratory failure here with increased somnolence and difficulty breathing. Was seen by primary care doctor today. Was sent to the hospital for admission. Patient has some tightness in the chest and feeling like she is increasingly sleepy. Has a CPAP machine at home that works but she has not been using it. Was recently started on some Lasix and has been urinating frequently as well. TRAVEL OUTSIDE OF THE [place] IN LAST 30 DAYS: No - HPI Patient complains to provider of: CHF, COPD Duration: Continuous Severity: Mild Pain Level: 1 Context: Hx CHF, Hx COPD Short of Breath: Moderate Chest pain/discomfort: Heaviness Cough: Nonproductive Sputum amount: Scant Associated symptoms: Chest pain/discomfort, Short of breath Similar symptoms previously: Yes Recently seen / treated by doctor: Yes - Related Data Allergies/Adverse Reactions: No Known Allergies Allergy (Verified 04/25/18 13:10) Past Medical History - General Information source: Patient, Relative - Social History Smoking Status: Former Smoker Chew tobacco use (# tins/day): No Frequency of alcohol use: None Drug Abuse: None Lives with: Family Family History: Reviewed & Not Pertinent Patient has suicidal ideation: No Patient has homicidal ideation: No - Past Medical History Cardiac Medical History: Denies: Hx Coronary Artery Disease, Hx Heart Attack, Hx Hypertension Pulmonary Medical History: Reports: Hx Asthma, Hx Bronchitis, Hx COPD, Hx Pneumonia Neurological Medical History: Denies: Hx Cerebrovascular Accident, Hx Seizures Renal/ Medical History: Denies: Hx Peritoneal Dialysis Musculoskeletal Medical History: Reports Hx Arthritis Skin Medical History: Reports Hx Eczema Traumatic Medical History: Denies: Hx Traumatic Brain Injury Infectious Medical History: Denies: Hx HIV Past Surgical History: Reports: Hx Hysterectomy - Immunizations Hx Diphtheria, Pertussis, Tetanus Vaccination: Yes Hx Pneumococcal Vaccination: 02/26/14 Review of Systems - Review of Systems Notes: Constitutional: denies: Chills, Diaphoresis, Fever, Malaise, Weakness EENT: denies: Eye discharge, Blurred vision, Tearing, Double vision, Nose congestion, Nose discharge, Throat swelling, Mouth pain Cardiovascular: denies: Palpitations, Heart racing, Orthopnea, Dyspnea, Chest pain Respiratory: Complains of increased shortness of breath, wheezing, somnolent Gastrointestinal: denies: Abdominal pain, Diarrhea, Nausea, Vomiting, Black stools, bright red blood in stool Genitourinary: denies: Burning, Dysuria, Discharge, Frequency, Flank pain, Hematuria Musculoskeletal: denies: Joint pain, Joint swelling, Muscle pain, Muscle stiffness, back pain Hematologic/Lymphatic: denies: Anemia, Easy bleeding, Easy bruising, Blood clots Neurological/Psychological: denies: Confusion, Dementia, Depression, Loss of consciousness Skin: No lesions, no masses, no skin breakdown, no abscesses Physical Exam - Vital signs Vitals: Resp Pulse Ox 20 100 04/25/18 14:18 04/25/18 14:18 Interpretation: Normal - General General appearance: Appears well, Alert - HEENT Head: Normocephalic, Atraumatic Eyes: Normal Pupils: PERRL - Respiratory Respiratory status: Labored, Pursed lip breathing Chest status: Nontender Breath sounds: Decreased air movement, Wheezing Chest palpation: Normal - Cardiovascular Rhythm: Regular Heart sounds: Normal auscultation Murmur: No - Abdominal Inspection: Normal Distension: No distension Bowel sounds: Normal Tenderness: Nontender Organomegaly: No organomegaly - Back Back: Normal, Nontender - Extremities General upper extremity: Normal inspection, Nontender, Normal color, Normal ROM, Normal temperature General lower extremity: Normal inspection, Nontender, Edema, Normal color, Normal ROM, Normal temperature. No: Mary's sign - Neurological Neuro grossly intact: Yes Cognition: Normal Orientation: AAOx4 [place] Coma Scale Eye Opening: Spontaneous [place] Coma Scale Verbal: Oriented [place] Coma Scale Motor: Obeys Commands [place] Coma Scale Total: 15 Speech: Normal Motor strength normal: LUE, RUE, LLE, RLE Sensory: Normal - Psychological Associated symptoms: Normal affect, Normal mood - Skin Skin Temperature: Warm Skin Moisture: Dry Skin Color: Normal Course - Re-evaluation Re-evalutation: 04/25/18 14:33 Based on patient's prior history of hypercarbic respiratory failure we will start her on BiPAP as her PCO2 was in the 70s. Last time it was in the 90s. Patient has been intubated in the past. Patient's primary care doctor would like her admitted. He has signed out to the hospitalist service. Will contact hospitalist service shortly for admission. 04/25/18 15:53 Laboratory 04/25/18 04/25/18 04/25/18 13:36 13:36 13:36 WBC 7.9 RBC 3.93 Hgb 12.2 Hct 36.4 MCV 93 MCH 31.0 MCHC 33.5 RDW 15.8 H Plt Count 168 Seg Neutrophils % 78.6 H Lymphocytes % 10.6 L Monocytes % 9.4 Eosinophils % 0.8 Basophils % 0.6 Absolute Neutrophils 6.2 Absolute Lymphocytes 0.8 Absolute Monocytes 0.7 Absolute Eosinophils 0.1 Absolute Basophils 0.0 Carbonic Acid HCO3/H2CO3 Ratio ABG pH ABG pCO2 ABG pO2 ABG HCO3 ABG Total CO2 ABG O2 Saturation ABG Base Excess FiO2 Sodium 143.0 Potassium 3.8 Chloride 93 L Carbon Dioxide 47 H* Anion Gap 3 L BUN 16 Creatinine 0.53 Est GFR ( Amer) > 60 Est GFR (Non-Af Amer) > 60 Glucose 163 H Calcium 9.9 Troponin I < 0.012 Urine Color Urine Appearance Urine pH Ur Specific [place] Urine Protein Urine Glucose (UA) Urine Ketones Urine Blood Urine Nitrite Urine Bilirubin Urine Urobilinogen Ur Leukocyte Esterase Urine WBC (Auto) Urine RBC (Auto) Squamous Epi Cells Auto Urine Mucus (Auto) Urine Ascorbic Acid 04/25/18 04/25/18 13:54 15:06 WBC RBC Hgb Hct MCV MCH MCHC RDW Plt Count Seg Neutrophils % Lymphocytes % Monocytes % Eosinophils % Basophils % Absolute Neutrophils Absolute Lymphocytes Absolute Monocytes Absolute Eosinophils Absolute Basophils Carbonic Acid 2.23 H HCO3/H2CO3 Ratio 20:1 ABG pH 7.42 ABG pCO2 74.1 H* ABG pO2 90.2 ABG HCO3 46.4 H ABG Total CO2 48.7 H ABG O2 Saturation 96.6 ABG Base Excess 18.1 FiO2 4L Sodium Potassium Chloride Carbon Dioxide Anion Gap BUN Creatinine Est GFR ( Amer) Est GFR (Non-Af Amer) Glucose Calcium Troponin I Urine Color YELLOW Urine Appearance CLEAR Urine pH 6.0 Ur Specific [place] 1.011 Urine Protein NEGATIVE Urine Glucose (UA) NEGATIVE Urine Ketones NEGATIVE Urine Blood SMALL H Urine Nitrite NEGATIVE Urine Bilirubin NEGATIVE Urine Urobilinogen NEGATIVE Ur Leukocyte Esterase NEGATIVE Urine WBC (Auto) 3 Urine RBC (Auto) 17 Squamous Epi Cells Auto <1 Urine Mucus (Auto) RARE Urine Ascorbic Acid NEGATIVE Chest X-Ray 04/25/18 00:00 IMPRESSION: COPD. NO ACUTE RADIOGRAPHIC FINDING IN THE CHEST. - Vital Signs Vital signs: Temp Pulse Resp BP Pulse Ox 20 100 04/25/18 14:18 04/25/18 14:18 - Laboratory Result Diagrams: 04/25/18 13:36 04/25/18 13:36 Laboratory results interpreted by me: 04/25/18 04/25/18 04/25/18 13:36 13:36 13:54 RDW 15.8 H Seg Neutrophils % 78.6 H Lymphocytes % 10.6 L Carbonic Acid 2.23 H ABG pCO2 74.1 H* ABG HCO3 46.4 H ABG Total CO2 48.7 H Chloride 93 L Carbon Dioxide 47 H* Anion Gap 3 L Glucose 163 H Urine Blood 04/25/18 15:06 RDW Seg Neutrophils % Lymphocytes % Carbonic Acid ABG pCO2 ABG HCO3 ABG Total CO2 Chloride Carbon Dioxide Anion Gap Glucose Urine Blood SMALL H Discharge - Discharge Clinical Impression: Acute respiratory failure with hypoxia and hypercarbia Condition: Good Disposition: ADMITTED INPATIENT Admitting Provider: Hospitalist - [facility] Admitted: Telemetry
[2018-04-25 14:35] LABS: ANION GAP 3 (5-19)
[2018-04-25 14:36] LABS: CARBON DIOXIDE 47 mmol/L (22-30)
--- NOTE | 2018-04-25 15:17 | RADIOLOGY REPORT (SQ) ---
EXAM DESCRIPTION: CHEST 2 VIEWS COMPLETED DATE/TIME: 04/25/2018 2:38 pm REASON FOR STUDY: short of breath congestion COMPARISON: 03/31/2018. NUMBER OF VIEWS: Two view. TECHNIQUE: Frontal and lateral radiographic views of the chest acquired. LIMITATIONS: None. FINDINGS: LUNGS AND PLEURA: Chronic interstitial changes. No focal infiltrates, masses or pneumotho rax. No pleural effusion. Attenuated blood vessels and flattened chuck-diaphragms. MEDIASTINUM AND HILAR STRUCTURES: No masses. No contour abnormalities. HEART AND VASCULAR STRUCTURES: Heart normal in size and contour. No evidence for failure. BONES: No acute findings. HARDWARE: None in the chest. OTHER: No other significant finding. IMPRESSION: COPD. NO ACUTE RADIOGRAPHIC FINDING IN THE CHEST. TECHNICAL DOCUMENTATION: JOB ID: [id number] [employer]- All Rights Reserved Reading location - IP/workstation name: [email or web address]
[2018-04-25 15:26] LABS: APPEARANCE,URINE CLEAR; BILIRUBIN,URINE NEGATIVE (NEGATIVE); COLOR,URINE YELLOW; GLUCOSE, URINE NEGATIVE (NEGATIVE); KETONES,URINE NEGATIVE (NEGATIVE); LEUKOCYTE ESTERASE,URINE NEGATIVE (NEGATIVE); NITRITE,URINE NEGATIVE (NEGATIVE); PROTEIN,URINE NEGATIVE (NEGATIVE); URINE SPECIFIC GRAVITY 1.011; UROBILINOGEN,URINE NEGATIVE mg/dL (<2.0)
--- NOTE | 2018-04-25 16:38 | EKG REPORT ---
SEVERITY:- ABNORMAL ECG - ATRIAL FLUTTER, A-RATE 312 LEFT ANTERIOR FASCICULAR BLOCK BORDERLINE T ABNORMALITIES, ANT-LAT LEADS : Confirmed by: Ngozi Zaidi MD 25-Apr-2018 16:38:02
[2018-04-25] MEDS ORDERED: ACETAMINOPHEN 325 MG TABLET PO PRN (16:54)
[2018-04-25] MEDS ORDERED: LEVALBUTEROL HCL NEB 1.25 MG/3 ML AMPUL NEB PRN (16:54)
[2018-04-25] MEDS ORDERED: ONDANSETRON 4 MG TAB.RAPDIS PO PRN (16:54)
[2018-04-25] MEDS ORDERED: GLUCAGON,HUMAN RECOMB 1 MG INJ IM PRN (17:05)
[2018-04-25] MEDS ORDERED: DEXTROSE 40% GEL 15 GM TUBE PO PRN ×2 (17:05)
[2018-04-25] MEDS ORDERED: DEXTROSE 50%-WATER 25 GM/50 ML DISP.SYRIN IV PRN ×2 (17:05)
[2018-04-25] MEDS: HYDROCODONE/ACETAMINOPHEN 7.5-325 MG TABLET PO PRN (17:37)
--- NOTE | 2018-04-25 17:37 | PDOC H&P ---
History of Present Illness Admission Date/PCP: 04/25/18 15:48 BRANNON BERNABE MD Patient complains of: Increased shortness of breath with productive cough History of Present Illness: DAMIAN LOWRY is a 73 year old female with a history of chronic obstructive pu lmonary disease. This will be her third admission since March 14. She has not been feeling well for the last several days. Since yesterday she began having increased shortness of breath. She had a productive cough today. She went to Dr. Bernabe's office and he told her to come to the emergency department for admission. Despite a productive cough of a small amount of greenish yellow sputum she denies fever or chills. She states that she felt warm. Her appetite has been off a little bit. She does use BiPAP at night at home. Typically, this sooner she begins receiving aggressive treatment, the quicker she gets over these episodes. Past Medical History Cardiac Medical History: Reports: Atrial Fibrillation - Atrial flutter, Congestive Heart Failure Denies: Coronary Artery Disease, Myocardial Infarction, Hypertension Pulmonary Medical History: Reports: Asthma, Bronchitis, Chronic Obstructive Pulmonary Disease (COPD), Pneumonia EENT Medical History: Reports: Cataracts Neurological Medical History: Denies: Hemorrhagic CVA, Ischemic CVA, Seizures Endocrine Medical History: Reports: Diabetes Mellitus Type 2 Denies: Hypothyroidism Renal/ Medical History: Denies: Chronic Kidney Disease, End Stage Renal Disease Malignancy Medical History: Reports: None GI Medical History: Reports: None Musculoskeltal Medical History: Reports: Arthritis Skin Medical History: Reports: Eczema Traumatic Medical History: Reports: None Denies: Traumatic Brain Injury Hematology: Denies: Anemia, Sickle Cell Disease Infectious Medical History: Reports: None Past Surgical History Past Surgical History: Reports: Cholecystectomy, Hysterectomy, Orthopedic Surgery - Left total knee arthroplasty, bilateral carpal tunnel syndrome Social History Information Source: Patient Lives with: Family Smoking Status: Former Smoker Frequency of Alcohol Use: None Hx Recreational Drug Use: No Drugs: None Hx Prescription Drug Abuse: No - Advance Directive Resuscitation Status: Full Code Surrogate healthcare decision maker:: Her decision maker is her daughter Bety and then her granddaughter Zeinab. They have inquired about completing a healthcare proxy while here. Family History Family History: CAD, DM Parental Family History Reviewed: Yes Children Family History Reviewed: Yes Sibling(s) Family History Reviewed.: Yes Medication/Allergy Home Medications: Aspirin [Ecotrin 81 mg EC Tablet] 81 mg PO DAILY 04/25/18 Budesonide/Formoterol Fumarate [Symbicort Hfa 160-4.5 Mcg Inhaler 6 gm] 2 puff IH Q12 04/25/18 Cholecalciferol (Vitamin D3) [Vitamin D3 2000 unit Tablet] 2,000 unit PO QHS 04/25/18 Diazepam [Valium 5 mg Tablet] 5 mg PO Q8HP PRN 04/25/18 Diltiazem HCl [Cardizem 60 mg Tablet] 60 mg PO Q8 04/25/18 Famotidine [Pepcid 20 mg Tablet] 20 mg PO Q12 04/25/18 Fluticasone Propionate [Flonase Nasal [place] 50 Mcg/[place] 16 gm] 1 spray NASL Q12 04/25/18 Furosemide [Lasix 40 mg Tablet] 40 mg PO BID@0700,1200 04/25/18 Glipizide [Glocotrol 5 Mg Tablet] 5 mg PO QAM 04/25/18 Hydrocodone/Acetaminophen [[place] 7.5-325 Tablet] 1 each PO 5XDP PRN 04/25/18 Insulin Detemir [Levemir Insulin 300 Units/3 ml Insuln.pen] 10 unit SUBCUT Q12 04/25/18 Ipratropium/Albuterol Sulfate [Combivent Respimat 4 gm Mdi] 1 puff IH Q4HP PRN 04/25/18 Ipratropium/Albuterol Sulfate [Duoneb 3 ml Ampul] 3 ml NEB RTQ4HP PRN 04/25/18 Lidocaine/Maalox Compound 30 ml PO Q8HP PRN 04/25/18 Magnesium Oxide [Mag-Ox 400 mg Tablet] 400 mg PO BID 04/25/18 Potassium Chloride [Klor-Con 10 Meq Capsule ER] 10 meq PO Q12 04/25/18 Prednisone [Deltasone 10 mg Tablet] 10 mg PO BID 04/25/18 Allergies/Adverse Reactions: No Known Allergies Allergy (Verified 04/25/18 13:10) Review of Systems Constitutional: PRESENT: as per HPI Eyes: ABSENT: visual disturbances Ears: ABSENT: hearing changes Nose, Mouth, and Throat: ABSENT: headache(s), mouth pain Cardiovascular: PRESENT: edema. ABSENT: chest pain, orthropnea, palpitations Respiratory: PRESENT: cough, dyspnea, sputum Gastrointestinal: ABSENT: abdominal pain, coffee ground emesis, constipation, diarrhea, heartburn, nausea, vomiting Integumentary: ABSENT: lesions, pruritus Neurological: ABSENT: abnormal gait, confusion, focal weakness, tremor(s), vertigo Psychiatric: ABSENT: anxiety, depression Endocrine: ABSENT: cold intolerance, menstrual abnormalities Hematologic/Lymphatic: ABSENT: easy bleeding, lymphadenopathy Physical Exam Vital Signs: Temp Pulse Resp BP Pulse Ox 18 98 04/25/18 16:00 04/25/18 15:00 General appearance: PRESENT: cooperative, mild distress, well-developed Head exam: PRESENT: normocephalic Eye exam: PRESENT: conjunctiva pink, EOMI. ABSENT: scleral icterus Ear exam: PRESENT: normal external ear exam Mouth exam: PRESENT: moist, neck supple, tongue midline Neck exam: ABSENT: carotid bruit, JVD, lymphadenopathy Respiratory exam: PRESENT: clear to auscultation dorita, prolonged expiratory phas, symmetrical. ABSENT: crackles, rales, rhonchi, wheezes Cardiovascular exam: PRESENT: irregular rhythm GI/Abdominal exam: PRESENT: normal bowel sounds, soft. ABSENT: distended, tenderness Extremities exam: PRESENT: +1 edema. ABSENT: calf tenderness Musculoskeletal exam: PRESENT: normal inspection Neurological exam: PRESENT: alert, awake, oriented to person, oriented to place, oriented to time, oriented to situation, CN II-XII grossly intact Psychiatric exam: PRESENT: appropriate affect. ABSENT: agitated, anxious Focused psych exam: ABSENT: restlessness Skin exam: PRESENT: dry - Scaly skin, other - Very thin skin with ecchymosis Results Laboratory Results: 04/25/18 13:36 04/25/18 13:36 04/25/18 04/25/18 04/25/18 13:36 13:36 13:54 WBC 7.9 RBC 3.93 Hgb 12.2 Hct 36.4 MCV 93 MCH 31.0 MCHC 33.5 RDW 15.8 H Plt Count 168 Seg Neutrophils % 78.6 H Lymphocytes % 10.6 L Monocytes % 9.4 Eosinophils % 0.8 Basophils % 0.6 Absolute Neutrophils 6.2 Absolute Lymphocytes 0.8 Absolute Monocytes 0.7 Absolute Eosinophils 0.1 Absolute Basophils 0.0 Carbonic Acid 2.23 H HCO3/H2CO3 Ratio 20:1 ABG pH 7.42 ABG pCO2 74.1 H* ABG pO2 90.2 ABG HCO3 46.4 H ABG O2 Saturation 96.6 ABG Base Excess 18.1 FiO2 4L Sodium 143.0 Potassium 3.8 Chloride 93 L Carbon Dioxide 47 H* Anion Gap 3 L BUN 16 Creatinine 0.53 Est GFR ( Amer) > 60 Est GFR (Non-Af Amer) > 60 Glucose 163 H Lactic Acid Calcium 9.9 Ammonia Urine Color Urine Appearance Urine pH Ur Specific [place] Urine Protein Urine Glucose (UA) Urine Ketones Urine Blood Urine Nitrite Ur Leukocyte Esterase Urine WBC (Auto) Urine RBC (Auto) 04/25/18 04/25/18 04/25/18 15:06 15:34 15:34 WBC RBC Hgb Hct MCV MCH MCHC RDW Plt Count Seg Neutrophils % Lymphocytes % Monocytes % Eosinophils % Basophils % Absolute Neutrophils Absolute Lymphocytes Absolute Monocytes Absolute Eosinophils Absolute Basophils Carbonic Acid HCO3/H2CO3 Ratio ABG pH ABG pCO2 ABG pO2 ABG HCO3 ABG O2 Saturation ABG Base Excess FiO2 Sodium Potassium Chloride Carbon Dioxide Anion Gap BUN Creatinine Est GFR ( Amer) Est GFR (Non-Af Amer) Glucose Lactic Acid 1.5 Calcium Ammonia 45.5 H Urine Color YELLOW Urine Appearance CLEAR Urine pH 6.0 Ur Specific [place] 1.011 Urine Protein NEGATIVE Urine Glucose (UA) NEGATIVE Urine Ketones NEGATIVE Urine Blood SMALL H Urine Nitrite NEGATIVE Ur Leukocyte Esterase NEGATIVE Urine WBC (Auto) 3 Urine RBC (Auto) 17 04/25/18 13:36 Troponin I < 0.012 Impressions: Chest X-Ray 04/25/18 00:00 IMPRESSION: COPD. NO ACUTE RADIOGRAPHIC FINDING IN THE CHEST. Assessment & Plan - Diagnosis (1) Acute respiratory failure with hypoxia and hypercapnia Is this a current diagnosis for this admission?: Yes Plan: The patient already uses BiPAP at home. She will be on BiPAP during the day until she improves. She will need BiPAP at night. Continue oxygen supplementation. (2) Acute chronic obstructive pulmonary disease with respiratory failure Is this a current diagnosis for this admission?: Yes Plan: The patient uses Symbicort at home as well as nebulizer treatments. I will place her on duo nebs every 6 with Xopenex available if needed. She will also b e on budesonide nebulizers every 12 hours. She will be on intravenous Solu- Medrol in lieu of her prednisone. She will also receive antibiotics for her bronchitis. (3) Acute bronchitis Qualifiers: Bronchitis organism: unspecified organism Qualified Code(s): J20.9 - Acute bronchitis, unspecified Is this a current diagnosis for this admission?: Yes Plan: I placed her on Rocephin and azithromycin (4) Atrial flutter Qualifiers: Atrial flutter type: typical Qualified Code(s): I48.3 - Typical atrial f lutter Is this a current diagnosis for this admission?: Yes Plan: Continue diltiazem. She is not listed as being anticoagulated. We will need to discuss with the patient further. (5) Diabetes Qualifiers: Diabetes mellitus type: type 2 Diabetes mellitus group home insulin use: with termite exterminator helper use Diabetes mellitus complication status: without complication Qualified Code(s): E11.9 - Type 2 diabetes mellitus without complications; Z79.4 - lobsterman (current) use of insulin Is this a current diagnosis for this admission?: Yes Plan: Continue current medications. I have added a Humalog sliding scale as well. - Time Time Spent: 50 to 70 Minutes Medications reviewed and adjusted accordingly: Yes Anticipated discharge: Home
[2018-04-25] MEDS: MAGNESIUM OXIDE 400 MG TABLET PO SCH (18:54)
[2018-04-25] MEDS: BUDESONIDE NEB 0.5 MG/2 ML AMPUL NEB SCH (20:04)
[2018-04-25] MEDS: IPRATROPIUM/ALBUTEROL 0.5-2.5 MG/3 ML AMPUL NEB SCH (20:04)
[2018-04-25] MEDS: FAMOTIDINE 20 MG TABLET PO SCH (23:09)
[2018-04-25] MEDS: DILTIAZEM HCL 60 MG TABLET PO SCH (23:09)
[2018-04-25] MEDS: METHYLPREDNISOLONE INJ 125 MG/2 ML SDV IV SCH (23:09)
[2018-04-25] MEDS: FLUTICASONE NASAL SPRAY 50 MCG/SPRY 120 SPRAY/16 GM NASL SCH (23:11)
[2018-04-25] MEDS: INSULIN DETEMIR 100 UNIT/ML 3 ML PEN SUBCUT SCH (23:12)
[2018-04-25] MEDS: AZITHROMYCIN 500 MG in DEXTROSE 5%-WATER 250 ML IV SCH (23:14)
[2018-04-25] MEDS: INSULIN LISPRO 100 UNIT/ML 3 ML VIAL SUBCUT PRN (23:30)
[2018-04-26] MEDS: IPRATROPIUM/ALBUTEROL 0.5-2.5 MG/3 ML AMPUL NEB SCH ×6 (02:29→23:58)
[2018-04-26] MEDS: DILTIAZEM HCL 60 MG TABLET PO SCH ×3 (05:25→22:36)
[2018-04-26] MEDS: METHYLPREDNISOLONE INJ 125 MG/2 ML SDV IV SCH ×3 (05:26→22:38)
[2018-04-26 05:54] LABS: ABSOLUTE LYMPHOCYTES (AUTO) 0.7 10^3/uL (0.5-4.7); ABSOLUTE MONOCYTES (AUTO) 0.2 10^3/uL (0.1-1.4); ABSOLUTE NEUT (AUTO) 4.9 10^3/uL (1.7-8.2); BASOPHILS % (AUTO) 0.1 % (0-2); HEMATOCRIT 32.4 % (36.0-47.0); MEAN CORPUSCULAR VOLUME 91 fl (80-97); MONOCYTES % (AUTO) 3.2 % (3-13); PLATELET COUNT 155 10^3/uL (150-450); RED BLOOD COUNT 3.55 10^6/uL (3.72-5.28); RED CELL DISTRIBUTION WIDTH 15.7 % (11.5-14.0); SEGMENTED NEUTROPHILS % (AUTO) 84.7 % (42-78); TOTAL CELLS COUNTED % (AUTO) 100 %; WHITE BLOOD COUNT 5.8 10^3/uL (4.0-10.5)
[2018-04-26 06:21] LABS: BLOOD UREA NITROGEN 21 mg/dL (7-20); CALCIUM 9.3 mg/dL (8.4-10.2); CHLORIDE 91 mmol/L (98-107); GLUCOSE 234 mg/dL (75-110); POTASSIUM 3.9 mmol/L (3.6-5.0); SODIUM 139.1 mmol/L (137-145)
[2018-04-26 06:25] LABS: ARTERIAL BLOOD BASE EXCESS 12.2 mmol/L; ARTERIAL BLOOD H2CO3 2.17 mmol/L (1.05-1.35); ARTERIAL BLOOD HCO3 40.2 mmol/L (20-24); ARTERIAL BLOOD O2 SATURATION 98.6 % (94-98); ARTERIAL BLOOD PH 7.36 (7.35-7.45); ARTERIAL BLOOD PO2 140.6 mmHg (80-100); ARTERIAL BLOOD TOTAL CO2 42.5 mmol/L (21-25)
[2018-04-26 06:26] LABS: ARTERIAL BLOOD FIO2 50%
[2018-04-26 06:27] LABS: ARTERIAL BLOOD PCO2 72.2 mmHg (35-45)
[2018-04-26 06:38] LABS: ANION GAP 6 (5-19)
[2018-04-26 07:15] LABS: CARBON DIOXIDE 42 mmol/L (22-30)
[2018-04-26] MEDS: BUDESONIDE NEB 0.5 MG/2 ML AMPUL NEB SCH ×2 (08:45→20:01)
[2018-04-26] MEDS: INSULIN DETEMIR 100 UNIT/ML 3 ML PEN SUBCUT SCH ×2 (09:18→22:34)
[2018-04-26] MEDS: ENOXAPARIN SODIUM INJ 40 MG/0.4 ML DISP.SYRIN SUBCUT SCH (09:19)
[2018-04-26] MEDS: FAMOTIDINE 20 MG TABLET PO SCH ×2 (09:20→22:36)
[2018-04-26] MEDS: MAGNESIUM OXIDE 400 MG TABLET PO SCH ×2 (09:20→18:10)
[2018-04-26] MEDS: FLUTICASONE NASAL SPRAY 50 MCG/SPRY 120 SPRAY/16 GM NASL SCH ×2 (09:20→22:36)
[2018-04-26] MEDS: FUROSEMIDE 40 MG TABLET PO SCH ×2 (09:20→15:52)
[2018-04-26] MEDS: GLIPIZIDE 5 MG TABLET PO SCH (09:20)
[2018-04-26] MEDS: DIAZEPAM 5 MG TABLET PO PRN ×2 (09:21→18:10)
[2018-04-26] MEDS: ASPIRIN 81 MG TABLET, ENT COATED PO SCH (09:21)
[2018-04-26] MEDS: CEFTRIAXONE 1 GM/D5W RTU 1 GM/50 ML RTUPB IV SCH (09:27)
[2018-04-26] MEDS ORDERED: CEFTRIAXONE SODIUM 1,000 MG in DEXTROSE 5%-WATER 50 ML IV SCH (10:00)
[2018-04-26] MEDS ORDERED: CEFTRIAXONE 1 GM/D5W RTU 1 GM/50 ML RTUPB IV SCH (10:00)
[2018-04-26] MEDS ORDERED: IPRATROPIUM/ALBUTEROL 0.5-2.5 MG/3 ML AMPUL NEB SCH (14:00)
--- NOTE | 2018-04-26 14:24 | PDOC PROGRESS REPORT ---
Subjective Progress Note for:: 04/26/18 Subjective:: The patient did have a bit of a panic attack earlier today. This upset her daughter. The patient in fact is stable. Reason For Visit: EXACERBATION COPD CHRONIC ATRIAL FIBRILLATION Physical Exam Vital Signs: Temp Pulse Resp BP Pulse Ox 97.9 F 102 H 22 H 142/72 H 92 04/26/18 13:09 04/26/18 13:09 04/26/18 13:09 04/26/18 13:09 04/26/18 13:09 Intake & Output 04/25/18 04/26/18 04/27/18 06:59 06:59 06:59 Intake Total 325 250 Balance 325 250 Weight 86.7 kg General appearance: PRESENT: no acute distress, obese - BMI 33.9 Head exam: PRESENT: normocephalic Respiratory exam: PRESENT: clear to auscultation dorita, prolonged expiratory phas. ABSENT: rales, rhonchi, stridor, wheezes Cardiovascular exam: PRESENT: irregular rhythm, +S1, +S2 GI/Abdominal exam: PRESENT: normal bowel sounds, soft. ABSENT: distended, tenderness Extremities exam: PRESENT: pedal edema Neurological exam: PRESENT: alert, awake, oriented to person, oriented to place, oriented to time, oriented to situation, CN II-XII grossly intact Psychiatric exam: PRESENT: anxious, appropriate affect. ABSENT: agitated Focused psych exam: ABSENT: restlessness Results Laboratory Results: 04/26/18 05:36 04/26/18 05:36 04/25/18 04/25/18 04/25/18 13:36 15:06 15:34 WBC RBC Hgb Hct MCV MCH MCHC RDW Plt Count Seg Neutrophils % Lymphocytes % Monocytes % Eosinophils % Basophils % Absolute Neutrophils Absolute Lymphocytes Absolute Monocytes Absolute Eosinophils Absolute Basophils Carbonic Acid HCO3/H2CO3 Ratio ABG pH ABG pCO2 ABG pO2 ABG HCO3 ABG O2 Saturation ABG Base Excess FiO2 Sodium 143.0 Potassium 3.8 Chloride 93 L Carbon Dioxide 47 H* Anion Gap 3 L BUN 16 Creatinine 0.53 Est GFR ( Amer) > 60 Est GFR (Non-Af Amer) > 60 Glucose 163 H Lactic Acid Calcium 9.9 Magnesium Ammonia 45.5 H Urine Color YELLOW Urine Appearance CLEAR Urine pH 6.0 Ur Specific [place] 1.011 Urine Protein NEGATIVE Urine Glucose (UA) NEGATIVE Urine Ketones NEGATIVE Urine Blood SMALL H Urine Nitrite NEGATIVE Ur Leukocyte Esterase NEGATIVE Urine WBC (Auto) 3 Urine RBC (Auto) 17 04/25/18 04/26/18 04/26/18 15:34 05:36 05:36 WBC 5.8 RBC 3.55 L Hgb 11.0 L Hct 32.4 L MCV 91 MCH 31.0 MCHC 34.0 RDW 15.7 H Plt Count 155 Seg Neutrophils % 84.7 H Lymphocytes % 12.0 L Monocytes % 3.2 Eosinophils % 0.0 Basophils % 0.1 Absolute Neutrophils 4.9 Absolute Lymphocytes 0.7 Absolute Monocytes 0.2 Absolute Eosinophils 0.0 Absolute Basophils 0.0 Carbonic Acid HCO3/H2CO3 Ratio ABG pH ABG pCO2 ABG pO2 ABG HCO3 ABG O2 Saturation ABG Base Excess FiO2 Sodium 139.1 Potassium 3.9 Chloride 91 L Carbon Dioxide 42 H* Anion Gap 6 BUN 21 H Creatinine 0.55 Est GFR ( Amer) > 60 Est GFR (Non-Af Amer) > 60 Glucose 234 H Lactic Acid 1.5 Calcium 9.3 Magnesium 2.1 Ammonia Urine Color Urine Appearance Urine pH Ur Specific [place] Urine Protein Urine Glucose (UA) Urine Ketones Urine Blood Urine Nitrite Ur Leukocyte Esterase Urine WBC (Auto) Urine RBC (Auto) 04/26/18 04/26/18 05:36 06:01 WBC RBC Hgb Hct MCV MCH MCHC RDW Plt Count Seg Neutrophils % Lymphocytes % Monocytes % Eosinophils % Basophils % Absolute Neutrophils Absolute Lymphocytes Absolute Monocytes Absolute Eosinophils Absolute Basophils Carbonic Acid 2.17 H HCO3/H2CO3 Ratio 18:1 ABG pH 7.36 ABG pCO2 72.2 H* ABG pO2 140.6 H ABG HCO3 40.2 H ABG O2 Saturation 98.6 H ABG Base Excess 12.2 FiO2 50% Sodium Potassium Chloride Carbon Dioxide Anion Gap BUN Creatinine Est GFR ( Amer) Est GFR (Non-Af Amer) Glucose Lactic Acid Calcium Magnesium Ammonia 27.7 Urine Color Urine Appearance Urine pH Ur Specific [place] Urine Protein Urine Glucose (UA) Urine Ketones Urine Blood Urine Nitrite Ur Leukocyte Esterase Urine WBC (Auto) Urine RBC (Auto) 04/25/18 13:36 Troponin I < 0.012 Impressions: Chest X-Ray 04/25/18 00:00 IMPRESSION: COPD. NO ACUTE RADIOGRAPHIC FINDING IN THE CHEST. Assessment & Plan - Diagnosis (1) Acute respiratory failure with hypoxia and hypercapnia Is this a current diagnosis for this admission?: Yes Plan: The patient's family did bring in her own BiPAP machine. I have placed an order for her to use her machine. We did discuss the fact that she should use her machine during the day and not just at night. She was still hypercarbic this morning. She is still most likely above her baseline chronically elevated PCO2 (2) Acute chronic obstructive pulmonary disease with respiratory failure Is this a current diagnosis for this admission?: Yes Plan: With scheduled nebulizers every 6 hours the patient does not feel adequately treated. I will increase the scheduled nebulizers to q. 4-hour duo nebs with as needed Xopenex available. She will continue on budesonide as well as systemic steroids. (3) Acute bronchitis Qualifiers: Bronchitis organism: unspecified organism Qualified Code(s): J20.9 - Acute bronchitis, unspecified Is this a current diagnosis for this admission?: Yes Plan: We discussed the fact that the discolored sputum seen in Dr. Carrera's office (green) likely reflects an acute bronchitis. Complete antibiotics as ordered. (4) Atrial flutter Qualifiers: Atrial flutter type: typical Qualified Code(s): I48.3 - Typical atrial flutter Is this a current diagnosis for this admission?: Yes Plan: Chronic. Good rate control. 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 This is likely because of the steroids. I increased her Levemir. - Time Time Spent with patient: 25-34 minutes Medications reviewed and adjusted accordingly: Yes Anticipated discharge: Home - Plan Summary Plan Summary: Family was concerned with the patient's anxiety this morning. She usually takes diazepam each day. She did feel better after this morning's diazepam.
[2018-04-26] MEDS: HYDROCODONE/ACETAMINOPHEN 7.5-325 MG TABLET PO PRN (15:52)
[2018-04-26] MEDS: AZITHROMYCIN 500 MG in DEXTROSE 5%-WATER 250 ML IV SCH (22:45)
[2018-04-27] MEDS: DIAZEPAM 5 MG TABLET PO PRN ×3 (02:33→22:45)
[2018-04-27] MEDS: IPRATROPIUM/ALBUTEROL 0.5-2.5 MG/3 ML AMPUL NEB SCH ×6 (04:07→23:59)
[2018-04-27] MEDS: DILTIAZEM HCL 60 MG TABLET PO SCH ×3 (06:02→22:47)
[2018-04-27] MEDS: FUROSEMIDE 40 MG TABLET PO SCH ×2 (06:03→12:51)
[2018-04-27] MEDS: METHYLPREDNISOLONE INJ 125 MG/2 ML SDV IV SCH ×3 (06:03→22:44)
[2018-04-27] MEDS: BUDESONIDE NEB 0.5 MG/2 ML AMPUL NEB SCH ×2 (08:57→20:52)
[2018-04-27] MEDS: INSULIN LISPRO 100 UNIT/ML 3 ML VIAL SUBCUT PRN ×2 (09:00→15:08)
[2018-04-27] MEDS: FAMOTIDINE 20 MG TABLET PO SCH ×2 (09:17→22:46)
[2018-04-27] MEDS: MAGNESIUM OXIDE 400 MG TABLET PO SCH ×2 (09:17→18:59)
[2018-04-27] MEDS: ASPIRIN 81 MG TABLET, ENT COATED PO SCH (09:17)
[2018-04-27] MEDS: HYDROCODONE/ACETAMINOPHEN 7.5-325 MG TABLET PO PRN (09:18)
[2018-04-27] MEDS: ENOXAPARIN SODIUM INJ 40 MG/0.4 ML DISP.SYRIN SUBCUT SCH (09:18)
[2018-04-27] MEDS: FLUTICASONE NASAL SPRAY 50 MCG/SPRY 120 SPRAY/16 GM NASL SCH ×2 (09:20→22:49)
[2018-04-27] MEDS: INSULIN DETEMIR 100 UNIT/ML 3 ML PEN SUBCUT SCH ×3 (09:21→22:48)
[2018-04-27] MEDS: GUAIFENESIN 600 MG TABLET.SA PO SCH ×2 (09:23→22:46)
[2018-04-27] MEDS: GLIPIZIDE 5 MG TABLET PO SCH (09:24)
--- NOTE | 2018-04-27 09:24 | PDOC PROGRESS REPORT ---
Subjective Progress Note for:: 04/27/18 Subjective:: Patient states to being short of breath, dyspnea on exertion cough nonproductive denies palpitations does state to some chest heaviness no fever chills poor appetite no nausea vomiting. Reason For Visit: EXACERBATION COPD CHRONIC ATRIAL FIBRILLATION Physical Exam Vital Signs: Temp Pulse Resp BP Pulse Ox 97.9 F 89 24 H 129/64 H 96 04/27/18 04:00 04/27/18 07:00 04/27/18 04:00 04/27/18 04:00 04/27/18 04:00 Intake & Output 04/26/18 04/27/18 04/28/18 06:59 06:59 06:59 Intake Total 325 1098 Balance 325 1098 Weight 86.7 kg 85.5 kg General appearance: PRESENT: mild distress, obese Head exam: PRESENT: atraumatic, normocephalic Eye exam: PRESENT: conjunctiva pink, EOMI, PERRLA. ABSENT: scleral icterus Ear exam: PRESENT: normal external ear exam Mouth exam: PRESENT: moist, tongue midline Throat exam: PRESENT: post pharyngeal erythema Neck exam: PRESENT: full ROM. ABSENT: carotid bruit, JVD, lymphadenopathy, thyromegaly Respiratory exam: PRESENT: accessory muscle use, decreased breath sounds, wheezes Cardiovascular exam: PRESENT: irregular rhythm Pulses: PRESENT: normal dorsalis pedis pul, +2 pedal pulses bilateral Vascular exam: PRESENT: normal capillary refill GI/Abdominal exam: PRESENT: normal bowel sounds, soft. ABSENT: distended, guarding, mass, organolmegaly, rebound, tenderness Rectal exam: PRESENT: deferred Extremities exam: PRESENT: pedal edema Additional comments: But this is decreased to 1+ since seen on April 25. Neurological exam: PRESENT: alert, awake, oriented to person, oriented to place, oriented to time, oriented to situation, CN II-XII grossly intact. ABSENT: motor sensory deficit Psychiatric exam: PRESENT: anxious Skin exam: PRESENT: dry, intact, warm. ABSENT: cyanosis, rash Results Laboratory Results: 04/26/18 05:36 04/26/18 05:36 04/25/18 13:36 Troponin I < 0.012 Impressions: Chest X-Ray 04/25/18 00:00 IMPRESSION: COPD. NO ACUTE RADIOGRAPHIC FINDING IN THE CHEST. Assessment & Plan - Diagnosis (1) Acute respiratory failure with hypoxia and hypercapnia Is this a current diagnosis for this admission?: Yes Plan: We will add Mucinex 600 twice daily we will get an ABG chest x-ray may have to be on BiPAP again. Pulmonary consults been placed. (2) COPD (chronic obstructive pulmonary disease) with emphysema Qualifiers: Emphysema type: centrilobular Qualified Code(s): J43.2 - Centrilobular emphysema Is this a current diagnosis for this admission?: Yes (3) Atrial flutter Qualifiers: Atrial flutter type: typical Qualified Code(s): I48.3 - Typical atrial fl utter Is this a current diagnosis for this admission?: Yes Plan: Continue on the Cardizem p.o. we will get an EKG today consult Dr. Zaidi for assistance in management please (4) Diabetes Qualifiers: Diabetes mellitus type: type 2 Diabetes mellitus custodial insulin use: with joint terminal attack controller use Diabetes mellitus complication status: without complication Qualified Code(s): E11.9 - Type 2 diabetes mellitus without complications; Z79.4 - senior living (current) use of insulin Is this a current diagnosis for this admission?: Yes Plan: We will increase the Levemir as the blood sugars are ranging in the 2-300 range we will go to 20 units twice daily continue on the glipizide. - Time Time Spent with patient: 15-24 minutes Anticipated discharge: Home Within: Other - Inpatient Certification Medical Necessity: Failure to Improve With Outpatient Therapy, Need for IV Antibiotics Post Hospital Care: D/C Direct Marketing Manager Documentation
[2018-04-27] MEDS ORDERED: DEXTROSE 50%-WATER 25 GM/50 ML DISP.SYRIN IV PRN ×2 (09:25)
[2018-04-27] MEDS ORDERED: GLUCAGON,HUMAN RECOMB 1 MG INJ IM PRN (09:25)
[2018-04-27] MEDS ORDERED: DEXTROSE 40% GEL 15 GM TUBE PO PRN ×2 (09:25)
[2018-04-27 10:23] LABS: ARTERIAL BLOOD BASE EXCESS 18.8 mmol/L; ARTERIAL BLOOD H2CO3 2.12 mmol/L (1.05-1.35); ARTERIAL BLOOD HCO3 46.6 mmol/L (20-24); ARTERIAL BLOOD O2 SATURATION 95.9 % (94-98); ARTERIAL BLOOD PH 7.44 (7.35-7.45); ARTERIAL BLOOD PO2 81.2 mmHg (80-100); ARTERIAL BLOOD TOTAL CO2 48.8 mmol/L (21-25)
[2018-04-27 10:38] LABS: ARTERIAL BLOOD FIO2 40%
[2018-04-27 10:39] LABS: ARTERIAL BLOOD PCO2 70.4 mmHg (35-45)
[2018-04-27 10:44] LABS: ABSOLUTE LYMPHOCYTES (AUTO) 0.8 10^3/uL (0.5-4.7); ABSOLUTE MONOCYTES (AUTO) 0.4 10^3/uL (0.1-1.4); ABSOLUTE NEUT (AUTO) 9.4 10^3/uL (1.7-8.2); BASOPHILS % (AUTO) 0.1 % (0-2); LYMPHOCYTES % (AUTO) 7.6 % (13-45); MEAN CORPUSCULAR HEMOGLOBIN 30.7 pg (27.0-33.4); MEAN CORPUSCULAR HGB CONC 33.4 g/dL (32.0-36.0); MEAN CORPUSCULAR VOLUME 92 fl (80-97); MONOCYTES % (AUTO) 3.4 % (3-13); PLATELET COUNT 217 10^3/uL (150-450); RED BLOOD COUNT 3.91 10^6/uL (3.72-5.28); RED CELL DISTRIBUTION WIDTH 15.5 % (11.5-14.0); SEGMENTED NEUTROPHILS % (AUTO) 88.9 % (42-78); TOTAL CELLS COUNTED % (AUTO) 100 %; WHITE BLOOD COUNT 10.6 10^3/uL (4.0-10.5)
[2018-04-27 11:04] LABS: ALANINE AMINOTRANSFERASE 75 U/L (9-52); ALBUMIN 3.9 g/dL (3.5-5.0); ALKALINE PHOSPHATASE 82 U/L (38-126); ASPARTATE AMINO TRANSFERASE 52 U/L (14-36); BILIRUBIN,DIRECT 0.3 mg/dL (0.0-0.4); BILIRUBIN,TOTAL 0.6 mg/dL (0.2-1.3); BLOOD UREA NITROGEN 21 mg/dL (7-20); CHLORIDE 88 mmol/L (98-107); GLUCOSE 234 mg/dL (75-110); POTASSIUM 3.1 mmol/L (3.6-5.0); SODIUM 139.6 mmol/L (137-145); TOTAL PROTEIN 6.9 g/dL (6.3-8.2)
[2018-04-27 11:22] LABS: ANION GAP 7 (5-19)
[2018-04-27 11:24] LABS: CARBON DIOXIDE 45 mmol/L (22-30)
--- NOTE | 2018-04-27 11:26 | RADIOLOGY REPORT (SQ) ---
EXAM DESCRIPTION: CHEST SINGLE VIEW COMPLETED DATE/TIME: 04/27/2018 11:13 am REASON FOR STUDY: copd COMPARISON: 04/25/2018 NUMBER OF VIEWS: One view. TECHNIQUE: Single frontal radiographic view of the chest acquired. LIMITATIONS: Portable technique. FINDINGS: LUNGS AND PLEURA: No opacities, masses or pneumothorax. No pleural effusion. Attenuated bl ood vessels and flattened chuck-diaphragms. MEDIASTINUM AND HILAR STRUCTURES: No masses. Contour normal. HEART AND VASCULAR STRUCTURES: Heart normal in size. Normal vasculature. BONES: No acute findings. HARDWARE: None in the chest. OTHER: No other significant finding. IMPRESSION: COPD. NO ACUTE RADIOGRAPHIC FINDING IN THE CHEST. TECHNICAL DOCUMENTATION: JOB ID: [id number] [employer]- All Rights Reserved Reading location - IP/workstation name: [email or web address]
[2018-04-27] MEDS: CEFTRIAXONE 1 GM/D5W RTU 1 GM/50 ML RTUPB IV SCH (12:48)
[2018-04-27] MEDS ORDERED: POTASSI CL 20 MEQ/50 ML RIDER 20 MEQ/50 ML RTUPB IV SCH (16:30)
--- NOTE | 2018-04-27 17:25 | EKG REPORT ---
SEVERITY:- ABNORMAL ECG - SINUS RHYTHM SHORT ME INTERVAL, ACCELERATED AV CONDUCTION LEFT ANTERIOR FASCICULAR BLOCK BORDERLINE T ABNORMALITIES, ANT-LAT LEADS BORDERLINE PROLONGED QT INTERVAL : Confirmed by: Ngozi Zaidi MD 27-Apr-2018 17:24:57
[2018-04-27] MEDS: POTASSIUM CHLORIDE 10 MEQ CAPSULE.ER PO SCH ×2 (19:00→22:46)
[2018-04-27] MEDS: AZITHROMYCIN 500 MG in DEXTROSE 5%-WATER 250 ML IV SCH (23:13)
--- NOTE | 2018-04-27 23:41 | PDOC CONSULTATION ---
Consultation-Blank Consultation: CARDIOLOGY CONSULTATION by Dr. Ngozi Zaidi on 04/27/2018. Patient seen at 1 PM. 60 minutes spent on this patient with more than 50% time spent in direct patient care. REASON FOR CONSULTATION: Patient with paroxysmal atrial flutter. HISTORY PRESENT ILLNESS: Patient is a 73-year-old female with known history of atrial fibrillation/atrial flutter both paroxysmal, and history of COPD and history of asthma and history of diabetes mellitus type 2 who states that since several days prior to this admission she has not been feeling well and was having increasing shortness of breath she had productive cough which is greenish yellow sputum. She states she felt warm but no temperature taken. She is had a decreased appetite. She also has been having some leg swelling. She does use BiPAP at home. She went to see Dr. Carrera in his office, who prompted her to come to the emergency room. Her initial EKG showed atrial flutter with a controlled ventricular response. Subsequent EKG done shows sinus rhythm with short [place] interval. The patient denies any chest pain discomfort. The patient denies any palpitations, near-syncope or syncope. PAST MEDICAL HISTORY. Is positive for history of COPD. A couple of months ago, the patient was admitted to the hospital in [place] for pneumonia requiring intubation. Since February 2018 this is the third admission for the patient for acute exacerbation of COPD. The patient developed atrial fibrillation in the last admission which is the first episode. There is no history of syncope. There is no history of coronary artery disease, FL or anginal symptoms. The patient denies history of congestive heart failure. The patient is now a diabetic, but states that her blood sugars go up when she is on steroid therapy. She denies history of for hypertension. There is no history of coronary artery disease or FL or anginal symptoms. There is no history of chronic kidney disease. There is no history of thyroid disease. She has a history of arthritis. There is no history of GI bleed, but does have a history of GERD. PAST SURGICAL HISTORY: History of right carpal tunnel release surgery x2, left carpal tunnel release surgery x1, left total knee replacement. Also has a past history of hysterectomy. ALLERGIES: No known allergies. SOCIAL HISTORY: Former smoker has not smoked in a few years. No history of EtOH abuse FAMILY HISTORY: Is negative for cardiac arrhythmia, congestive heart failure or coronary artery disease. DISPOSITION: The patient is a full code. Her son and daughter are her surrogate healthcare decision makers. REVIEW SYSTEMS: CONSTITUTIONAL:: Denies any fever chills or rigors. Complains of generalized fatigue and weakness. HEAD: No history of headaches or head injury. EYES: No history of amblyopia diplopia. No history of amaurosis fugax. EARS: No history of hearing loss. No history of tinnitus. SKIN: No history of pruritus. No history of yellowish discoloration of the skin. No history of skin cancer. No history of yellowish discoloration of the skin. No history of psoriasis. She has very easy bruisability, and has superficial ecchymosis over her extremities. NOSE: No history of hayfever. No history of nosebleeds. MOUTH: No history of altered taste sensation. No ulcers in the mouth. No bleeding from the gums. THROAT: No history of odynophagia or dysphagia. No history of recurrent sore throats. NECK: No history of symptoms of C-spine arthritis. No history of neck swelling. No history of goiter. LUNGS: History of COPD present. Recent admission to [facility] for respiratory failure requiring intubation due to acute exacerbation of COPD and pneumonia. Patient readmitted to this hospital on 31 March with respiratory failure, patient being very obtunded on admission to the ER, with a history of increasing shortness of breath, and orthopnea. And cough productive of greenish sputum. No history of symptoms suggestive of sleep apnea. The patient's PFTs show that the patient is a severe COPD. HEART: First episode of atrial fibrillation. No history of hypertension. No history of coronary artery disease. No history of FL or angina. No prior history of congestive heart failure. No history of syncope. No history of leg edema. ABDOMEN: No history of fatty food intolerance. No history of abdominal pain. No history of jaundice. History of GERD present. No history of GI bleed. No history of altered bowel movements. ENDOCRINE: History of diabetes mellitus, but the patient's blood sugar gets elevated when on steroid therapy. No history of polydipsia polyuria. No history of heat or cold intolerance. No history of hirsutism. No history of thyroid disease. No history of excessive sweating. RENAL: No history of chronic kidney disease. No history of symptoms of UTI. No hematuria pyuria dysuria. MUSCULOSKELETAL: Complains of arthritis. No history of collagen vascular disease. ENGINEER BYPRODUCT: No history of TIA CVA. No history of headaches migraines or seizures. PSYCHIATRIC: No history of anxiety or depression. No suicidal ideation. No homicidal ideation. VASCULAR: No history of calf or buttock claudication. But the patient does not walk a lot due to his COPD. No history of DVT. HEMATOLOGICAL: No history of bleeding diathesis. No history of clotting disorders. METABOLIC: No history of gout. History of moderate obesity present. No hyperlipidemia. PHYSICAL EXAMINATION: The patient is moderately obese, in mild respiratory distress, the patient is on BiPAP. She seems to be well-groomed. 04/27/18 04/27/18 04/27/18 08:10 08:57 12:28 Temperature 97.4 F 97.6 F Temperature Axillary Axillary Source Pulse Rate 81 90 Respiratory 18 20 Rate Blood Pressure 111/87 H 145/63 H Blood Pressure 95 90 Mean BP Location Right Arm Right Arm BP Position Supine Sitting O2 Sat by Pulse 95 Oximetry Fraction of 40 Inspired Oxygen (FIO2) Oxygen Flow 6.00 6.00 Rate Oxygen Delivery Bipap Bipap Method HEAD: Is atraumatic normocephalic cephalic. EYES: Pupils equal round regular reactive to light and accommodation. There is no conjunctival pallor. There is no scleral icterus. EARS: Tympanic memories are intact. External auditory canals are clear. NOSE: There is no inflammation of the nasal mucous membrane. There is no deviated nasal septum. MOUTH: Mucous membranes of the mouth are moist. Tongue is moist there is no ulcers in the mouth. THERE IS NO BLEEDING FROM THE GUMS. Throat: There is no redness of the oropharynx. There is no exudates. SKIN: There is extensive superficial bruising bruising of the skin causing ecchymosis. There is no petechia. There is no skin rashes. There is no skin lesions. NECK: Is supple. There is no JVD. Carotids are equal there is no bruit. There is no lymphadenopathy. There is no goiter. Trachea central. There is no accessory muscle respiration use, although the patient is on BiPAP. LUNGS: There is diminished air entry prolonged expiration. There is scattered rhonchi and wheezing bilaterally. There is hyperresonance on percussion. HEART: S1-S2 is heard. S1 is of normal intensity. There is no S3 gallop there is no S4 gallop. There is systolic murmur left sternal border and apex there is no rub ABDOMEN: Is obese. There is no hepatosplenomegaly. Bowel sounds are well heard. There is no tender areas masses. EXTREMITIES: Femorals are diminished. There is no femoral bruits. Leg pulses are diminished. There is mild pedal edema bilaterally. There is no DVT or cellulitis. There is no sinus or clubbing. There is no calf tenderness ENGINEER BYPRODUCT: The patient is conscious awake alert oriented x3 with no focal deficits. PSYCHIATRIC: The patient judgment and insight are intact her affect is normal. 04/27/18 12:42 Temperature Temperature Source Pulse Rate Respiratory Rate Blood Pressure Blood Pressure Mean BP Location BP Position O2 Sat by Pulse Oximetry Fraction of 40 Inspired Oxygen (FIO2) Oxygen Flow Rate Oxygen Delivery Method 04/27/18 04/27/18 04/27/18 09:58 10:07 10:07 WBC 10.6 H RBC 3.91 Hgb 12.0 Hct 36.0 MCV 92 MCH 30.7 MCHC 33.4 RDW 15.5 H Plt Count 217 Seg Neutrophils % 88.9 H Lymphocytes % 7.6 L Monocytes % 3.4 Eosinophils % 0.0 Basophils % 0.1 Absolute Neutrophils 9.4 H Absolute Lymphocytes 0.8 Absolute Monocytes 0.4 Carbonic Acid 2.12 H HCO3/H2CO3 Ratio 21:1 ABG pH 7.44 ABG pCO2 70.4 H* ABG pO2 81.2 ABG HCO3 46.6 H ABG Total CO2 48.8 H ABG O2 Saturation 95.9 ABG Base Excess 18.8 FiO2 40% Sodium 139.6 Potassium 3.1 L Chloride 88 L Anion Gap 7 BUN 21 H Creatinine 0.57 Est GFR (Non-Af Amer) > 60 Glucose 234 H Calcium 9.0 Magnesium Total Bilirubin 0.6 Direct Bilirubin 0.3 Neonat Total Bilirubin Not Reportable Neonat Direct Bilirubin Not Reportable Neonat Indirect Bili Not Reportable AST 52 H ALT 75 H Alkaline Phosphatase 82 Total Protein 6.9 Albumin 3.9 04/27/18 15:44 WBC RBC Hgb Hct MCV MCH MCHC RDW Plt Count Seg Neutrophils % Lymphocytes % Monocytes % Eosinophils % Basophils % Absolute Neutrophils Absolute Lymphocytes Absolute Monocytes Carbonic Acid HCO3/H2CO3 Ratio ABG pH ABG pCO2 ABG pO2 ABG HCO3 ABG Total CO2 ABG O2 Saturation ABG Base Excess FiO2 Sodium Potassium Chloride Anion Gap BUN Creatinine Est GFR (Non-Af Amer) Glucose Calcium Magnesium 2.0 Total Bilirubin Direct Bilirubin Neonat Total Bilirubin Neonat Direct Bilirubin Neonat Indirect Bili AST ALT Alkaline Phosphatase Total Protein Albumin 04/26/18 07:00 Furosemide [Lasix 40 mg Tablet] 40 mg PO BID@0700,1200 04/26/18 08:00 Glipizide [Glucotrol 5 mg Tablet] 5 mg PO QAM 04/26/18 10:00 Aspirin [Ecotrin 81 mg EC Tablet] 81 mg PO DAILY Ceftriaxone 1 gm/D5w RTU [Rocephin RTU 1 gm/D5w 50 ml Premix] 1 gm in 50 ml IV DAILY Enoxaparin Sodium [Lovenox Inj 40 mg/0.4 ml Disp.syrin] 40 mg SUBCUT DAILY 04/26/18 12:45 Ipratropium/Albuterol Sulfate [Duoneb 3 ml Ampul] 3 ml NEB RTQ4 04/27/18 10:00 Guaifenesin [Mucinex Sr 600 mg Tablet.sa] 600 mg PO Q12 Insulin Detemir [Levemir Insulin 300 Units/3 ml Insuln.pen] 20 unit SUBCUT Q12 04/25/18 16:54 Acetaminophen [Tylenol 325 mg Tablet] 650 mg PO Q4HP PRN Levalbuterol HCl [Xopenex Neb 1.25 mg/3 ml Ampul] 1.25 mg NEB RTQ3HP PRN 04/25/18 17:03 Diazepam [Valium 5 mg Tablet] 5 mg PO Q8HP PRN Hydrocodone/Acetaminophen [[place] 7.5-325 mg Tablet] 1 tab PO 5XDP PRN 04/25/18 17:05 Dextrose 50%-Water [Dextrose Inj 50% Syringe (25 gm/50 ml)] 12.5 gm IV PRN PRN Dextrose 50%-Water [Dextrose Inj 50% Syringe (25 gm/50 ml)] 25 gm IV PRN PRN Dextrose [Glutose 40% Gel 15 gm Tube] 15 gm PO PRN PRN Dextrose [Glutose 40% Gel 15 gm Tube] 30 gm PO PRN PRN Glucagon,Human Recombinant [Glucagen Inj 1 mg Vial] 1 mg IM PRN PRN Insulin Lispro [Humalog Insulin 100 Unit/1 ml 3 ml Vial] 0 - 12 unit SUBCUT ACHSP PRN 04/25/18 18:00 Magnesium Oxide [Mag-Ox 400 mg Tablet] 400 mg PO BID 04/25/18 20:00 Budesonide [Pulmicort Neb 0.5 mg/2 ml Ampul] 0.5 mg NEB RTQ12 04/25/18 22:00 Azithromycin [Zithromax Inj 500 mg Vial] 500 mg Dextrose 5%-Water [D5w 250 ml IV Soln] 250 ml IV QHS Diltiazem HCl [Cardizem 60 mg Tablet] 60 mg PO Q8 Famotidine [Pepcid 20 mg Tablet] 20 mg PO Q12 Fluticasone Propionate [Flonase Nasal [place] 50 Mcg/[place] 16 gm] 1 spray NASL Q12 Methylprednisolone Sod Succ/Pf [Solu-Medrol Inj/Pf 125 mg/2 ml Sdv] 60 mg IV Q8 Normal Saline [Saline Flush 2.5 ml Monoject Prefil Syrin] 2.5 ml IV Q8 Her chest x-ray is consistent with COPD, with no acute infiltrates. Her EKG initially showed atrial flutter with a controlled ventricular response. Her subsequent EKG shows: SINUS RHYTHM . SHORT [place] INTERVAL, ACCELERATED AV CONDUCTION . LEFT ANTERIOR FASCICULAR BLOCK . BORDERLINE T ABNORMALITIES, ANT-LAT LEADS . BORDERLINE PROLONGED QT INTERVAL. IMPRESSION/RECOMMENDATION: 1. Paroxysmal Atrial Flutter. Most likely related to the patient's COPD/acute exacerbation and infective bronchitis. Recommend continue oral Cardizem at 60 mg p.o. every 8 hours, and subsequently converting into a long-acting Cardizem preparation. 2. Acute on chronic respiratory failure. Continue current oxygen and current therapy. 3. ACUTE exacerbation of COPD. Note patient has severe COPD. Continue anti- COPD treatment, including BiPAP. 4. Diabetes mellitus type 2 [id number]. Continue antidiabetic medication. 5.The patient's corrected Chinedu Vasc2 score is 3. Hence the patient will benefit from chronic anticoagulation. But the patient has significant ecchymosis throughout her skin over the extremities, and hence we discussed with Dr. Carrera prior to starting her on Eliquis. Discussed with the patient's daughter also. Medications reviewed. Management plan discussed with attending physician on the case. Medical decision making is of high complexity. 60 minutes spent on this patient more than 50% time spent in direct patient care. We will follow with you.
[2018-04-28] MEDS: IPRATROPIUM/ALBUTEROL 0.5-2.5 MG/3 ML AMPUL NEB SCH ×6 (03:53→23:49)
[2018-04-28] MEDS: HYDROCODONE/ACETAMINOPHEN 7.5-325 MG TABLET PO PRN ×3 (04:41→18:43)
[2018-04-28] MEDS ORDERED: MAG HYDROX/AL HYDROX/SIMETH SUSP 30 ML UDCUP ONE (05:06)
[2018-04-28] MEDS: METHYLPREDNISOLONE INJ 125 MG/2 ML SDV IV SCH ×3 (05:17→22:05)
[2018-04-28] MEDS: DILTIAZEM HCL 60 MG TABLET PO SCH ×3 (06:23→22:07)
[2018-04-28] MEDS: DIAZEPAM 5 MG TABLET PO PRN ×2 (06:23→16:33)
[2018-04-28] MEDS: FUROSEMIDE 40 MG TABLET PO SCH ×2 (06:24→13:09)
[2018-04-28 07:34] LABS: BLOOD UREA NITROGEN 28 mg/dL (7-20); CALCIUM 8.8 mg/dL (8.4-10.2); CHLORIDE 92 mmol/L (98-107); GLUCOSE 328 mg/dL (75-110); SODIUM 138.8 mmol/L (137-145)
[2018-04-28 07:40] LABS: ANION GAP 8 (5-19); CARBON DIOXIDE 39 mmol/L (22-30)
[2018-04-28 07:56] LABS: POTASSIUM 4.7 mmol/L (3.6-5.0)
[2018-04-28] MEDS: GLIPIZIDE 5 MG TABLET PO SCH (07:58)
[2018-04-28] MEDS: BUDESONIDE NEB 0.5 MG/2 ML AMPUL NEB SCH ×3 (08:37→19:06)
[2018-04-28] MEDS: GUAIFENESIN 600 MG TABLET.SA PO SCH ×2 (09:38→22:08)
[2018-04-28] MEDS: MAGNESIUM OXIDE 400 MG TABLET PO SCH ×2 (09:38→17:21)
[2018-04-28] MEDS: ASPIRIN 81 MG TABLET, ENT COATED PO SCH (09:38)
[2018-04-28] MEDS: FLUTICASONE NASAL SPRAY 50 MCG/SPRY 120 SPRAY/16 GM NASL SCH ×2 (09:39→22:06)
[2018-04-28] MEDS: FAMOTIDINE 20 MG TABLET PO SCH ×2 (09:39→22:08)
[2018-04-28] MEDS: CEFTRIAXONE 1 GM/D5W RTU 1 GM/50 ML RTUPB IV SCH (09:40)
[2018-04-28 09:49] LABS: ARTERIAL BLOOD BASE EXCESS 18.1 mmol/L; ARTERIAL BLOOD H2CO3 2.95 mmol/L (1.05-1.35); ARTERIAL BLOOD O2 SATURATION 97.5 % (94-98); ARTERIAL BLOOD PH 7.32 (7.35-7.45); ARTERIAL BLOOD PO2 114.9 mmHg (80-100)
[2018-04-28 10:15] LABS: ARTERIAL BLOOD FIO2 60%
[2018-04-28] MEDS: INSULIN DETEMIR 100 UNIT/ML 3 ML PEN SUBCUT SCH ×2 (10:23→22:11)
[2018-04-28] MEDS ORDERED: GUAIFENESIN 600 MG TABLET.SA PO ONE (11:00)
[2018-04-28] MEDS: ENOXAPARIN SODIUM INJ 40 MG/0.4 ML DISP.SYRIN SUBCUT SCH (13:08)
[2018-04-28] MEDS: INSULIN LISPRO 100 UNIT/ML 3 ML VIAL SUBCUT PRN (13:09)
[2018-04-28] MEDS: DOCUSATE SODIUM 100 MG CAPSULE PO SCH ×2 (13:17→22:08)
--- NOTE | 2018-04-28 13:50 | PDOC PROGRESS REPORT ---
Subjective Progress Note for:: 04/28/18 Subjective:: Feeling better able to bring up some sputum but not sent no fever, awake not tachypneic, no bowel movements. Reason For Visit: EXACERBATION COPD CHRONIC ATRIAL FIBRILLATION Physical Exam Vital Signs: Temp Pulse Resp BP Pulse Ox 97.3 F 86 20 102/81 97 04/28/18 09:53 04/28/18 09:53 04/28/18 10:50 04/28/18 09:53 04/28/18 10:50 Intake & Output 04/27/18 04/28/18 04/29/18 06:59 06:59 06:59 Intake Total 1098 1300 50 Balance 1098 1300 50 Weight 85.5 kg General appearance: PRESENT: mild distress Head exam: PRESENT: atraumatic, normocephalic Eye exam: PRESENT: conjunctiva pink, EOMI, PERRLA. ABSENT: scleral icterus Ear exam: PRESENT: normal external ear exam Mouth exam: PRESENT: moist, tongue midline Teeth exam: PRESENT: poor dentation Throat exam: PRESENT: post pharyngeal erythema Neck exam: PRESENT: full ROM. ABSENT: carotid bruit, JVD, lymphadenopathy, thyromegaly Respiratory exam: PRESENT: decreased breath sounds, wheezes Cardiovascular exam: PRESENT: irregular rhythm Pulses: PRESENT: normal dorsalis pedis pul, +2 pedal pulses bilateral GI/Abdominal exam: PRESENT: normal bowel sounds, soft. ABSENT: distended, guarding, mass, organolmegaly, rebound, tenderness Extremities exam: PRESENT: pedal edema Musculoskeletal exam: PRESENT: ambulatory Neurological exam: PRESENT: alert, awake, oriented to person, oriented to place, oriented to time, oriented to situation, CN II-XII grossly intact. ABSENT: motor sensory deficit Psychiatric exam: PRESENT: appropriate affect, normal mood. ABSENT: homicidal ideation, suicidal ideation Skin exam: PRESENT: rash - gluteal partial healed no drainage or erythema Results Laboratory Results: 04/27/18 10:07 04/28/18 06:46 04/27/18 04/28/18 04/28/18 15:44 06:46 09:30 Carbonic Acid 2.95 H HCO3/H2CO3 Ratio 16:1 ABG pH 7.32 L ABG pCO2 98.0 H* ABG pO2 114.9 H ABG HCO3 49.0 H ABG O2 Saturation 97.5 ABG Base Excess 18.1 FiO2 60% Sodium 138.8 Potassium 4.7 D Chloride 92 L Carbon Dioxide 39 H Anion Gap 8 BUN 28 H Creatinine 0.51 L Est GFR ( Amer) > 60 Est GFR (Non-Af Amer) > 60 Glucose 328 H Calcium 8.8 Magnesium 2.0 04/25/18 13:36 Troponin I < 0.012 Impressions: Chest X-Ray 04/27/18 00:00 IMPRESSION: COPD. NO ACUTE RADIOGRAPHIC FINDING IN THE CHEST. Assessment & Plan - Diagnosis (1) Acute respiratory failure with hypoxia and hypercapnia Is this a current diagnosis for this admission?: Yes Plan: flutter valve check ABG, increase pulmicort Q6 hrs, mucinex 1200 mg PO BID (2) COPD (chronic obstructive pulmonary disease) with emphysema Qualifiers: Emphysema type: centrilobular Qualified Code(s): J43.2 - Centrilobular emphysema Is this a current diagnosis for this admission?: Yes Plan: cont iv steriods b2 agonist (3) Atrial flutter Qualifiers: Atrial flutter type: typical Qualified Code(s): I48.3 - Typical atrial flutter Is this a current diagnosis for this admission?: Yes Plan: cont. 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 Diabetes mellitus complication status: without complication Qualified Code(s): E11.9 - Type 2 diabetes mellitus without complications; Z79.4 - prison (current) use of insulin Is this a current diagnosis for this admission?: Yes Plan: continue current treatment - Time Time Spent with patient: 25-34 minutes Medications reviewed and adjusted accordingly: Yes Anticipated discharge: Other Within: Other - Inpatient Certification I certify that my determination is in accordance with my understanding of [employer] 's requirements for reasonable and necessary INPATIENT services [42 CFR 412.3e].: Yes Medical Necessity: Failure to Improve With Outpatient Therapy, Need Close M onitoring Due to Risk of Patient Decompensation, Need for IV Antibiotics Post Hospital Care: D/C Binder Cutter Hand Documentation
[2018-04-28 14:42] LABS: ARTERIAL BLOOD BASE EXCESS 20.3 mmol/L; ARTERIAL BLOOD FIO2 45%; ARTERIAL BLOOD PH 7.42 (7.35-7.45); ARTERIAL BLOOD TOTAL CO2 51.3 mmol/L (21-25)
[2018-04-28 14:45] LABS: ARTERIAL BLOOD PCO2 76.5 mmHg (35-45)
[2018-04-28] MEDS: BUDESONIDE/FORMOTEROL 160-4.5 MCG 60 PUFF/6 GM MDI IH SCH ×2 (16:33→22:07)
--- NOTE | 2018-04-28 16:33 | PDOC CONSULTATION ---
Consultation Consult Date: 04/28/18 Attending physician:: BRANNON BERNABE Consult reason:: Dyspnea acute on chronic respiratory failure History of Present Illness Admission Date/PCP: 04/25/18 15:48 BRANNON BERNABE MD History of Present Illness: DAMIAN LOWRY is a 73 year old female, known to [facility] for end-stage COPD is home on a trilogy however she caught a "cold" and felt a trilogy was not working as she came more progressively short of breath currently is admitted for hypoxemic hypercapnic respiratory failure was placed on BiPAP despite trilogy being in the room. She denies nausea vomiting diarrhea admits to some chills but no fever cough productive of clear phlegm no hemoptysis. Past Medical History Cardiac Medical History: Reports: Atrial Fibrillation - Atrial flutter, Congestive Heart Failure Denies: Coronary Artery Disease, Myocardial Infarction, Hypertension Pulmonary Medical History: Reports: Asthma, Bronchitis, Chronic Obstructive Pulmonary Disease (COPD), Pneumonia EENT Medical History: Reports: Cataracts Neurological Medical History: Denies: Hemorrhagic CVA, Ischemic CVA, Seizures Endocrine Medical History: Reports: Diabetes Mellitus Type 2 Denies: Hypothyroidism Renal/ Medical History: Denies: Chronic Kidney Disease, End Stage Renal Disease Malignancy Medical History: Reports: None GI Medical History: Reports: None Musculoskeltal Medical History: Reports: Arthritis Skin Medical History: Reports: Eczema Traumatic Medical History: Reports: None Denies: Traumatic Brain Injury Hematology: Denies: Anemia, Sickle Cell Disease Infectious Medical History: Reports: None Denies: HIV Past Surgical History Past Surgical History: Reports: Cholecystectomy, Hysterectomy, Orthopedic Surgery - Left total knee arthroplasty, bilateral carpal tunnel syndrome Social History Information Source: Patient, Relative, [facility] Records Lives with: Family Smoking Status: Former Smoker Frequency of Alcohol Use: None Hx Recreational Drug Use: No Drugs: None Hx Prescription Drug Abuse: No - Advance Directive Resuscitation Status: Full Code Family History Family History: CAD, DM Parental Family History Reviewed: Yes Children Family History Reviewed: Yes Sibling(s) Family History Reviewed.: Yes Medication/Allergy Home Medications: Aspirin [Ecotrin 81 mg EC Tablet] 81 mg PO DAILY 04/25/18 Budesonide/Formoterol Fumarate [Symbicort Hfa 160-4.5 Mcg Inhaler 6 gm] 2 puff IH Q12 04/25/18 Cholecalciferol (Vitamin D3) [Vitamin D3 2000 unit Tablet] 2,000 unit PO QHS 04/25/18 Diazepam [Valium 5 mg Tablet] 5 mg PO Q8HP PRN 04/25/18 Diltiazem HCl [Cardizem 60 mg Tablet] 60 mg PO Q8 04/25/18 Famotidine [Pepcid 20 mg Tablet] 20 mg PO Q12 04/25/18 Fluticasone Propionate [Flonase Nasal [place] 50 Mcg/[place] 16 gm] 1 spray NASL Q12 04/25/18 Furosemide [Lasix 40 mg Tablet] 40 mg PO BID@0700,1200 04/25/18 Glipizide [Glocotrol 5 Mg Tablet] 5 mg PO QAM 04/25/18 Hydrocodone/Acetaminophen [[place] 7.5-325 Tablet] 1 each PO 5XDP PRN 04/25/18 Insulin Detemir [Levemir Insulin 300 Units/3 ml Insuln.pen] 10 unit SUBCUT Q12 04/25/18 Ipratropium/Albuterol Sulfate [Combivent Respimat 4 gm Mdi] 1 puff IH Q4HP PRN 04/25/18 Ipratropium/Albuterol Sulfate [Duoneb 3 ml Ampul] 3 ml NEB RTQ6HP PRN 04/25/18 Lidocaine/Maalox Compound 30 ml PO Q8HP PRN 04/25/18 Magnesium Oxide [Mag-Ox 400 mg Tablet] 400 mg PO BID 04/25/18 Potassium Chloride [Klor-Con 10 Meq Capsule ER] 10 meq PO Q12 04/25/18 Prednisone [Deltasone 10 mg Tablet] 10 mg PO BID 04/25/18 Allergies/Adverse Reactions: No Known Allergies Allergy (Verified 04/25/18 13:10) Review of Systems ROS unobtainable: Due to mental status Physical Exam Vital Signs: Temp Pulse Resp BP Pulse Ox 97.2 F 76 13 123/53 L 99 04/28/18 15:34 04/28/18 15:34 04/28/18 15:34 04/28/18 15:34 04/28/18 15:34 Intake & Output 04/27/18 04/28/18 04/29/18 06:59 06:59 06:59 Intake Total 1098 1300 50 Balance 1098 1300 50 Weight 85.5 kg General appearance: PRESENT: no acute distress, cooperative, disheveled, obese Head exam: PRESENT: atraumatic, normocephalic Eye exam: PRESENT: conjunctiva pale, EOMI. ABSENT: nystagmus, scleral icterus Mouth exam: PRESENT: dry mucosa, neck supple, tongue midline Neck exam: ABSENT: carotid bruit, JVD, lymphadenopathy, thyromegaly, tracheal deviation, tracheostomy Respiratory exam: PRESENT: decreased breath sounds, prolonged expiratory phas, rales, rhonchi, tachypnea, unlabored. ABSENT: retraction, stridor Cardiovascular exam: PRESENT: RRR, +S1, +S2 Pulses: PRESENT: normal radial pulses GI/Abdominal exam: PRESENT: soft. ABSENT: tenderness Extremities exam: ABSENT: calf tenderness, clubbing, joint swelling, pedal edema Musculoskeletal exam: ABSENT: deformity, dislocation Neurological exam: PRESENT: awake Psychiatric exam: PRESENT: appropriate affect Skin exam: PRESENT: dry, warm Results Laboratory Results: 04/27/18 10:07 04/28/18 06:46 04/27/18 04/28/18 04/28/18 15:44 06:46 09:30 Carbonic Acid 2.95 H HCO3/H2CO3 Ratio 16:1 ABG pH 7.32 L ABG pCO2 98.0 H* ABG pO2 114.9 H ABG HCO3 49.0 H ABG O2 Saturation 97.5 ABG Base Excess 18.1 FiO2 60% Sodium 138.8 Potassium 4.7 D Chloride 92 L Carbon Dioxide 39 H Anion Gap 8 BUN 28 H Creatinine 0.51 L Est GFR ( Amer) > 60 Est GFR (Non-Af Amer) > 60 Glucose 328 H Calcium 8.8 Magnesium 2.0 04/28/18 14:30 Carbonic Acid 2.30 H HCO3/H2CO3 Ratio 21:1 ABG pH 7.42 ABG pCO2 76.5 H* ABG pO2 84.0 ABG HCO3 49.0 H ABG O2 Saturation 96.0 ABG Base Excess 20.3 FiO2 45% Sodium Potassium Chloride Carbon Dioxide Anion Gap BUN Creatinine Est GFR ( Amer) Est GFR (Non-Af Amer) Glucose Calcium Magnesium 04/25/18 13:36 Troponin I < 0.012 Impressions: Chest X-Ray 04/27/18 00:00 IMPRESSION: COPD. NO ACUTE RADIOGRAPHIC FINDING IN THE CHEST. Assessment & Plan - Diagnosis (1) Acute respiratory failure with hypoxia and hypercapnia Is this a current diagnosis for this admission?: Yes Plan: No leukocytosis no change in chest x-ray increase IPAP to 20cm: EPAP to 8 follow SaO2 keep saturation between 90 and 92% (2) Atrial flutter Qualifiers: Atrial flutter type: typical Qualified Code(s): I48.3 - Typical atrial flutter Is this a current diagnosis for this admission?: Yes Plan: As per cardiology
--- NOTE | 2018-04-28 16:48 | Progress Note ---
Provider Note Provider Note: CARDIOLOGY PROGRESS NOTE by Dr. Ngozi Zaidi on 04/28/2018. SUBJECTIVE: The patient continues to be short of breath and is very a BiPAP, and still in mild respiratory distress. She is not using accessory muscle respiration. She does have orthopnea. But no PND. There is no chest pain or discomfort. The patient remains in sinus rhythm, with no recurrence of atrial flutter. There is no TIA CVA symptoms. There is significant bruising of the skin of her extremities and torso. Hence patient not a good candidate for anticoagulation. There is no TIA CVA symptoms. The patient has some cough at times, which is nonproductive. There is no hemoptysis. There is no dizziness near syncope or syncope. But the patient complains of severe fatigue and weakness. There is no increase in her pedal edema. PHYSICAL EXAMINATION: The patient is moderately obese. The patient in very mild respiratory distress. She is not using accessory muscles of respiration. She is on the BiPAP. Selected Entries 04/28/18 15:34 Temperature 97.2 F Temperature Axillary Source Pulse Rate 76 Respiratory 13 Rate Blood Pressure 123/53 L Blood Pressure 76 Mean BP Location Right Arm BP Position Supine O2 Sat by Pulse 99 Oximetry Oxygen Delivery Bipap Method HEAD: Is atraumatic normocephalic cephalic. EYES: Pupils equal round regular reactive to light and accommodation. There is no conjunctival pallor. There is no scleral icterus. EARS: Tympanic memories are intact. External auditory canals are clear. NOSE: There is no inflammation of the nasal mucous membrane. There is no deviated nasal septum. MOUTH: Mucous membranes of the mouth are moist. Tongue is moist there is no ulcers in the mouth. THERE IS NO BLEEDING FROM THE GUMS. Throat: There is no redness of the oropharynx. There is no exudates. SKIN: There is extensive superficial bruising bruising of the skin causing ecchymosis. There is no petechia. There is no skin rashes. There is no skin lesions. NECK: Is supple. There is no JVD. Carotids are equal there is no bruit. There is no lymphadenopathy. There is no goiter. Trachea central. There is no accessory muscle respiration use, although the patient is on BiPAP. LUNGS: There is diminished air entry prolonged expiration. There is scattered rhonchi and wheezing bilaterally. There is hyperresonance on percussion. HEART: S1-S2 is heard. S1 is of normal intensity. There is no S3 gallop there is no S4 gallop. There is systolic murmur left sternal border and apex there is no rub ABDOMEN: Is obese. There is no hepatosplenomegaly. Bowel sounds are well heard. There is no tender areas masses. EXTREMITIES: Femorals are diminished. There is no femoral bruits. Leg pulses are diminished. There is mild pedal edema bilaterally. There is no DVT or cellulitis. There is no sinus or clubbing. There is no calf tenderness TRANSITION OF CARE SPECIALIST: The patient is conscious awake alert oriented x3 with no focal deficits. PSYCHIATRIC: The patient judgment and insight are intact her affect is normal. 04/28/18 04/28/18 06:46 14:30 Carbonic Acid 2.30 H HCO3/H2CO3 Ratio 21:1 ABG pH 7.42 ABG pCO2 76.5 H* ABG pO2 84.0 ABG HCO3 49.0 H ABG Total CO2 51.3 H ABG O2 Saturation 96.0 ABG Base Excess 20.3 FiO2 45% Sodium 138.8 Potassium 4.7 D Chloride 92 L Carbon Dioxide 39 H Anion Gap 8 BUN 28 H Creatinine 0.51 L Est GFR (Non-Af Amer) > 60 Glucose 328 H Calcium 8.8 IMPRESSION/RECOMMENDATION: 1. Paroxysmal Atrial Flutter. Most likely related to the patient's COPD/acute exacerbation and infective bronchitis. Recommend continue oral Cardizem at 60 mg p.o. every 8 hours, and subsequently converting into a long-acting Cardizem preparation. 2. Acute on chronic respiratory failure. Continue current oxygen and current therapy. 3. ACUTE exacerbation of COPD. Note patient has severe COPD. Continue anti- COPD treatment, including BiPAP. 4. Diabetes mellitus type 2, [id number]. Continue Glucotrol. 5/The patient's corrected Chinedu Vasc2 score is 3. Hence the patient will benefit from chronic anticoagulation. But the patient has significant ecchymosis throughout her skin over the extremities, and hence discussed with Dr. Carrera prior to starting her on Eliquis. Discussed with the patient's daughter also. Medications reviewed. Management plan discussed with attending physician on the case. Medical decision making is of high complexity. Discussed with Dr. Carrera, the attending physician, that the patient is a poor candidate, with high risk for complications such as bleeding from chronic anticoagulation. He agrees. Hence we will not place the patient on chronic anticoagulation. This has been discussed with patient patient daughter. We will probably place the patient on aspirin 81 mg p.o. daily.
[2018-04-28] MEDS: AZITHROMYCIN 250 MG TABLET PO SCH (22:07)
[2018-04-29] MEDS: BUDESONIDE NEB 0.5 MG/2 ML AMPUL NEB SCH ×4 (02:02→20:26)
[2018-04-29] MEDS: IPRATROPIUM/ALBUTEROL 0.5-2.5 MG/3 ML AMPUL NEB SCH ×5 (04:24→20:26)
[2018-04-29 05:16] LABS: BLOOD UREA NITROGEN 32 mg/dL (7-20); CALCIUM 8.8 mg/dL (8.4-10.2); CHLORIDE 88 mmol/L (98-107); GLUCOSE 200 mg/dL (75-110)
[2018-04-29] MEDS: METHYLPREDNISOLONE INJ 125 MG/2 ML SDV IV SCH ×3 (05:34→21:13)
[2018-04-29] MEDS: DOCUSATE SODIUM 100 MG CAPSULE PO SCH ×3 (05:34→21:12)
[2018-04-29] MEDS: DILTIAZEM HCL 60 MG TABLET PO SCH ×3 (05:34→21:11)
[2018-04-29 06:17] LABS: CARBON DIOXIDE 47 mmol/L (22-30)
[2018-04-29 06:18] LABS: ANION GAP 3 (5-19)
[2018-04-29 06:43] LABS: ARTERIAL BLOOD BASE EXCESS 18.5 mmol/L; ARTERIAL BLOOD H2CO3 2.23 mmol/L (1.05-1.35); ARTERIAL BLOOD HCO3 46.7 mmol/L (20-24); ARTERIAL BLOOD O2 SATURATION 95.9 % (94-98); ARTERIAL BLOOD PH 7.42 (7.35-7.45); ARTERIAL BLOOD PO2 83.9 mmHg (80-100)
[2018-04-29 06:44] LABS: ARTERIAL BLOOD FIO2 45%
[2018-04-29 06:45] LABS: ARTERIAL BLOOD PCO2 74.2 mmHg (35-45)
[2018-04-29] MEDS: INSULIN LISPRO 100 UNIT/ML 3 ML VIAL SUBCUT PRN ×2 (08:31→17:19)
[2018-04-29] MEDS: GLIPIZIDE 5 MG TABLET PO SCH (08:31)
[2018-04-29] MEDS: FUROSEMIDE 40 MG TABLET PO SCH ×2 (08:31→13:18)
[2018-04-29] MEDS: DIAZEPAM 5 MG TABLET PO PRN (08:40)
[2018-04-29] MEDS ORDERED: LIDOCAINE 1% INJ-PF (10 MG/ML) 30 ML SDV INJ PRN (09:38)
--- NOTE | 2018-04-29 11:21 | PDOC PROGRESS REPORT ---
Subjective Progress Note for:: 04/29/18 Subjective:: She feels better and still bipap, her blood gas improved, denies c/p, palpitation, still no BM but no N/V. Reason For Visit: EXACERBATION COPD CHRONIC ATRIAL FIBRILLATION Physical Exam Vital Signs: Temp Pulse Resp BP Pulse Ox 97.2 F 84 16 132/57 H 98 04/29/18 03:12 04/29/18 08:10 04/29/18 08:10 04/29/18 03:12 04/29/18 08:10 Intake & Output 04/28/18 04/29/18 04/30/18 06:59 06:59 06:59 Intake Total 1300 250 Balance 1300 250 Weight 87.8 kg General appearance: PRESENT: mild distress, obese Head exam: PRESENT: atraumatic, normocephalic Eye exam: PRESENT: conjunctiva pink, EOMI, PERRLA. ABSENT: scleral icterus Ear exam: PRESENT: normal external ear exam Mouth exam: PRESENT: moist, tongue midline Throat exam: PRESENT: post pharyngeal erythema Neck exam: PRESENT: full ROM. ABSENT: carotid bruit, JVD, lymphadenopathy, thyromegaly Respiratory exam: PRESENT: decreased breath sounds, wheezes Cardiovascular exam: PRESENT: irregular rhythm Pulses: PRESENT: normal dorsalis pedis pul, +2 pedal pulses bilateral Vascular exam: PRESENT: normal capillary refill GI/Abdominal exam: PRESENT: normal bowel sounds, soft. ABSENT: distended, guarding, mass, organolmegaly, rebound, tenderness Extremities exam: PRESENT: pedal edema Musculoskeletal exam: PRESENT: ambulatory Neurological exam: PRESENT: alert, awake, oriented to person, oriented to place, oriented to time, oriented to situation, CN II-XII grossly intact. ABSENT: motor sensory deficit Psychiatric exam: PRESENT: appropriate affect, normal mood. ABSENT: homicidal ideation, suicidal ideation Skin exam: PRESENT: dry, intact, warm. ABSENT: cyanosis, rash Results Laboratory Results: 04/27/18 10:07 04/29/18 03:57 04/28/18 04/29/18 04/29/18 14:30 03:57 06:28 Carbonic Acid 2.30 H 2.23 H HCO3/H2CO3 Ratio 21:1 20:1 ABG pH 7.42 7.42 ABG pCO2 76.5 H* 74.2 H* ABG pO2 84.0 83.9 ABG HCO3 49.0 H 46.7 H ABG O2 Saturation 96.0 95.9 ABG Base Excess 20.3 18.5 FiO2 45% 45% Sodium 138.0 Potassium 4.0 Chloride 88 L Carbon Dioxide 47 H* Anion Gap 3 L BUN 32 H Creatinine 0.54 Est GFR ( Amer) > 60 Est GFR (Non-Af Amer) > 60 Glucose 200 H Calcium 8.8 04/25/18 13:36 Troponin I < 0.012 Impressions: Chest X-Ray 04/27/18 00:00 IMPRESSION: COPD. NO ACUTE RADIOGRAPHIC FINDING IN THE CHEST. Assessment & Plan - Diagnosis (1) Acute respiratory failure with hypoxia and hypercapnia Is this a current diagnosis for this admission?: Yes (2) COPD (chronic obstructive pulmonary disease) with emphysema Qualifiers: Emphysema type: centrilobular Qualified Code(s): J43.2 - Centrilobular emphysema Is this a current diagnosis for this admission?: Yes (3) Atrial flutter Qualifiers: Atrial flutter type: typical Qualified Code(s): I48.3 - Typical atrial flutter Is this a current diagnosis for this admission?: Yes (4) Diabetes Qualifiers: Diabetes mellitus type: type 2 Diabetes mellitus watermaster insulin use: with watermaster use Diabetes mellitus complication status: without complication Qualified Code(s): E11.9 - Type 2 diabetes mellitus without complications; Z79.4 - termite treater helper (current) use of insulin Is this a current diagnosis for this admission?: Yes - Time Time Spent with patient: 15-24 minutes Smoking Cessation Education: 3 to 10 minutes Medications reviewed and adjusted accordingly: Yes Anticipated discharge: Home Within: Other - Inpatient Certification I certify that my determination is in accordance with my understanding of Medicare's requirements for reasonable and necessary INPATIENT services [42 CFR 412.3e].: Yes Medical Necessity: Failure to Improve With Outpatient Therapy, Need for IV Antibiotics Post Hospital Care: D/C Mathematical Scientist Documentation
[2018-04-29] MEDS ORDERED: NORMAL SALINE INJ/PF 0.9% 10 ML SDV IV PRN (11:34)
[2018-04-29] MEDS: GUAIFENESIN 600 MG TABLET.SA PO SCH ×2 (11:35→21:12)
[2018-04-29] MEDS: MAGNESIUM OXIDE 400 MG TABLET PO SCH ×2 (11:36→17:18)
[2018-04-29] MEDS: ASPIRIN 81 MG TABLET, ENT COATED PO SCH (11:36)
[2018-04-29] MEDS: FAMOTIDINE 20 MG TABLET PO SCH ×2 (11:36→21:12)
[2018-04-29] MEDS: FLUTICASONE NASAL SPRAY 50 MCG/SPRY 120 SPRAY/16 GM NASL SCH ×2 (11:36→21:15)
[2018-04-29] MEDS: INSULIN DETEMIR 100 UNIT/ML 3 ML PEN SUBCUT SCH ×2 (11:37→22:50)
[2018-04-29] MEDS: CEFTRIAXONE 1 GM/D5W RTU 1 GM/50 ML RTUPB IV SCH (11:37)
[2018-04-29] MEDS: BUDESONIDE/FORMOTEROL 160-4.5 MCG 60 PUFF/6 GM MDI IH SCH ×2 (11:37→21:14)
[2018-04-29] MEDS: ENOXAPARIN SODIUM INJ 40 MG/0.4 ML DISP.SYRIN SUBCUT SCH (11:47)
--- NOTE | 2018-04-29 11:47 | Operative Report ---
Operative Report DATE OF SURGERY: 04/29/18 PREOPERATIVE DIAGNOSIS: Respiratory failure POSTOPERATIVE DIAGNOSIS: Same OPERATION: Ultrasound directed insertion of right internal jugular vein central venous access catheter interpretation of portable upright chest x-ray SURGEON: JHONY MAHER ANESTHESIA: Local TISSUE REMOVED OR ALTERED: None COMPLICATIONS: None ESTIMATED BLOOD LOSS: Scant INTRAOPERATIVE FINDINGS: See below PROCEDURE: Informed consent was obtained. The patient was placed in Trendelenburg the right neck and chest wall were exposed, and prepped and draped in a sterile fashion. Surgical plan and surgical timeout discussed. The right neck was anesthetized with 1% lidocaine without epinephrine. Using the variable frequency linear transducer, real time, a 18-gauge needle and wire were threaded into the right internal jugular vein. The tract was dilated up, the dilator removed, and the triple-lumen central venous access catheter was threaded into the right internal jugular vein uneventfully to the hub. There was excellent aspiration and flush of saline through all 3 lumens. The catheter was affixed to the skin with a Biopatch and 2-0 silk suture; sterile dressing applied. The patient tolerated the procedure well. There were no complications. Portable upright chest x-ray showed the tip of the catheter in the right atrium; no pneumothorax. Results shared with nursing staff.
--- NOTE | 2018-04-29 11:57 | RADIOLOGY REPORT (SQ) ---
EXAM DESCRIPTION: CHEST SINGLE VIEW COMPLETED DATE/TIME: 04/29/2018 11:42 am REASON FOR STUDY: triple lumen placement COMPARISON: 04/27/2018 EXAM PARAMETERS: NUMBER OF VIEWS: One view. TECHNIQUE: Single frontal radiographic view of the chest acquired. RADIATION DOSE: NA LIMITATIONS: None. FINDINGS: LUNGS AND PLEURA: No opacities, masses or pneumothorax. No pleural effusion. MEDIASTINUM AND HILAR STRUCTURES: No masses. Contour normal. HEART AND VASCULAR STRUCTURES: Heart normal in size. Normal vasculature. BONES: No acute findings. HARDWARE: A right internal jugular catheter has its tip near the right atrium. OTHER: No other significant finding. IMPRESSION: Catheter placement as described. TECHNICAL DOCUMENTATION: JOB ID: [id number] [employer]- All Rights Reserved Reading location - IP/workstation name: [email or web address]
[2018-04-29] MEDS: HYDROCODONE/ACETAMINOPHEN 7.5-325 MG TABLET PO PRN (17:22)
--- NOTE | 2018-04-29 21:07 | Progress Note ---
Provider Note Provider Note: CARDIOLOGY PROGRESS NOTE on 04/29/2018, by Dr. Ngozi Zaidi. SUBJECTIVE: The patient continues to be short of breath. And is using her accessory muscle respiration. She is on a BiPAP. She denies any chest pain or discomfort. There is no palpitations. There is orthopnea present, but there is no PND. Her mild pedal edema is unchanged. The patient remains in sinus rhythm, with no recurrence of atrial flutter or occurrence of atrial fibrillation. There is no TIA CVA symptoms. There is no dizziness or palpitations or near syncope or syncope. PHYSICAL EXAMINATION: The patient is moderately obese, and is in moderate respiratory distress. She is well-groomed. Selected Entries 04/29/18 04/29/18 12:08 12:23 Temperature 97.3 F Temperature Axillary Source Pulse Rate 84 Respiratory 22 H Rate Blood Pressure 145/68 H Blood Pressure 93 Mean BP Location Left Arm BP Position Sitting O2 Sat by Pulse 94 Oximetry Fraction of 45 Inspired Oxygen (FIO2) Oxygen Delivery Bipap Method HEAD: Is atraumatic normocephalic cephalic. EYES: Pupils equal round regular reactive to light and accommodation. There is no conjunctival pallor. There is no scleral icterus. EARS: Tympanic memories are intact. External auditory canals are clear. NOSE: There is no inflammation of the nasal mucous membrane. There is no deviated nasal septum. MOUTH: Mucous membranes of the mouth are moist. Tongue is moist there is no ulcers in the mouth. THERE IS NO BLEEDING FROM THE GUMS. Throat: There is no redness of the oropharynx. There is no exudates. SKIN: There is extensive superficial bruising bruising of the skin causing ecchymosis. There is no petechia. There is no skin rashes. There is no skin lesions. NECK: Is supple. There is no JVD. Carotids are equal there is no bruit. There is no lymphadenopathy. There is no goiter. Trachea cent ral. There is no accessory muscle respiration use, although the patient is on BiPAP. LUNGS: There is diminished air entry prolonged expiration. There is scattered rhonchi and wheezing bilaterally. There is hyperresonance on percussion. HEART: S1-S2 is heard. S1 is of normal intensity. There is no S3 gallop there is no S4 gallop. There is systolic murmur left sternal border and apex there is no rub ABDOMEN: Is obese. There is no hepatosplenomegaly. Bowel sounds are well heard. There is no tender areas masses. EXTREMITIES: Femorals are diminished. There is no femoral bruits. Leg pulses are diminished. There is mild pedal edema bilaterally. There is no DVT or cellulitis. There is no sinus or clubbing. There is no calf tenderness LINUX SYSTEM ENGINEER: The patient is conscious awake alert oriented x3 with no focal deficits. PSYCHIATRIC: The patient judgment and insight are intact her affect is normal. 04/29/18 04/29/18 03:57 06:16 Sodium 138.0 Potassium 4.0 Chloride 88 L Carbon Dioxide 47 H* BUN 32 H Creatinine 0.54 Est GFR (Non-Af Amer) > 60 Glucose 200 H POC Glucose 209 H Calcium 8.8 IMPRESSION/RECOMMENDATION: 1. Paroxysmal Atrial Flutter. Most likely related to the patient's COPD/acute exacerbation and infective bronchitis. Recommend continue oral Cardizem at 60 mg p.o. every 8 hours, and subsequently converting into a long-acting Cardizem preparation. 2. Acute on chronic respiratory failure. Continue current oxygen and current therapy, including BiPAP. 3. ACUTE exacerbation of COPD. Note patient has severe COPD. Continue anti- COPD treatment, including BiPAP. 4. Diabetes mellitus type 2, [id number]. Continue Glucotrol. 5/The patient's corrected Chinedu Vasc2 score is 3. Hence the patient will benefit from chronic anticoagulation. But the patient has significant ecchymosis throughout her skin over the extremities, and after discussions with the patient the patient's daughter, and with Dr. Carrera it has been decided that the patient not a candidate for long-term anti-coagulation therapy. MEDICATIONS reviewed. Management plan discussed with the Dr. Carrera. Cardiac medical decision making is of moderate complexity. Note 40 minutes spent on this patient more than 50% of time spent in direct patient care.
[2018-04-29] MEDS: AZITHROMYCIN 250 MG TABLET PO SCH (21:13)
[2018-04-30] MEDS: IPRATROPIUM/ALBUTEROL 0.5-2.5 MG/3 ML AMPUL NEB SCH ×6 (00:27→19:38)
[2018-04-30] MEDS: BUDESONIDE NEB 0.5 MG/2 ML AMPUL NEB SCH ×4 (01:40→19:38)
[2018-04-30] MEDS: METHYLPREDNISOLONE INJ 125 MG/2 ML SDV IV SCH ×3 (05:05→21:44)
[2018-04-30] MEDS: DOCUSATE SODIUM 100 MG CAPSULE PO SCH ×3 (05:06→21:47)
[2018-04-30] MEDS: DILTIAZEM HCL 60 MG TABLET PO SCH ×3 (05:06→21:00)
[2018-04-30 05:41] LABS: BLOOD UREA NITROGEN 33 mg/dL (7-20); CHLORIDE 87 mmol/L (98-107); GLUCOSE 290 mg/dL (75-110); POTASSIUM 3.9 mmol/L (3.6-5.0)
[2018-04-30 05:56] LABS: CARBON DIOXIDE 51 mmol/L (22-30)
[2018-04-30 06:10] LABS: ANION GAP 0 (5-19)
[2018-04-30 08:37] LABS: ARTERIAL BLOOD BASE EXCESS 20.2 mmol/L; ARTERIAL BLOOD H2CO3 2.16 mmol/L (1.05-1.35); ARTERIAL BLOOD HCO3 49.3 mmol/L (20-24); ARTERIAL BLOOD PH 7.46 (7.35-7.45); ARTERIAL BLOOD PO2 91.6 mmHg (80-100); ARTERIAL BLOOD TOTAL CO2 51.5 mmol/L (21-25)
[2018-04-30 08:40] LABS: ARTERIAL BLOOD FIO2 45%
[2018-04-30] MEDS: FUROSEMIDE 40 MG TABLET PO SCH ×2 (08:40→14:00)
[2018-04-30 08:41] LABS: ARTERIAL BLOOD PCO2 71.7 mmHg (35-45)
[2018-04-30] MEDS: INSULIN LISPRO 100 UNIT/ML 3 ML VIAL SUBCUT PRN ×4 (08:41→21:43)
[2018-04-30] MEDS: GLIPIZIDE 5 MG TABLET PO SCH (08:41)
[2018-04-30] MEDS: GUAIFENESIN 600 MG TABLET.SA PO SCH ×2 (09:06→21:47)
[2018-04-30] MEDS: DIAZEPAM 5 MG TABLET PO PRN ×2 (09:07→21:47)
[2018-04-30] MEDS: FAMOTIDINE 20 MG TABLET PO SCH ×2 (09:07→21:47)
[2018-04-30] MEDS: ASPIRIN 81 MG TABLET, ENT COATED PO SCH (09:07)
[2018-04-30] MEDS: ENOXAPARIN SODIUM INJ 40 MG/0.4 ML DISP.SYRIN SUBCUT SCH (09:07)
[2018-04-30] MEDS: MAGNESIUM OXIDE 400 MG TABLET PO SCH ×2 (09:11→17:32)
[2018-04-30] MEDS: INSULIN DETEMIR 100 UNIT/ML 3 ML PEN SUBCUT SCH ×2 (09:11→21:43)
[2018-04-30] MEDS: FLUTICASONE NASAL SPRAY 50 MCG/SPRY 120 SPRAY/16 GM NASL SCH ×2 (09:11→21:42)
[2018-04-30] MEDS: CEFTRIAXONE 1 GM/D5W RTU 1 GM/50 ML RTUPB IV SCH (11:37)
[2018-04-30] MEDS: HYDROCODONE/ACETAMINOPHEN 7.5-325 MG TABLET PO PRN ×2 (12:45→21:46)
[2018-04-30] MEDS: BUDESONIDE/FORMOTEROL 160-4.5 MCG 60 PUFF/6 GM MDI IH SCH ×2 (12:46→21:45)
--- NOTE | 2018-04-30 18:24 | Progress Note ---
Provider Note Provider Note: CARDIOLOGY PROGRESS NOTE by Dr. Ngozi Zaidi on 04/30/2018. SUBJECTIVE: The patient continues to be short of breath. And continues to wear the BiPAP. She remains in sinus rhythm, with no recurrence of atrial flutter or atrial fibrillation. The patient does have orthopnea.. She denies any chest pain or discomfort. The patient denies any cough or sputum production. There is no TIA CVA symptoms. There is no arrhythmias seen on the monitor. PHYSICAL EXAMINATION: The patient is moderately obese. She is in moderate respiratory distress, with accessory muscle respiration in use. Selected Entries 04/30/18 04/30/18 11:24 11:48 Temperature 97.4 F Temperature Axillary Source Pulse Rate 89 Respiratory 22 H Rate Blood Pressure 132/70 H Blood Pressure 90 Mean BP Location Right Arm BP Position Supine O2 Sat by Pulse 92 Oximetry Fraction of 35 Inspired Oxygen (FIO2) Oxygen Delivery Bipap Method HEAD: Is atraumatic normocephalic cephalic. EYES: Pupils equal round regular reactive to light and accommodation. There is no conjunctival pallor. There is no scleral icterus. EARS: Tympanic memories are intact. External auditory canals are clear. NOSE: There is no inflammation of the nasal mucous membrane. There is no deviated nasal septum. MOUTH: Mucous membranes of the mouth are moist. Tongue is moist there is no ulcers in the mouth. THERE IS NO BLEEDING FROM THE GUMS. Throat: There is no redness of the oropharynx. There is no exudates. SKIN: There is extensive superficial bruising bruising of the skin causing ecchymosis. There is no petechia. There is no skin rashes. There is no skin lesions. NECK: Is supple. There is no JVD. Carotids are equal there is no bruit. There is no lymphadenopathy. There is no goiter. Trachea central. There is no accessory muscle respiration use, although the patient is on BiPAP. LUNGS: There is diminished air entry prolonged expiration. There is scattered rhonchi and wheezing bilaterally. There is hyperresonance on percussion. HEART: S1-S2 is heard. S1 is of normal intensity. There is no S3 gallop there is no S4 gallop. There is systolic murmur left sternal border and apex there is no rub ABDOMEN: Is obese. There is no hepatosplenomegaly. Bowel sounds are well heard. There is no tender areas masses. EXTREMITIES: Femorals are diminished. There is no femoral bruits. Leg pulses are diminished. There is mild pedal edema bilaterally. There is no DVT or cellulitis. There is no sinus or clubbing. There is no calf tenderness EDUCATIONAL INSTITUTION CURATOR: The patient is conscious awake alert oriented x3 with no focal deficits. PSYCHIATRIC: The patient judgment and insight are intact her affect is normal. 04/30/18 04/30/18 04:32 07:55 Carbonic Acid 2.16 H HCO3/H2CO3 Ratio 22:1 ABG pH 7.46 H ABG pCO2 71.7 H* ABG pO2 91.6 ABG HCO3 49.3 H ABG Total CO2 51.5 H ABG O2 Saturation 97.0 ABG Base Excess 20.2 FiO2 45% Sodium 138.0 Potassium 3.9 Chloride 87 L BUN 33 H Creatinine 0.50 L Est GFR (Non-Af Amer) > 60 Glucose 290 H Calcium 9.0 IMPRESSION/RECOMMENDATION: 1. Paroxysmal Atrial Flutter. Most likely related to the patient's COPD/acute exacerbation and infective bronchitis. Recommend continue oral Cardizem at 60 mg p.o. every 8 hours, and subsequently converting into a long-acting Cardizem preparation. 2. Acute on chronic respiratory failure. Continue current oxygen and current therapy, including BiPAP. ABG shows hypercapnia. Also the patient's CO2 is 51. We will start the patient on Diamox. 3. ACUTE exacerbation of COPD. Note patient has severe COPD. Continue anti- COPD treatment, including BiPAP. 4. Diabetes mellitus type 2, [id number]. Continue Glucotrol. 5/The patient's corrected Chinedu Vasc2 score is 3. Hence the patient will benefit from chronic anticoagulation. But the patient has significant ecchymosis throughout her skin over the extremities, and after discussions with the patient the patient's daughter, and with Dr. Carrera it has been decided that the patient is not a candidate for long-term anti-coagulation therapy. MEDICATIONS reviewed. Management plan discussed with the Dr. Carrera. Cardiac medical decision making is of moderate complexity. Note 40 minutes spent on this patient more than 50% of time spent in direct patient care.
[2018-04-30] MEDS ORDERED: BISACODYL 5 MG TABEC PO PRN (19:18)
[2018-04-30] MEDS ORDERED: BISACODYL 10 MG SUPP.RECT PR PRN (19:18)
--- NOTE | 2018-04-30 19:26 | PDOC PROGRESS REPORT ---
Subjective Progress Note for:: 04/30/18 Subjective:: Pleasant 73-year-old patient of Dr. Carrera known to me from her admission. She is now on IMCU. She requires BiPAP consistently. She is still tachypneic. She does report that her breathing feels slightly better. Reason For Visit: EXACERBATION COPD CHRONIC ATRIAL FIBRILLATION Physical Exam Vital Signs: Temp Pulse Resp BP Pulse Ox 97.4 F 81 19 132/70 H 93 04/30/18 11:24 04/30/18 15:59 04/30/18 15:59 04/30/18 11:24 04/30/18 15:59 Intake & Output 04/29/18 04/30/18 05/01/18 06:59 06:59 06:59 Intake Total 250 801 50 Balance 250 801 50 Weight 87.8 kg 88.8 kg General appearance: PRESENT: cooperative, mild distress Head exam: PRESENT: normocephalic Mouth exam: PRESENT: other - BiPAP in place Respiratory exam: PRESENT: clear to auscultation dorita, prolonged expiratory phas, tachypnea. ABSENT: rales, rhonchi, wheezes Cardiovascular exam: PRESENT: RRR, +S1, +S2 GI/Abdominal exam: PRESENT: normal bowel sounds, soft. ABSENT: distended, tenderness Rectal exam: PRESENT: deferred Extremities exam: ABSENT: calf tenderness, pedal edema Neurological exam: PRESENT: alert, awake, oriented to person, oriented to place, oriented to time, oriented to situation, CN II-XII grossly intact Psychiatric exam: PRESENT: anxious, flat affect. ABSENT: agitated Focused psych exam: ABSENT: restlessness Results Laboratory Results: 04/27/18 10:07 04/30/18 04:32 04/30/18 04/30/18 04:32 07:55 Carbonic Acid 2.16 H HCO3/H2CO3 Ratio 22:1 ABG pH 7.46 H ABG pCO2 71.7 H* ABG pO2 91.6 ABG HCO3 49.3 H ABG O2 Saturation 97.0 ABG Base Excess 20.2 FiO2 45% Sodium 138.0 Potassium 3.9 Chloride 87 L Carbon Dioxide 51 H* Anion Gap 0 L BUN 33 H Creatinine 0.50 L Est GFR ( Amer) > 60 Est GFR (Non-Af Amer) > 60 Glucose 290 H Calcium 9.0 04/25/18 15:34 Blood Blood Culture - Final NO GROWTH IN 5 DAYS 04/25/18 16:03 Blood Blood Culture - Final NO GROWTH IN 5 DAYS 04/25/18 13:36 Troponin I < 0.012 Impressions: Chest X-Ray 04/29/18 00:00 IMPRESSION: Catheter placement as described. Assessment & Plan - Diagnosis (1) Acute respiratory failure with hypoxia and hypercapnia Is this a current diagnosis for this admission?: Yes Plan: The patient is continuously on BiPAP with very small breaks for meals. She continues on scheduled and as needed nebulizers. She has scheduled duo nebs and budesonide with Xopenex available if needed. She does have Symbicort ordered. This is her home inhaler. She is on Solu-Medrol 60 mg every 8 hours as well. She uses Valium to help with her significant anxiety. Patient reports feeling slightly better but overall it does not appear that she has been making significant progress unfortunately. (2) Acute chronic obstructive pulmonary disease with respiratory failure Is this a current diagnosis for this admission?: Yes Plan: See above (3) Acute bronchitis Qualifiers: Bronchitis organism: unspecified organism Qualified Code(s): J20.9 - Acute bronchitis, unspecified Is this a current diagnosis for this admission?: Yes Plan: Antibiotics are currently ceftriaxone and azithromycin. (4) Atrial flutter Qualifiers: Atrial flutter type: typical Qualified Code(s): I48.3 - Typical atrial flutter Is this a current diagnosis for this admission?: Yes Plan: Rate controlled on diltiazem. No long-term anticoagulation. She is on DVT prophylaxis. (5) Diabetes Qualifiers: Diabetes mellitus type: type 2 Diabetes mellitus mcfp insulin use: with salvage determiner use Diabetes mellitus complication status: without complication Qualified Code(s): E11.9 - Type 2 diabetes mellitus without complications; Z79.4 - custodial (current) use of insulin Is this a current diagnosis for this admission?: Yes Plan: Accu-Cheks are occasionally high. This is likely due to her steroid therapy. Continue current regimen and adjust insulin dosing based on sliding scale requ irements. - Time Time Spent with patient: Less than 15 minutes Medications reviewed and adjusted accordingly: Yes Anticipated discharge: Home
[2018-04-30] MEDS ORDERED: DILTIAZEM HCL INJ 25 MG/5 ML VIAL ONE (21:15)
[2018-04-30] MEDS: AZITHROMYCIN 250 MG TABLET PO SCH (21:47)
[2018-04-30] MEDS ORDERED: METOPROLOL TARTRATE PF/INJ 5 MG/5 ML SDV IV ONE ×2 (22:30→22:40)
[2018-04-30] MEDS: ACETAZOLAMIDE 250 MG TABLET PO SCH (22:38)
[2018-04-30] MEDS ORDERED: DILTIAZEM HCL INJ 25 MG/5 ML VIAL IV ONE (22:40)
[2018-05-01] MEDS: IPRATROPIUM/ALBUTEROL 0.5-2.5 MG/3 ML AMPUL NEB SCH ×7 (00:20→23:56)
[2018-05-01] MEDS ORDERED: METOPROLOL TARTRATE PF/INJ 5 MG/5 ML SDV IV ONE (02:00)
[2018-05-01] MEDS: METHYLPREDNISOLONE INJ 125 MG/2 ML SDV IV SCH ×3 (05:53→22:24)
[2018-05-01] MEDS: DILTIAZEM HCL 60 MG TABLET PO SCH ×3 (05:54→17:39)
[2018-05-01] MEDS: DOCUSATE SODIUM 100 MG CAPSULE PO SCH ×3 (05:54→22:23)
[2018-05-01] MEDS: FUROSEMIDE 40 MG TABLET PO SCH ×2 (06:00→13:49)
[2018-05-01 07:10] LABS: HEMATOCRIT 33.1 % (36.0-47.0); MEAN CORPUSCULAR HEMOGLOBIN 30.4 pg (27.0-33.4); MEAN CORPUSCULAR HGB CONC 33.2 g/dL (32.0-36.0); MEAN CORPUSCULAR VOLUME 92 fl (80-97); PLATELET COUNT 243 10^3/uL (150-450); RED BLOOD COUNT 3.61 10^6/uL (3.72-5.28); RED CELL DISTRIBUTION WIDTH 15.6 % (11.5-14.0); WHITE BLOOD COUNT 12.8 10^3/uL (4.0-10.5)
[2018-05-01] MEDS: MAG HYDROX/AL HYDROX/SIMETH SUSP 30 ML UDCUP PO PRN (07:12)
[2018-05-01 07:31] LABS: BLOOD UREA NITROGEN 26 mg/dL (7-20); CALCIUM 9.1 mg/dL (8.4-10.2); CHLORIDE 88 mmol/L (98-107); GLUCOSE 198 mg/dL (75-110); POTASSIUM 3.1 mmol/L (3.6-5.0); SODIUM 138.8 mmol/L (137-145)
[2018-05-01 07:46] LABS: ANION GAP 1 (5-19); CARBON DIOXIDE 50 mmol/L (22-30)
[2018-05-01] MEDS: BUDESONIDE NEB 0.5 MG/2 ML AMPUL NEB SCH ×2 (07:55→19:19)
[2018-05-01 07:58] LABS: ABSOLUTE LYMPHOCYTES# (MANUAL) 1.7 10^3/uL (0.5-4.7); ABSOLUTE MONOCYTES # (MANUAL) 0.8 10^3/uL (0.1-1.4); ABSOLUTE NEUTROPHILS# (MANUAL) 10.4 10^3/uL (1.7-8.2); BAND NEUTROPHILS % (MANUAL) 1 % (3-5); BASOPHILS % (MANUAL) 0 % (0-2); EOSINOPHILS % (MANUAL) 0 % (0-6); LYMPHOCYTES % (MANUAL) 13 % (13-45); MONOCYTES % (MANUAL) 6 % (3-13); SEGMENTED NEUTROPHILS % (MAN) 80 % (42-78); TOTAL CELLS COUNTED 100
[2018-05-01 07:59] LABS: ANISOCYTOSIS SLIGHT; PLATELET COMMENT ADEQUATE; POIKILOCYTOSIS 1+; POLYCHROMASIA SLIGHT; STOMATOCYTES 1+
[2018-05-01] MEDS: INSULIN LISPRO 100 UNIT/ML 3 ML VIAL SUBCUT PRN ×4 (08:51→22:22)
[2018-05-01] MEDS: GLIPIZIDE 5 MG TABLET PO SCH (08:52)
[2018-05-01] MEDS: POTASSI CL 20 MEQ/NS 1L 1,000 ML IV PRN (08:53)
[2018-05-01] MEDS: POTASSI CL 20 MEQ/50 ML RIDER 20 MEQ/50 ML RTUPB IV SCH ×2 (08:53→11:35)
[2018-05-01] MEDS: MAGNESIUM OXIDE 400 MG TABLET PO SCH ×2 (09:12→17:39)
[2018-05-01] MEDS: FAMOTIDINE 20 MG TABLET PO SCH ×2 (09:12→22:23)
[2018-05-01] MEDS: ENOXAPARIN SODIUM INJ 40 MG/0.4 ML DISP.SYRIN SUBCUT SCH (09:13)
[2018-05-01] MEDS: ASPIRIN 81 MG TABLET, ENT COATED PO SCH (09:13)
[2018-05-01] MEDS: GUAIFENESIN 600 MG TABLET.SA PO SCH ×2 (09:13→22:23)
[2018-05-01] MEDS: BUDESONIDE/FORMOTEROL 160-4.5 MCG 60 PUFF/6 GM MDI IH SCH ×2 (09:14→22:20)
[2018-05-01] MEDS: CEFTRIAXONE 1 GM/D5W RTU 1 GM/50 ML RTUPB IV SCH (09:15)
[2018-05-01] MEDS: INSULIN DETEMIR 100 UNIT/ML 3 ML PEN SUBCUT SCH ×2 (09:15→22:20)
[2018-05-01] MEDS: FLUTICASONE NASAL SPRAY 50 MCG/SPRY 120 SPRAY/16 GM NASL SCH ×2 (09:16→22:20)
[2018-05-01] MEDS: ACETAZOLAMIDE 250 MG TABLET PO SCH ×2 (11:35→22:23)
[2018-05-01] MEDS: POLYETHYLENE GLYCOL 3350 POWDER 17 GM/1 PACKET PO SCH (11:35)
--- NOTE | 2018-05-01 11:45 | PDOC PROGRESS REPORT ---
Subjective Progress Note for:: 05/01/18 Subjective:: states she doesn't like the bipap. states its making her dry but she's able to talk through it. spoke with daughter at bedside. Reason For Visit: EXACERBATION COPD CHRONIC ATRIAL FIBRILLATION Physical Exam Vital Signs: Temp Pulse Resp BP Pulse Ox 97.4 F 84 14 100/42 L 100 05/01/18 07:56 05/01/18 07:58 05/01/18 07:58 05/01/18 07:56 05/01/18 07:58 Intake & Output 04/30/18 05/01/18 05/02/18 06:59 06:59 06:59 Intake Total 801 790 Balance 801 790 Weight 195 lb 12.328 oz 190 lb 14.725 oz General appearance: PRESENT: no acute distress Eye exam: PRESENT: EOMI, PERRLA. ABSENT: scleral icterus Ear exam: PRESENT: normal external ear exam Neck exam: ABSENT: tracheal deviation Respiratory exam: PRESENT: accessory muscle use, decreased breath sounds - bilaterally in all lung clarke, symmetrical. ABSENT: unlabored Cardiovascular exam: PRESENT: +S1, +S2 Pulses: PRESENT: +2 pedal pulses bilateral GI/Abdominal exam: PRESENT: normal bowel sounds, soft. ABSENT: tenderness Extremities exam: ABSENT: pedal edema Neurological exam: PRESENT: alert, awake, oriented to person, oriented to place, CN II-XII grossly intact Skin exam: PRESENT: dry, warm Results Laboratory Results: 05/01/18 06:00 05/01/18 06:00 05/01/18 05/01/18 06:00 06:00 WBC 12.8 H RBC 3.61 L Hgb 11.0 L Hct 33.1 L MCV 92 MCH 30.4 MCHC 33.2 RDW 15.6 H Plt Count 243 Seg Neutrophils % Not Reportable Lymphocytes % Not Reportable Monocytes % Not Reportable Eosinophils % Not Reportable Basophils % Not Reportable Absolute Neutrophils Not Reportable Absolute Lymphocytes Not Reportable Absolute Monocytes Not Reportable Absolute Eosinophils Not Reportable Absolute Basophils Not Reportable Sodium 138.8 Potassium 3.1 L Chloride 88 L Carbon Dioxide 50 H* Anion Gap 1 L BUN 26 H Creatinine 0.75 Est GFR ( Amer) > 60 Est GFR (Non-Af Amer) > 60 Glucose 198 H Calcium 9.1 Magnesium 2.3 12/31/18 15:34 Blood Blood Culture - Final NO GROWTH IN 5 DAYS 04/25/18 16:03 Blood Blood Culture - Final NO GROWTH IN 5 DAYS 04/25/18 13:36 Troponin I < 0.012 Impressions: Chest X-Ray 04/29/18 00:00 IMPRESSION: Catheter placement as described. Assessment & Plan - Diagnosis (1) Acute chronic obstructive pulmonary disease with respiratory failure Is this a current diagnosis for this admission?: Yes (2) Acute respiratory failure with hypoxia and hypercapnia Is this a current diagnosis for this admission?: Yes (3) Acute bronchitis Qualifiers: Bronchitis organism: unspecified organism Qualified Code(s): J20.9 - Acute bronchitis, unspecified Is this a current diagnosis for this admission?: Yes (4) Atrial flutter Qualifiers: Atrial flutter type: typical Qualified Code(s): I48.3 - Typical atrial flutter Is this a current diagnosis for this admission?: Yes (5) COPD (chronic obstructive pulmonary disease) with emphysema Qualifiers: Emphysema type: centrilobular Qualified Code(s): J43.2 - Centrilobular emphysema Is this a current diagnosis for this admission?: Yes (6) Diabetes Qualifiers: Diabetes mellitus type: type 2 Diabetes mellitus group home insulin use: with intermediate frame tender use Diabetes mellitus complication status: without complication Qualified Code(s): E11.9 - Type 2 diabetes mellitus without complications; Z79.4 - ferry terminal agent (current) use of insulin Is this a current diagnosis for this admission?: Yes - Plan Summary Plan Summary: acute on chronic respiratory failure- 2/2 COPD exacerbation and bronchitis- she's been on azithro and rocephin- will stop Abx now. will monitor for infections. c/w neb treatments and solumedrol for now. she's on Bipap and h aving a difficult time weaning her off it. Dr Galeano is consulted- appreciate his assistance Atrial flutter- cardiology is consulted, appreciate Dr John for his help- c/w cardizem Diabetes- glucose has been running higher than usual due to steroid use- will monitor for now and try to adjust as needed unfortunately she will likely have poor outcome given her severe COPD. weaning her off bipap will be challenging spoke with daughter at bedside and she understands the gravity of the situation. I will have to hold a longer conversation with daughter about her CODE status since she's now full code- but placing someone as herself on the vent if necessary will be very difficult to wean off.
[2018-05-01 14:04] LABS: ARTERIAL BLOOD BASE EXCESS 16.3 mmol/L; ARTERIAL BLOOD H2CO3 1.86 mmol/L (1.05-1.35); ARTERIAL BLOOD HCO3 43.5 mmol/L (20-24); ARTERIAL BLOOD O2 SATURATION 95.3 % (94-98); ARTERIAL BLOOD PCO2 61.7 mmHg (35-45); ARTERIAL BLOOD PH 7.47 (7.35-7.45); ARTERIAL BLOOD PO2 74.8 mmHg (80-100); ARTERIAL BLOOD TOTAL CO2 45.4 mmol/L (21-25)
[2018-05-01 14:06] LABS: ARTERIAL BLOOD FIO2 35%
[2018-05-01 14:18] LABS: BLOOD UREA NITROGEN 28 mg/dL (7-20); CALCIUM 9.4 mg/dL (8.4-10.2); GLUCOSE 226 mg/dL (75-110); POTASSIUM 3.1 mmol/L (3.6-5.0)
[2018-05-01 14:38] LABS: CHLORIDE 88 mmol/L (98-107); SODIUM 138.2 mmol/L (137-145)
[2018-05-01 14:40] LABS: ANION GAP 3 (5-19)
[2018-05-01 14:42] LABS: CARBON DIOXIDE 47 mmol/L (22-30)
[2018-05-01] MEDS: HYDROCODONE/ACETAMINOPHEN 7.5-325 MG TABLET PO PRN (17:44)
--- NOTE | 2018-05-01 19:49 | Progress Note ---
Provider Note Provider Note: CARDIOLOGY PROGRESS NOTE by Dr. Ngozi Zaidi on 05/01/2018. SUBJECTIVE: The patient continues to use BiPAP, and continues to be short of breath, with accessory muscles of respiration use. She has cough but is unable to bring any sputum. Last night she had a brief run of atrial fibrillation, which converted to sinus after the patient was given IV Lopressor. The patient denies any chest pain discomfort. The patient has chronic orthopnea. There is no PND. There is no chest pain discomfort. The patient at present has no palpitations. There is no dizziness or near syncope or syncope. There is no ventricular arrhythmia seen on the monitor. Today there is no recurrence of atrial fibrillation or flutter. There is no TIA CVA symptoms. PHYSICAL EXAMINATION: The patient is mild to moderately obese. She is in no acut she is in moderate respiratory distress, and has accessory muscles of respiration use Selected Entries 05/01/18 12:00 Temperature 97.5 F Temperature Axillary Source Pulse Rate 78 Respiratory 18 Rate Blood Pressure 135/55 H [Upper Arm] Blood Pressure 81 Mean [Upper Arm ] Blood Pressure Sitting Position [Upper Arm] O2 Sat by Pulse 95 Oximetry Oxygen Delivery Bi-pap Method ( includes room air) HEAD: Is atraumatic normocephalic cephalic. EYES: Pupils equal round regular reactive to light and accommodation. There is no conjunctival pallor. There is no scleral icterus. EARS: Tympanic memories are intact. External auditory canals are clear. NOSE: There is no inflammation of the nasal mucous membrane. There is no deviated nasal septum. MOUTH: Mucous membranes of the mouth are moist. Tongue is moist there is no ulcers in the mouth. THERE IS NO BLEEDING FROM THE GUMS. Throat: There is no redness of the oropharynx. There is no exudates. SKIN: There is extensive superficial bruising bruising of the skin causing ecchymosis. There is no petechia. There is no skin rashes. There is no skin lesions. NECK: Is supple. There is no JVD. Carotids are equal there is no bruit. There is no lymphadenopathy. There is no goiter. Trachea central. There is no accessory muscle respiration use, although the patient is on BiPAP. LUNGS: There is diminished air entry prolonged expiration. There is scattered rhonchi and wheezing bilaterally. There is hyperresonance on percussion. HEART: S1-S2 is heard. S1 is of normal intensity. There is no S3 gallop there is no S4 gallop. There is systolic murmur left sternal border and apex there is no rub ABDOMEN: Is obese. There is no hepatosplenomegaly. Bowel sounds are well heard. There is no tender areas masses. EXTREMITIES: Femorals are diminished. There is no femoral bruits. Leg pulses are diminished. There is mild pedal edema bilaterally. There is no DVT or cellulitis. There is no sinus or clubbing. 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 PSYCHIATRIC: The patient judgment and insight are intact her affect is normal. 05/01/18 05/01/18 05/01/18 06:00 13:45 13:45 WBC 12.8 H Hgb 11.0 L Hct 33.1 L MCV 92 MCH 30.4 MCHC 33.2 RDW 15.6 H Plt Count 243 Total Counted 100 Seg Neutrophils % Not Reportable Seg Neuts % (Manual) 80 H Band Neutrophils % 1 L Carbonic Acid 1.86 H HCO3/H2CO3 Ratio 23:1 ABG pH 7.47 H ABG pCO2 61.7 H ABG pO2 74.8 L ABG HCO3 43.5 H ABG Total CO2 45.4 H ABG O2 Saturation 95.3 ABG Base Excess 16.3 FiO2 35% Sodium 138.2 Potassium 3.1 L Chloride 88 L Carbon Dioxide 47 H* Anion Gap 3 L BUN 28 H Creatinine 0.77 Est GFR (Non-Af Amer) > 60 Glucose 226 H Calcium 9.4 IMPRESSION/RECOMMENDATION: 1. Paroxysmal Atrial Flutter. Doubt patient had a brief run of atrial fibrillation last night, and converted to sinus rhythm. Most likely related to the patient's COPD/acute exacerbation and infective bronchitis. Recommend increase oral Cardizem at 60 mg p.o. every 6 hours, and subsequently converting into a long-acting Cardizem preparation. 2. Acute on chronic respiratory failure. Continue current oxygen and current therapy, including BiPAP. ABG today shows hypoxemia and hypercapnia. Will continue the patient on Diamox. 3. ACUTE exacerbation of COPD. Note patient has severe COPD. Continue anti- COPD treatment, including BiPAP. 4. Diabetes mellitus type 2, [id number]. Continue Glucotrol. 5. Hypokalemia: Replace potassium. Medications reviewed. Medication adjustments and management plan was discussed with attending physician on the case. Medical decision making is of high complexity. 40 minutes spent on this patient more than 50% of time spent in direct patient care.
[2018-05-01] MEDS: AZITHROMYCIN 250 MG TABLET PO SCH (22:23)
[2018-05-02] MEDS: DILTIAZEM HCL 60 MG TABLET PO SCH ×5 (00:58→23:50)
[2018-05-02] MEDS: DIAZEPAM 5 MG TABLET PO PRN ×2 (00:59→22:11)
[2018-05-02] MEDS: IPRATROPIUM/ALBUTEROL 0.5-2.5 MG/3 ML AMPUL NEB SCH ×5 (04:44→19:35)
[2018-05-02] MEDS: METHYLPREDNISOLONE INJ 125 MG/2 ML SDV IV SCH (05:05)
[2018-05-02] MEDS: HYDROCODONE/ACETAMINOPHEN 7.5-325 MG TABLET PO PRN (05:06)
[2018-05-02] MEDS: DOCUSATE SODIUM 100 MG CAPSULE PO SCH ×3 (05:06→22:11)
[2018-05-02] MEDS: MAG HYDROX/AL HYDROX/SIMETH SUSP 30 ML UDCUP PO PRN (05:28)
[2018-05-02 06:05] LABS: ARTERIAL BLOOD BASE EXCESS 11.2 mmol/L; ARTERIAL BLOOD FIO2 35%; ARTERIAL BLOOD H2CO3 1.77 mmol/L (1.05-1.35); ARTERIAL BLOOD HCO3 37.7 mmol/L (20-24); ARTERIAL BLOOD O2 SATURATION 99.4 % (94-98); ARTERIAL BLOOD PCO2 58.9 mmHg (35-45); ARTERIAL BLOOD PH 7.42 (7.35-7.45); ARTERIAL BLOOD PO2 199.3 mmHg (80-100); ARTERIAL BLOOD TOTAL CO2 39.5 mmol/L (21-25)
[2018-05-02 06:21] LABS: BLOOD UREA NITROGEN 26 mg/dL (7-20); CALCIUM 9.4 mg/dL (8.4-10.2); CHLORIDE 91 mmol/L (98-107); GLUCOSE 226 mg/dL (75-110); POTASSIUM 3.1 mmol/L (3.6-5.0); SODIUM 136.7 mmol/L (137-145)
[2018-05-02] MEDS: FUROSEMIDE 40 MG TABLET PO SCH ×2 (06:26→13:31)
[2018-05-02 06:28] LABS: ANION GAP 7 (5-19); CARBON DIOXIDE 39 mmol/L (22-30)
[2018-05-02] MEDS: GLIPIZIDE 5 MG TABLET PO SCH (08:45)
[2018-05-02] MEDS: POTASSI CL 20 MEQ/50 ML RIDER 20 MEQ/50 ML RTUPB IV SCH ×2 (08:45→11:02)
[2018-05-02] MEDS: BUDESONIDE NEB 0.5 MG/2 ML AMPUL NEB SCH ×2 (09:05→19:34)
[2018-05-02] MEDS: ACETAZOLAMIDE 250 MG TABLET PO SCH ×2 (11:02→22:11)
[2018-05-02] MEDS: GUAIFENESIN 600 MG TABLET.SA PO SCH ×2 (11:03→22:11)
[2018-05-02] MEDS: FLUTICASONE NASAL SPRAY 50 MCG/SPRY 120 SPRAY/16 GM NASL SCH ×2 (11:03→22:08)
[2018-05-02] MEDS: FAMOTIDINE 20 MG TABLET PO SCH ×2 (11:03→22:11)
[2018-05-02] MEDS: ASPIRIN 81 MG TABLET, ENT COATED PO SCH (11:03)
[2018-05-02] MEDS: MAGNESIUM OXIDE 400 MG TABLET PO SCH ×2 (11:03→17:59)
[2018-05-02] MEDS: POLYETHYLENE GLYCOL 3350 POWDER 17 GM/1 PACKET PO SCH (11:03)
[2018-05-02] MEDS: BUDESONIDE/FORMOTEROL 160-4.5 MCG 60 PUFF/6 GM MDI IH SCH ×2 (11:03→22:08)
[2018-05-02] MEDS: ENOXAPARIN SODIUM INJ 40 MG/0.4 ML DISP.SYRIN SUBCUT SCH (11:10)
--- NOTE | 2018-05-02 12:05 | PDOC PROGRESS REPORT ---
Subjective Progress Note for:: 05/02/18 Subjective:: Patient still on Bi PAP,but her ABG is better her oxygen up to 199 and CO2 down 58. She feels slightly better no BM, and just feels weak. Reason For Visit: EXACERBATION COPD CHRONIC ATRIAL FIBRILLATION Physical Exam Vital Signs: Temp Pulse Resp BP Pulse Ox 97.4 F 74 14 150/59 H 94 05/02/18 07:58 05/02/18 09:05 05/02/18 09:05 05/02/18 07:58 05/02/18 09:05 Intake & Output 05/01/18 05/02/18 05/03/18 06:59 06:59 06:59 Intake Total 790 500 50 Balance 790 500 50 Weight 86.6 kg 86 kg General appearance: PRESENT: mild distress, obese Head exam: PRESENT: atraumatic, normocephalic Eye exam: PRESENT: conjunctiva pink, EOMI, PERRLA. ABSENT: scleral icterus Ear exam: PRESENT: normal external ear exam Mouth exam: PRESENT: moist, tongue midline Neck exam: PRESENT: full ROM. ABSENT: carotid bruit, JVD, lymphadenopathy, thyromegaly Respiratory exam: PRESENT: decreased breath sounds, wheezes Cardiovascular exam: PRESENT: irregular rhythm Pulses: PRESENT: normal dorsalis pedis pul, +2 pedal pulses bilateral Vascular exam: PRESENT: normal capillary refill GI/Abdominal exam: PRESENT: normal bowel sounds, soft. ABSENT: distended, guarding, mass, organolmegaly, rebound, tenderness Rectal exam: PRESENT: deferred Extremities exam: PRESENT: pedal edema Musculoskeletal exam: PRESENT: ambulatory Neurological exam: PRESENT: alert, awake, oriented to person, oriented to place, oriented to time, oriented to situation, CN II-XII grossly intact. ABSENT: motor sensory deficit Psychiatric exam: PRESENT: appropriate affect, normal mood. ABSENT: homicidal ideation, suicidal ideation Skin exam: PRESENT: dry, intact, warm. ABSENT: cyanosis, rash Results Laboratory Results: 05/01/18 06:00 05/02/18 05:20 05/01/18 05/01/18 05/02/18 13:45 13:45 05:20 Carbonic Acid 1.86 H HCO3/H2CO3 Ratio 23:1 ABG pH 7.47 H ABG pCO2 61.7 H ABG pO2 74.8 L ABG HCO3 43.5 H ABG O2 Saturation 95.3 ABG Base Excess 16.3 FiO2 35% Sodium 138.2 136.7 L Potassium 3.1 L 3.1 L Chloride 88 L 91 L Carbon Dioxide 47 H* 39 H Anion Gap 3 L 7 BUN 28 H 26 H Creatinine 0.77 0.73 Est GFR ( Amer) > 60 > 60 Est GFR (Non-Af Amer) > 60 > 60 Glucose 226 H 226 H Calcium 9.4 9.4 05/02/18 05:40 Carbonic Acid 1.77 H HCO3/H2CO3 Ratio 21:1 ABG pH 7.42 ABG pCO2 58.9 H ABG pO2 199.3 H ABG HCO3 37.7 H ABG O2 Saturation 99.4 H ABG Base Excess 11.2 FiO2 35% Sodium Potassium Chloride Carbon Dioxide Anion Gap BUN Creatinine Est GFR ( Amer) Est GFR (Non-Af Amer) Glucose Calcium 04/25/18 13:36 Troponin I < 0.012 Impressions: Chest X-Ray 04/29/18 00:00 IMPRESSION: Catheter placement as described. Assessment & Plan - Diagnosis (1) Acute respiratory failure with hypoxia and hypercapnia Is this a current diagnosis for this admission?: Yes Plan: decrease Fi O2 28, cont. nebulizer, decrease solumedrol 40 mg IV Q8 (2) COPD (chronic obstructive pulmonary disease) with emphysema Qualifiers: Emphysema type: centrilobular Qualified Code(s): J43.2 - Centrilobular emphysema Is this a current diagnosis for this admission?: Yes Plan: cont iv steriods b2 agonist (3) Atrial flutter Qualifiers: Atrial flutter type: typical Qualified Code(s): I48.3 - Typical atrial flutter Is this a current diagnosis for this admission?: Yes Plan: cont. cardiezam (4) Diabetes Qualifiers: Diabetes mellitus type: type 2 Diabetes mellitus longterm insulin use: with longwall foreman use Diabetes mellitus complication status: without complication Qualified Code(s): E11.9 - Type 2 diabetes mellitus without complications; Z79.4 - bed bug exterminator (current) use of insulin Is this a current diagnosis for this admission?: Yes Plan: increase levemir 40 bid - Time Time Spent with patient: 15-24 minutes Medications reviewed and adjusted accordingly: Yes Anticipated discharge: Other Within: Other - Inpatient Certification Medical Necessity: Failure to Improve With Outpatient Therapy, Significant Comorbidiites Make Outpatient Treatment Too Risky, Need for IV Antibiotics Post Hospital Care: D/C Self Pay Collector Documentation
[2018-05-02] MEDS: INSULIN DETEMIR 100 UNIT/ML 3 ML PEN SUBCUT SCH ×2 (12:09→22:09)
[2018-05-02] MEDS: METHYLPREDNISOLONE INJ 40 MG/1 ML SDV IV SCH ×2 (13:30→22:08)
[2018-05-02] MEDS: INSULIN LISPRO 100 UNIT/ML 3 ML VIAL SUBCUT PRN ×3 (13:31→22:10)
--- NOTE | 2018-05-02 15:35 | PDOC PROGRESS REPORT ---
Subjective Progress Note for:: 05/02/18 Subjective:: Slightly improved today Reason For Visit: EXACERBATION COPD CHRONIC ATRIAL FIBRILLATION Physical Exam Vital Signs: Temp Pulse Resp BP Pulse Ox 97.6 F 94 17 133/52 H 91 L 05/02/18 11:57 05/02/18 14:00 05/02/18 12:39 05/02/18 11:57 05/02/18 14:50 Intake & Output 05/01/18 05/02/18 05/03/18 06:59 06:59 06:59 Intake Total 790 500 218 Balance 790 500 218 Weight 86.6 kg 86 kg General appearance: PRESENT: cooperative, disheveled, mild distress, obese Head exam: PRESENT: atraumatic, normocephalic Eye exam: PRESENT: conjunctiva pale, EOMI. ABSENT: nystagmus, scleral icterus Mouth exam: PRESENT: dry mucosa, neck supple, tongue midline Neck exam: ABSENT: carotid bruit, JVD, lymphadenopathy, thyromegaly, tracheal deviation, tracheostomy Respiratory exam: PRESENT: decreased breath sounds, prolonged expiratory phas, rales, rhonchi, wheezes. ABSENT: retraction, stridor, tachypnea Cardiovascular exam: PRESENT: irregular rhythm Pulses: PRESENT: normal radial pulses GI/Abdominal exam: PRESENT: soft. ABSENT: tenderness Extremities exam: PRESENT: pedal edema. ABSENT: calf tenderness, clubbing, joint swelling Neurological exam: PRESENT: awake Psychiatric exam: PRESENT: appropriate affect Skin exam: PRESENT: dry, warm Results Laboratory Results: 05/01/18 06:00 05/02/18 05:20 05/02/18 05/02/18 05:20 05:40 Carbonic Acid 1.77 H HCO3/H2CO3 Ratio 21:1 ABG pH 7.42 ABG pCO2 58.9 H ABG pO2 199.3 H ABG HCO3 37.7 H ABG O2 Saturation 99.4 H ABG Base Excess 11.2 FiO2 35% Sodium 136.7 L Potassium 3.1 L Chloride 91 L Carbon Dioxide 39 H Anion Gap 7 BUN 26 H Creatinine 0.73 Est GFR ( Amer) > 60 Est GFR (Non-Af Amer) > 60 Glucose 226 H Calcium 9.4 04/25/18 13:36 Troponin I < 0.012 Impressions: Chest X-Ray 04/29/18 00:00 IMPRESSION: Catheter placement as described. Assessment & Plan - Diagnosis (1) Acute respiratory failure with hypoxia and hypercapnia Is this a current diagnosis for this admission?: Yes Plan: Unchanged (2) Atrial flutter Qualifiers: Atrial flutter type: typical Qualified Code(s): I48.3 - Typical atrial fl utter Is this a current diagnosis for this admission?: Yes Plan: As per cardiology
--- NOTE | 2018-05-02 21:21 | Progress Note ---
Provider Note Provider Note: CARDIOLOGY PROGRESS NOTE by Dr. Ngozi Zaidi on 05/02/2018. SUBJECTIVE: The patient states her shortness of breath is slightly improved. She still is on the BiPAP. She has mild usage of accessory muscles of respiration compared to yesterday. She states she has a cough which is very scanty and productive greenish sputum. There is no chest pain or discomfort. There is no palpitations. There is no recurrence of atrial fibrillation or flutter. She denies any PND her leg edema is about the same. She does have orthopnea. There is no TIA CVA symptoms. There is no ventricular arrhythmias seen on the monitor, and no recurrence of atrial fibrillation or flutter. PHYSICAL EXAMINATION: The patient is moderately obese. She is in mild distress due to respiratory difficulty. Selected Entries 05/02/18 05/02/18 11:57 12:39 Temperature 97.6 F Temperature Axillary Source Pulse Rate 80 Respiratory 18 Rate Blood Pressure 133/52 H Blood Pressure 79 Mean BP Location Right Arm BP Position Supine O2 Sat by Pulse 93 Oximetry Fraction of 30 Inspired Oxygen (FIO2) Oxygen Delivery Bipap Method HEAD: Is atraumatic normocephalic cephalic. EYES: Pupils equal round regular reactive to light and accommodation. There is no conjunctival pallor. There is no scleral icterus. EARS: Tympanic memories are intact. External auditory canals are clear. NOSE: There is no inflammation of the nasal mucous membrane. There is no deviated nasal septum. MOUTH: Mucous membranes of the mouth are moist. Tongue is moist there is no ulcers in the mouth. THERE IS NO BLEEDING FROM THE GUMS. Throat: There is no redness of the oropharynx. There is no exu dates. SKIN: There is extensive superficial bruising bruising of the skin causing ecchymosis. There is no petechia. There is no skin rashes. There is no skin lesions. NECK: Is supple. There is no JVD. Carotids are equal there is no bruit. There is no lymphadenopathy. There is no goiter. Trachea central. There is no accessory muscle respiration use, although the patient is on BiPAP. LUNGS: There is diminished air entry prolonged expiration. There is there is no rhonchi rales or wheezing today.. There is hyperresonance on percussion. HEART: S1-S2 is heard. S1 is of normal intensity. There is no S3 gallop there is no S4 gallop. There is systolic murmur left sternal border and apex there is no rub ABDOMEN: Is obese. There is no hepatosplenomegaly. Bowel sounds are well heard. There is no tender areas masses. EXTREMITIES: Femorals are diminished. There is no femoral bruits. Leg pulses are diminished. There is mild pedal edema bilaterally. There is no DVT or cellulitis. There is no sinus or clubbing. There is no calf tenderness LOCOMOTIVE ENGINEER ELECTRIC: The patient is conscious awake alert oriented x3 with no focal deficits. PSYCHIATRIC: The patient judgment and insight are intact her affect is normal. 05/02/18 05/02/18 05:20 05:40 Carbonic Acid 1.77 H HCO3/H2CO3 Ratio 21:1 ABG pH 7.42 ABG pCO2 58.9 H ABG pO2 199.3 H ABG HCO3 37.7 H ABG Total CO2 39.5 H ABG O2 Saturation 99.4 H ABG Base Excess 11.2 FiO2 35% Sodium 136.7 L Potassium 3.1 L Chloride 91 L Carbon Dioxide 39 H Anion Gap 7 BUN 26 H Creatinine 0.73 Est GFR (Non-Af Amer) > 60 Glucose 226 H Calcium 9.4 IMPRESSION/RECOMMENDATION: 1. Paroxysmal Atrial Flutter. Doubt patient had a brief run of atrial fibrillation last night, and converted to sinus rhythm. Most likely related to the patient's COPD/acute exacerbation and infective bronchitis. Recommend increase oral Cardizem at 60 mg p.o. every 6 hours, and subsequently converting into a long-acting Cardizem preparation. 2. Acute on chronic respiratory failure. Continue current oxygen and current therapy, including BiPAP. ABG today shows hypoxemia and hypercapnia. Will continue the patient on Diamox. 3. ACUTE exacerbation of COPD. Note patient has severe COPD. Continue anti- COPD treatment, including BiPAP. 4. Diabetes mellitus type 2, [id number]. Continue Glucotrol. 5. Hypokalemia: Replace potassium MEDICATIONS reviewed. Management plan discussed with attending physician Dr. Carrera. Medical decision making is of moderate complexity. 40 minutes spent on the patient with more than 50% of time spent in direct patient care. Will follow. Thank you.
[2018-05-02] MEDS: POTASSI CL 20 MEQ/NS 1L 1,000 ML IV PRN (22:17)
[2018-05-03] MEDS: IPRATROPIUM/ALBUTEROL 0.5-2.5 MG/3 ML AMPUL NEB SCH ×6 (00:31→20:08)
[2018-05-03] MEDS: DILTIAZEM HCL 60 MG TABLET PO SCH ×3 (06:17→17:41)
[2018-05-03] MEDS: METHYLPREDNISOLONE INJ 40 MG/1 ML SDV IV SCH ×3 (06:17→22:28)
[2018-05-03] MEDS: DOCUSATE SODIUM 100 MG CAPSULE PO SCH ×3 (06:17→22:23)
[2018-05-03] MEDS: FUROSEMIDE 40 MG TABLET PO SCH ×2 (06:18→13:04)
[2018-05-03 07:22] LABS: ALANINE AMINOTRANSFERASE 88 U/L (9-52); ALKALINE PHOSPHATASE 67 U/L (38-126); ASPARTATE AMINO TRANSFERASE 60 U/L (14-36); BILIRUBIN,DIRECT 0.2 mg/dL (0.0-0.4); BILIRUBIN,TOTAL 0.6 mg/dL (0.2-1.3); BLOOD UREA NITROGEN 23 mg/dL (7-20); CALCIUM 9.1 mg/dL (8.4-10.2); GLUCOSE 89 mg/dL (75-110); TOTAL PROTEIN 5.6 g/dL (6.3-8.2)
[2018-05-03 07:27] LABS: CARBON DIOXIDE 38 mmol/L (22-30); CHLORIDE 99 mmol/L (98-107); SODIUM 139.6 mmol/L (137-145)
[2018-05-03 07:29] LABS: ANION GAP 3 (5-19)
[2018-05-03 07:30] LABS: POTASSIUM 2.9 mmol/L (3.6-5.0)
[2018-05-03 07:40] LABS: ARTERIAL BLOOD H2CO3 1.39 mmol/L (1.05-1.35); ARTERIAL BLOOD HCO3 32.7 mmol/L (20-24); ARTERIAL BLOOD O2 SATURATION 91.7 % (94-98); ARTERIAL BLOOD PCO2 46.3 mmHg (35-45); ARTERIAL BLOOD PH 7.47 (7.35-7.45); ARTERIAL BLOOD PO2 58.6 mmHg (80-100); ARTERIAL BLOOD TOTAL CO2 34.1 mmol/L (21-25)
[2018-05-03 07:41] LABS: ARTERIAL BLOOD FIO2 28%
[2018-05-03] MEDS: GLIPIZIDE 5 MG TABLET PO SCH (08:38)
[2018-05-03] MEDS: POTASSIUM CHLORIDE 20 MEQ/50 ML RTU IV SCH ×3 (08:38→13:04)
[2018-05-03] MEDS: BUDESONIDE NEB 0.5 MG/2 ML AMPUL NEB SCH ×2 (08:43→20:08)
--- NOTE | 2018-05-03 09:29 | PDOC PROGRESS REPORT ---
Subjective Progress Note for:: 05/03/18 Subjective:: Patient still short of breath there is some accessory muscle usage there is a cough nonproductive no chest pain she had a rough night with sleep. She is still not had a bowel movement but but denies any abdominal pain nausea vomiting. She was seen by physical therapy but she had overall generalized weakness. Reason For Visit: EXACERBATION COPD CHRONIC ATRIAL FIBRILLATION Physical Exam Vital Signs: Temp Pulse Resp BP Pulse Ox 98.1 F 74 20 119/55 L 91 L 05/03/18 07:30 05/03/18 08:43 05/03/18 08:43 05/03/18 07:30 05/03/18 08:43 Intake & Output 05/02/18 05/03/18 05/04/18 06:59 06:59 06:59 Intake Total 1500 718 Balance 1500 718 Weight 86 kg 86.2 kg General appearance: PRESENT: cooperative, mild distress, obese Head exam: PRESENT: atraumatic, normocephalic Eye exam: PRESENT: conjunctiva pink, EOMI, PERRLA. ABSENT: scleral icterus Ear exam: PRESENT: normal external ear exam Mouth exam: PRESENT: moist, tongue midline Throat exam: PRESENT: post pharyngeal erythema Neck exam: PRESENT: full ROM. ABSENT: carotid bruit, JVD, lymphadenopathy, thyromegaly Respiratory exam: PRESENT: decreased breath sounds, wheezes Cardiovascular exam: PRESENT: irregular rhythm Pulses: PRESENT: normal dorsalis pedis pul, +2 pedal pulses bilateral Vascular exam: PRESENT: normal capillary refill GI/Abdominal exam: PRESENT: normal bowel sounds, soft. ABSENT: distended, guarding, mass, organolmegaly, rebound, tenderness Rectal exam: PRESENT: deferred Extremities exam: PRESENT: pedal edema Musculoskeletal exam: PRESENT: ambulatory Neurological exam: PRESENT: alert, awake, oriented to person, oriented to place, oriented to time, oriented to situation, CN II-XII grossly intact. ABSENT: motor sensory deficit Psychiatric exam: PRESENT: appropriate affect, normal mood. ABSENT: homicidal ideation, suicidal ideation Skin exam: PRESENT: dry, intact, warm. ABSENT: cyanosis, rash Results Laboratory Results: 05/01/18 06:00 05/03/18 06:25 05/03/18 05/03/18 06:25 07:30 Carbonic Acid 1.39 H HCO3/H2CO3 Ratio 23:1 ABG pH 7.47 H ABG pCO2 46.3 H ABG pO2 58.6 L ABG HCO3 32.7 H ABG O2 Saturation 91.7 L ABG Base Excess 8.0 FiO2 28% Sodium 139.6 Potassium 2.9 L* Chloride 99 Carbon Dioxide 38 H Anion Gap 3 L BUN 23 H Creatinine 0.68 Est GFR ( Amer) > 60 Est GFR (Non-Af Amer) > 60 Glucose 89 Calcium 9.1 Total Bilirubin 0.6 AST 60 H ALT 88 H Alkaline Phosphatase 67 Total Protein 5.6 L Albumin 3.0 L 04/25/18 13:36 Troponin I < 0.012 Impressions: Chest X-Ray 04/29/18 00:00 IMPRESSION: Catheter placement as described. Assessment & Plan - Diagnosis (1) Acute respiratory failure with hypoxia and hypercapnia Is this a current diagnosis for this admission?: Yes Plan: decrease Fi O2 28, cont. nebulizer, decrease solumedrol 40 mg IV Q8 (2) COPD (chronic obstructive pulmonary disease) with emphysema Qualifiers: Emphysema type: centrilobular Qualified Code(s): J43.2 - Centrilobular em physema Is this a current diagnosis for this admission?: Yes Plan: cont iv steriods b2 agonist (3) Atrial flutter Qualifiers: Atrial flutter type: typical Qualified Code(s): I48.3 - Typical atrial flutter Is this a current diagnosis for this admission?: Yes (4) Diabetes Qualifiers: Diabetes mellitus type: type 2 Diabetes mellitus truck terminal manager insulin use: with truck terminal manager use Diabetes mellitus complication status: without complication Qualified Code(s): E11.9 - Type 2 diabetes mellitus without complications; Z79.4 - truck terminal manager (current) use of insulin Is this a current diagnosis for this admission?: Yes Plan: increase levemir 40 bid (5) Hypokalemia Is this a current diagnosis for this admission?: Yes Plan: Plan we will continue oral potassium supplementation and give her potassium riders 60 M EQ's today and check a BMP 7 in the morning - Time Time Spent with patient: 15-24 minutes Smoking Cessation Education: 3 to 10 minutes Medications reviewed and adjusted accordingly: Yes Anticipated discharge: Other Within: Other - Inpatient Certification I certify that my determination is in accordance with my understanding of Medicare's requirements for reasonable and necessary INPATIENT services [42 CFR 412.3e].: Yes Medical Necessity: Failure to Improve With Outpatient Therapy, Significant Comorbidiites Make Outpatient Treatment Too Risky, Need For IV Fluids Post Hospital Care: D/C Touch Up Carver Documentation - Plan Summary Plan Summary: Had a long discussion with daughter and patient has which expectation goals brent use of her end-stage COPD. Discuss with respiratory for trial of trilogy in preparation for discharge. Also opened up conversation with regard to a either subacute facility or rehabilitation prior to going home.
[2018-05-03] MEDS: INSULIN DETEMIR 100 UNIT/ML 3 ML PEN SUBCUT SCH ×2 (10:38→22:28)
[2018-05-03] MEDS: ENOXAPARIN SODIUM INJ 40 MG/0.4 ML DISP.SYRIN SUBCUT SCH (10:42)
[2018-05-03] MEDS: BUDESONIDE/FORMOTEROL 160-4.5 MCG 60 PUFF/6 GM MDI IH SCH ×2 (10:42→22:25)
[2018-05-03] MEDS: ACETAZOLAMIDE 250 MG TABLET PO SCH ×2 (10:43→22:23)
[2018-05-03] MEDS: FLUTICASONE NASAL SPRAY 50 MCG/SPRY 120 SPRAY/16 GM NASL SCH ×2 (10:43→22:25)
[2018-05-03] MEDS: GUAIFENESIN 600 MG TABLET.SA PO SCH ×2 (10:43→22:24)
[2018-05-03] MEDS: MAGNESIUM OXIDE 400 MG TABLET PO SCH ×2 (10:43→17:41)
[2018-05-03] MEDS: ASPIRIN 81 MG TABLET, ENT COATED PO SCH (10:43)
[2018-05-03] MEDS: FAMOTIDINE 20 MG TABLET PO SCH ×2 (10:43→22:24)
[2018-05-03] MEDS: POLYETHYLENE GLYCOL 3350 POWDER 17 GM/1 PACKET PO SCH (10:43)
--- NOTE | 2018-05-03 14:38 | Progress Note ---
Provider Note Provider Note: CARDIOLOGY PROGRESS NOTE by Dr. Ngozi Zaidi on 05/03/2018. SUBJECTIVE: The patient continues to wear the BiPAP. She states that shortness of breath is much better. She is still using accessory muscles of respiration, but this is to a lesser extent, and lesser intensity. There is no recurrence of atrial fibrillation or flutter. There is no ventricular arrhythmia seen on the monitor. The patient does have orthopnea. She has no PND. There is no chest pain or discomfort. There is no palpitations. There is no TIA CVA symptoms. PHYSICAL EXAMINATION: The patient is moderately obese. She is in mild respiratory distress, but is wearing the BiPAP. She is well-groomed. Selected Entries 05/03/18 05/03/18 05/03/18 07:30 08:43 12:22 Temperature 98.1 F 97.8 F Temperature Axillary Axillary Source Pulse Rate 72 88 Respiratory 21 H Rate Blood Pressure 119/55 L Blood Pressure 76 Mean BP Location Right Arm BP Position Supine O2 Sat by Pulse 91 L Oximetry Oxygen Flow 5 Rate Oxygen Delivery Bipap Method Premature Ventricular Counted Beats 05/03/18 13:00 Temperature Temperature Source Pulse Rate Respiratory Rate Blood Pressure Blood Pressure Mean BP Location BP Position O2 Sat by Pulse Oximetry Oxygen Flow Rate Oxygen Delivery Method Premature 10 Ventricular Counted Beats HEAD: Is atraumatic normocephalic cephalic. EYES: Pupils equal round regular reactive to light and accommodation. There is no conjunctival pallor. There is no scleral icterus. EARS: Tympanic memories are intact. External auditory canals are clear. NOSE: There is no inflammation of the nasal mucous membrane. There is no deviated nasal septum. MOUTH: Mucous membranes of the mouth are moist. Tongue is moist there is no ulcers in the mouth. THERE IS NO BLEEDING FROM THE GUMS. Throat: There is no redness of the oropharynx. There is no exudates. SKIN: There is extensive superficial bruising bruising of the skin causing ecchymosis. There is no petechia. There is no skin rashes. There is no skin lesions. NECK: Is supple. There is no JVD. Carotids are equal there is no bruit. There is no lymphadenopathy. There is no goiter. Trachea central. There is no accessory muscle respiration use, although the patient is on BiPAP. LUNGS: There is diminished air entry prolonged expiration. There is there is no rhonchi rales or wheezing today.. There is hyperresonance on percussion. HEART: S1-S2 is heard. S1 is of normal intensity. There is no S3 gallop there is no S4 gallop. There is systolic murmur left sternal border and apex there is no rub ABDOMEN: Is obese. There is no hepatosplenomegaly. Bowel sounds are well heard. There is no tender areas masses. EXTREMITIES: Femorals are diminished. There is no femoral bruits. Leg pulses are diminished. There is mild pedal edema bilaterally. There is no DVT or cellulitis. There is no sinus or clubbing. There is no calf tenderness GAME BIRD FARMER: The patient is conscious awake alert oriented x3 with no focal deficits. PSYCHIATRIC: The patient judgment and insight are intact her affect is normal. 05/03/18 05/03/18 05/03/18 06:25 07:30 12:22 Carbonic Acid 1.39 H ABG pH 7.47 H ABG pCO2 46.3 H ABG pO2 58.6 L ABG HCO3 32.7 H ABG Total CO2 34.1 H ABG O2 Saturation 91.7 L ABG Base Excess 8.0 FiO2 28% Sodium 139.6 Potassium 2.9 L* Chloride 99 Carbon Dioxide 38 H Anion Gap 3 L BUN 23 H Creatinine 0.68 Est GFR (Non-Af Amer) > 60 Glucose 89 POC Glucose 184 H Calcium 9.1 Total Bilirubin 0.6 Direct Bilirubin 0.2 Neonat Total Bilirubin Not Reportable Neonat Direct Bilirubin Not Reportable Neonat Indirect Bili Not Reportable AST 60 H ALT 88 H Alkaline Phosphatase 67 Total Protein 5.6 L Albumin 3.0 L MPRESSION/RECOMMENDATION: 1. Paroxysmal Atrial Flutter. Doubt patient had a brief run of atrial fibrillation last night, and converted to sinus rhythm. Most likely related to the patient's COPD/acute exacerbation and infective bronchitis. Recommend increase oral Cardizem at 60 mg p.o. every 6 hours, and subsequently converting into a long-acting Cardizem preparation. 2. Acute on chronic respiratory failure. Continue current oxygen and current therapy, including BiPAP. ABG today shows hypoxemia and hypercapnia. Will continue the patient on Diamox. The patient's CO2 has come down to 38 3. ACUTE exacerbation of COPD. Note patient has severe COPD. Continue anti- COPD treatment, including BiPAP. 4. Diabetes mellitus type 2, [id number]. Continue Glucotrol. 5. Hypokalemia: Replace potassium 6. Abnormal liver function tests: Was avoid any hepatotoxic drugs. MEDICATIONS reviewed. Management plan discussed with attending physician Dr. Carrera. Medical decision making is of moderate complexity. 40 minutes spent on the patient with more than 50% of time spent in direct patient care. Will follow. Thank you.
[2018-05-03] MEDS: POTASSI CL 20 MEQ/NS 1L 1,000 ML IV PRN (17:41)
[2018-05-03] MEDS: INSULIN LISPRO 100 UNIT/ML 3 ML VIAL SUBCUT PRN (22:28)
[2018-05-03] MEDS: DIAZEPAM 5 MG TABLET PO PRN (22:31)
[2018-05-04] MEDS: IPRATROPIUM/ALBUTEROL 0.5-2.5 MG/3 ML AMPUL NEB SCH ×6 (00:11→19:35)
[2018-05-04] MEDS: DILTIAZEM HCL 60 MG TABLET PO SCH ×4 (00:12→18:45)
[2018-05-04] MEDS: POTASSI CL 20 MEQ/NS 1L 1,000 ML IV PRN ×2 (03:33→21:50)
[2018-05-04] MEDS: METHYLPREDNISOLONE INJ 40 MG/1 ML SDV IV SCH ×3 (05:46→21:56)
[2018-05-04] MEDS: DOCUSATE SODIUM 100 MG CAPSULE PO SCH ×3 (05:47→21:56)
[2018-05-04] MEDS: FUROSEMIDE 40 MG TABLET PO SCH ×2 (07:20→14:37)
[2018-05-04] MEDS: MAG HYDROX/AL HYDROX/SIMETH SUSP 30 ML UDCUP PO PRN (08:10)
[2018-05-04] MEDS: GLIPIZIDE 5 MG TABLET PO SCH (08:10)
[2018-05-04] MEDS: INSULIN LISPRO 100 UNIT/ML 3 ML VIAL SUBCUT PRN ×2 (08:10→14:35)
[2018-05-04] MEDS: BUDESONIDE NEB 0.5 MG/2 ML AMPUL NEB SCH ×2 (08:23→19:35)
[2018-05-04 08:24] LABS: ARTERIAL BLOOD BASE EXCESS 7.1 mmol/L; ARTERIAL BLOOD H2CO3 1.73 mmol/L (1.05-1.35); ARTERIAL BLOOD HCO3 33.7 mmol/L (20-24); ARTERIAL BLOOD O2 SATURATION 92.4 % (94-98); ARTERIAL BLOOD PCO2 57.6 mmHg (35-45); ARTERIAL BLOOD PH 7.39 (7.35-7.45); ARTERIAL BLOOD PO2 66.3 mmHg (80-100); ARTERIAL BLOOD TOTAL CO2 35.5 mmol/L (21-25)
[2018-05-04 08:33] LABS: ARTERIAL BLOOD FIO2 5L
[2018-05-04 09:07] LABS: BLOOD UREA NITROGEN 22 mg/dL (7-20); CALCIUM 8.5 mg/dL (8.4-10.2); CHLORIDE 106 mmol/L (98-107); GLUCOSE 222 mg/dL (75-110); POTASSIUM 3.2 mmol/L (3.6-5.0)
[2018-05-04 09:14] LABS: CARBON DIOXIDE 36 mmol/L (22-30); SODIUM 143.2 mmol/L (137-145)
[2018-05-04 09:32] LABS: ANION GAP 1 (5-19)
[2018-05-04] MEDS: FAMOTIDINE 20 MG TABLET PO SCH ×2 (10:27→21:55)
[2018-05-04] MEDS: ACETAZOLAMIDE 250 MG TABLET PO SCH ×2 (10:27→21:55)
[2018-05-04] MEDS: ASPIRIN 81 MG TABLET, ENT COATED PO SCH (10:28)
[2018-05-04] MEDS: GUAIFENESIN 600 MG TABLET.SA PO SCH ×2 (10:28→21:55)
[2018-05-04] MEDS: MAGNESIUM OXIDE 400 MG TABLET PO SCH ×2 (10:28→18:45)
[2018-05-04] MEDS: POLYETHYLENE GLYCOL 3350 POWDER 17 GM/1 PACKET PO SCH (10:28)
[2018-05-04] MEDS: BUDESONIDE/FORMOTEROL 160-4.5 MCG 60 PUFF/6 GM MDI IH SCH ×2 (10:28→22:02)
[2018-05-04] MEDS: FLUTICASONE NASAL SPRAY 50 MCG/SPRY 120 SPRAY/16 GM NASL SCH ×2 (10:29→22:01)
[2018-05-04] MEDS: INSULIN DETEMIR 100 UNIT/ML 3 ML PEN SUBCUT SCH ×2 (10:29→22:00)
[2018-05-04] MEDS: ENOXAPARIN SODIUM INJ 40 MG/0.4 ML DISP.SYRIN SUBCUT SCH (10:29)
--- NOTE | 2018-05-04 12:03 | PDOC PROGRESS REPORT ---
Subjective Progress Note for:: 05/04/18 Subjective:: She is more short of breath today than yesterday for unforeseen reason she was only on nasal cannula at 5 L last night and not on her trilogy or the Pap machine. She did have a bowel movement she is afebrile she did not have any tachyarrhythmias she is not coughing. Reason For Visit: EXACERBATION COPD CHRONIC ATRIAL FIBRILLATION Physical Exam Vital Signs: Temp Pulse Resp BP Pulse Ox 97.9 F 84 19 141/48 H 87 L 05/04/18 07:24 05/04/18 08:23 05/04/18 08:23 05/04/18 07:24 05/04/18 08:23 Intake & Output 05/03/18 05/04/18 05/05/18 06:59 06:59 06:59 Intake Total 718 2417 Output Total 400 Balance 718 2016 Weight 86.2 kg 85.4 kg General appearance: PRESENT: mild distress, obese Head exam: PRESENT: atraumatic, normocephalic Eye exam: PRESENT: conjunctiva pink, EOMI, PERRLA. ABSENT: scleral icterus Ear exam: PRESENT: normal external ear exam Mouth exam: PRESENT: moist, tongue midline Neck exam: PRESENT: full ROM. ABSENT: carotid bruit, JVD, lymphadenopathy, thyromegaly Respiratory exam: PRESENT: decreased breath sounds Cardiovascular exam: PRESENT: irregular rhythm Pulses: PRESENT: normal dorsalis pedis pul, +2 pedal pulses bilateral Vascular exam: PRESENT: normal capillary refill GI/Abdominal exam: PRESENT: normal bowel sounds, soft. ABSENT: distended, guarding, mass, organolmegaly, rebound, tenderness Extremities exam: PRESENT: pedal edema Neurological exam: PRESENT: alert, awake, oriented to person, oriented to place, oriented to time, oriented to situation, CN II-XII grossly intact. ABSENT: motor sensory deficit Psychiatric exam: PRESENT: appropriate affect, normal mood. ABSENT: homicidal ideation, suicidal ideation Skin exam: PRESENT: dry, intact, warm. ABSENT: cyanosis, rash Results Laboratory Results: 05/01/18 06:00 05/04/18 07:50 05/04/18 05/04/18 07:50 07:55 Carbonic Acid 1.73 H HCO3/H2CO3 Ratio 19:1 ABG pH 7.39 ABG pCO2 57.6 H ABG pO2 66.3 L ABG HCO3 33.7 H ABG O2 Saturation 92.4 L ABG Base Excess 7.1 FiO2 5L Sodium 143.2 Potassium 3.2 L Chloride 106 Carbon Dioxide 36 H Anion Gap 1 L BUN 22 H Creatinine 0.59 Est GFR ( Amer) > 60 Est GFR (Non-Af Amer) > 60 Glucose 222 H Calcium 8.5 05/01/18 07:30 Sputum Gram Stain - Final 05/01/18 07:30 Sputum Sputum Culture - Final Corynebacterium Striatum Reduced Normal [place] 04/25/18 13:36 Troponin I < 0.012 Impressions: Chest X-Ray 04/29/18 00:00 IMPRESSION: Catheter placement as described. Assessment & Plan - Diagnosis (1) Acute respiratory failure with hypoxia and hypercapnia Is this a current diagnosis for this admission?: Yes Plan: decrease Fi O2 28, cont. nebulizer, decrease solumedrol 40 mg IV Q8 (2) COPD (chronic obstructive pulmonary disease) with emphysema Qualifiers: Emphysema type: centrilobular Qualified Code(s): J43.2 - Centrilobular emphysema Is this a current diagnosis for this admission?: Yes Plan: cont iv steriods b2 agonist (3) Atrial flutter Qualifiers: Atrial flutter type: typical Qualified Code(s): I48.3 - Typical atrial flutter Is this a current diagnosis for this admission?: Yes Plan: cont. cardiezam (4) Diabetes Qualifiers: Diabetes mellitus type: type 2 Diabetes mellitus ferry terminal supervisor insulin use: with ferry terminal supervisor use Diabetes mellitus complication status: without complication Qualified Code(s): E11.9 - Type 2 diabetes mellitus without complications; Z79.4 - [facility] (current) use of insulin Is this a current diagnosis for this admission?: Yes Plan: increase levemir 40 bid (5) Hypokalemia Is this a current diagnosis for this admission?: Yes Plan: Plan we will continue oral potassium supplementation and give her potassium riders 60 M EQ's today and check a BMP 7 in the morning - Time Time Spent with patient: 15-24 minutes Medications reviewed and adjusted accordingly: Yes Anticipated discharge: Other Within: Other - Inpatient Certification I certify that my determination is in accordance with my understanding of Medicare's requirements for reasonable and necessary INPATIENT services [42 CFR 412.3e].: Yes Medical Necessity: Failure to Improve With Outpatient Therapy, Significant Comorbidiites Make Outpatient Treatment Too Risky Post Hospital Care: D/C Preparation Department Supervisor Documentation - Plan Summary Plan Summary: Case was discussed with Dr. Galeano we will reattempt the trilogy get an ABG l cristina discussion with family regarding end-stage COPD expectations and reality as in her ability to improve we will continue IV steroids, beta-2 agonist, Spiriva, inhaled steroids, Daliresp.
[2018-05-04 12:48] LABS: ARTERIAL BLOOD BASE EXCESS 7.3 mmol/L; ARTERIAL BLOOD H2CO3 1.47 mmol/L (1.05-1.35); ARTERIAL BLOOD HCO3 32.7 mmol/L (20-24); ARTERIAL BLOOD O2 SATURATION 87.6 % (94-98); ARTERIAL BLOOD PH 7.44 (7.35-7.45); ARTERIAL BLOOD PO2 51.9 mmHg (80-100); ARTERIAL BLOOD TOTAL CO2 34.2 mmol/L (21-25)
[2018-05-04 12:49] LABS: ARTERIAL BLOOD FIO2 6L
--- NOTE | 2018-05-04 14:20 | RADIOLOGY REPORT (SQ) ---
EXAM DESCRIPTION: CHEST SINGLE VIEW COMPLETED DATE/TIME: 05/04/2018 2:00 pm REASON FOR STUDY: sob COMPARISON: 12. EXAM PARAMETERS: NUMBER OF VIEWS: One view. TECHNIQUE: Single frontal radiographic view of the chest acquired. RADIATION DOSE: NA LIMITATIONS: Over exposure FINDINGS: LUNGS AND PLEURA: Emphysematous change with hyperinflation and chronic interstitial change s, stable no. Noted definite new airspace disease. No pleural effusion or pneumothorax. MEDIASTINUM AND HILAR STRUCTURES: No masses. Contour normal. HEART AND VASCULAR STRUCTURES: Heart normal in size. Normal vasculature. BONES: No acute findings. HARDWARE: Right internal jugular central venous catheter tip overlies right atrium. OTHER: No other significant finding. IMPRESSION: Stable chronic emphysematous changes without evidence of acute cardiopulmonary process. TECHNICAL DOCUMENTATION: JOB ID: [id number] [employer]- All Rights Reserved Reading location - IP/workstation name: [email or web address]
[2018-05-04] MEDS: POTASSI CL 20 MEQ/50 ML RIDER 20 MEQ/50 ML RTUPB IV SCH ×3 (14:35→19:05)
[2018-05-04] MEDS: DIAZEPAM 5 MG TABLET PO PRN (14:36)
--- NOTE | 2018-05-04 20:23 | Progress Note ---
Provider Note Provider Note: CARDIOLOGY PROGRESS NOTE by Dr. Ngozi Zaidi on 05/04/2018. SUBJECTIVE: The patient continues to be short of breath. In fact she is using more of her accessory muscles of respiration today. She continues to be on BiPAP. There is no chest pain or discomfort. There is orthopnea present. There is no increase in her leg edema. There is no PND. There is no chest pain or discomfort. There is no recurrence of atrial fibrillation. There is no arrhythmias seen on the monitor. There is no TIA CVA symptoms. PHYSICAL EXAMINATION: The patient is moderately obese. She is in distress due to respiratory difficulty. Selected Entries 05/04/18 05/04/18 11:32 12:28 Temperature 98.4 F Pulse Rate 86 Respiratory 20 Rate Blood Pressure 124/55 L Blood Pressure 78 Mean BP Location Right Arm BP Position Supine O2 Sat by Pulse 99 Oximetry Fraction of 44 Inspired Oxygen (FIO2) Oxygen Flow 6 Rate Oxygen Delivery Bipap Method HEAD: Is atraumatic normocephalic cephalic. EYES: Pupils equal round regular reactive to light and accommodation. There is no conjunctival pallor. There is no scleral icterus. EARS: Tympanic memories are intact. External auditory canals are clear. NOSE: There is no inflammation of the nasal mucous membrane. There is no deviated nasal septum. MOUTH: Mucous membranes of the mouth are moist. Tongue is moist there is no ulcers in the mouth. THERE IS NO BLEEDING FROM THE GUMS. Throat: There is no redness of the oropharynx. There is no exudates. SKIN: There is extensive superficial bruising bruising of the skin causing ecchymosis. There is no petechia. There is no skin rashes. There is no skin lesions. NECK: Is supple. There is no JVD. Carotids are equal there is no bruit. There is no lymphadenopathy. There is no goiter. Trachea central. There is no accessory muscle respiration use, although the patient is on BiPAP. LUNGS: There is diminished air entry prolonged expiration. There is there is no rhonchi rales or wheezing today.. There is hyperresonance on percussion. HEART: S1-S2 is heard. S1 is of normal intensity. There is no S3 gallop there is no S4 gallop. There is systolic murmur left sternal border and apex there is no rub ABDOMEN: Is obese. There is no hepatosplenomegaly. Bowel sounds are well heard. There is no tender areas masses. EXTREMITIES: Femorals are diminished. There is no femoral bruits. Leg pulses are diminished. There is mild pedal edema bilaterally. There is no DVT or cellulitis. There is no sinus or clubbing. There is no calf tenderness ASSET PROTECTION GREETER: The patient is conscious awake alert oriented x3 with no focal deficits. PSYCHIATRIC: The patient zina gment and insight are intact her affect is normal. 05/04/18 05/04/18 07:50 12:28 Carbonic Acid 1.47 H HCO3/H2CO3 Ratio 22:1 ABG pH 7.44 ABG pCO2 49.0 H ABG pO2 51.9 L ABG HCO3 32.7 H ABG Total CO2 34.2 H ABG O2 Saturation 87.6 L ABG Base Excess 7.3 FiO2 6L Sodium 143.2 Potassium 3.2 L Chloride 106 Carbon Dioxide 36 H Anion Gap 1 L BUN 22 H Creatinine 0.59 Est GFR (Non-Af Amer) > 60 Glucose 222 H Calcium 8.5 CHEST X-ray: Shows chronic emphysematous changes. No acute cardiopulmonary process. MPRESSION/RECOMMENDATION: 1. Paroxysmal Atrial Flutter. Doubt patient had a brief run of atrial fibrillation last night, and converted to sinus rhythm. Most likely related to the patient's COPD/acute exacerbation and infective bronchitis. Recommend increase oral Cardizem at 60 mg p.o. every 6 hours, and subsequently converting into a long-acting Cardizem preparation. 2. Acute on chronic respiratory failure. Continue current oxygen and current therapy, including BiPAP. ABG today shows hypoxemia and hypercapnia. Will continue the patient on Diamox. The patient's CO2 has come down to 38 3. ACUTE exacerbation of COPD. Note patient has severe COPD. Continue anti- COPD treatment, including BiPAP. 4. Diabetes mellitus type 2, [id number]. Continue Glucotrol. 5. Hypokalemia: Replace potassium 6. Abnormal liver function tests: Was avoid any hepatotoxic drugs.. We will recheck the patient's liver function test in the morning. MEDICATIONS reviewed. Management plan discussed with attending physician Dr. Carrera. Medical decision making is of moderate complexity. 40 minutes spent on the patient with more than 50% of time spent in direct patient care. Will follow. Thank you.
[2018-05-04] MEDS: HYDROCODONE/ACETAMINOPHEN 7.5-325 MG TABLET PO PRN (21:57)
[2018-05-05] MEDS: IPRATROPIUM/ALBUTEROL 0.5-2.5 MG/3 ML AMPUL NEB SCH ×7 (00:05→23:59)
[2018-05-05] MEDS: DILTIAZEM HCL 60 MG TABLET PO SCH ×2 (00:25→06:04)
[2018-05-05] MEDS: DOCUSATE SODIUM 100 MG CAPSULE PO SCH (06:04)
[2018-05-05] MEDS: METHYLPREDNISOLONE INJ 40 MG/1 ML SDV IV SCH (06:05)
[2018-05-05 06:50] LABS: ALANINE AMINOTRANSFERASE 120 U/L (9-52); ALBUMIN 3.5 g/dL (3.5-5.0); ALKALINE PHOSPHATASE 64 U/L (38-126); ASPARTATE AMINO TRANSFERASE 68 U/L (14-36); BILIRUBIN,DIRECT 0.3 mg/dL (0.0-0.4); BILIRUBIN,TOTAL 0.7 mg/dL (0.2-1.3); BLOOD UREA NITROGEN 27 mg/dL (7-20); CALCIUM 8.5 mg/dL (8.4-10.2); GLUCOSE 93 mg/dL (75-110); POTASSIUM 3.3 mmol/L (3.6-5.0); TOTAL PROTEIN 5.7 g/dL (6.3-8.2)
[2018-05-05 06:55] LABS: CARBON DIOXIDE 32 mmol/L (22-30); CHLORIDE 110 mmol/L (98-107); SODIUM 145.8 mmol/L (137-145)
[2018-05-05 07:07] LABS: ANION GAP 4 (5-19)
[2018-05-05] MEDS: BUDESONIDE NEB 0.5 MG/2 ML AMPUL NEB SCH ×2 (07:48→19:44)
[2018-05-05 08:34] VITALS: BP 137/59
[2018-05-05] MEDS: FUROSEMIDE 40 MG TABLET PO SCH (08:56)
[2018-05-05] MEDS: POTASSI CL 20 MEQ/50 ML RIDER 20 MEQ/50 ML RTUPB IV SCH ×2 (08:57→11:02)
[2018-05-05] MEDS: GLIPIZIDE 5 MG TABLET PO SCH (08:57)
[2018-05-05] MEDS: POTASSI CL 20 MEQ/NS 1L 1,000 ML IV PRN (08:57)
[2018-05-05] MEDS: MAGNESIUM OXIDE 400 MG TABLET PO SCH (09:08)
[2018-05-05] MEDS: GUAIFENESIN 600 MG TABLET.SA PO SCH (09:08)
[2018-05-05] MEDS: ASPIRIN 81 MG TABLET, ENT COATED PO SCH (09:08)
[2018-05-05] MEDS: ACETAZOLAMIDE 250 MG TABLET PO SCH (09:08)
[2018-05-05] MEDS: FAMOTIDINE 20 MG TABLET PO SCH (09:08)
[2018-05-05] MEDS: POLYETHYLENE GLYCOL 3350 POWDER 17 GM/1 PACKET PO SCH (09:09)
[2018-05-05] MEDS: INSULIN DETEMIR 100 UNIT/ML 3 ML PEN SUBCUT SCH (09:09)
[2018-05-05] MEDS: BUDESONIDE/FORMOTEROL 160-4.5 MCG 60 PUFF/6 GM MDI IH SCH (09:09)
[2018-05-05] MEDS: FLUTICASONE NASAL SPRAY 50 MCG/SPRY 120 SPRAY/16 GM NASL SCH (09:09)
[2018-05-05] MEDS: ENOXAPARIN SODIUM INJ 40 MG/0.4 ML DISP.SYRIN SUBCUT SCH (09:11)
[2018-05-05] MEDS ORDERED: MORPHINE SULFATE 10 MG/ML INJ IV PRN (10:35)
--- NOTE | 2018-05-05 10:41 | PDOC PROGRESS REPORT ---
Subjective Progress Note for:: 05/05/18 Subjective:: increaingO2 demand increasing resp distress Reason For Visit: EXACERBATION COPD CHRONIC ATRIAL FIBRILLATION Physical Exam Vital Signs: Temp Pulse Resp BP Pulse Ox 98.3 F 87 22 H 137/59 H 95 05/05/18 08:05 05/05/18 08:05 05/05/18 08:05 05/05/18 08:05 05/05/18 08:05 Intake & Output 05/04/18 05/05/18 05/06/18 06:59 06:59 06:59 Intake Total 2417 1450 1000 Output Total 400 1050 Balance 2017 400 1000 Weight 85.4 kg 85.4 kg General appearance: PRESENT: disheveled, mild distress, obese Head exam: PRESENT: atraumatic, normocephalic Eye exam: PRESENT: conjunctiva pale, EOMI. ABSENT: nystagmus, scleral icterus Mouth exam: PRESENT: dry mucosa, neck supple, tongue midline Neck exam: ABSENT: carotid bruit, JVD, lymphadenopathy, thyromegaly, tracheal deviation, tracheostomy Respiratory exam: PRESENT: accessory muscle use, crackles, decreased breath sounds, prolonged expiratory phas, retraction, rhonchi, symmetrical, tachypnea, wheezes. ABSENT: stridor, unlabored Cardiovascular exam: PRESENT: RRR, +S1, +S2 Pulses: PRESENT: normal radial pulses GI/Abdominal exam: PRESENT: soft Extremities exam: ABSENT: calf tenderness, clubbing, joint swelling Musculoskeletal exam: ABSENT: ambulatory, deformity, dislocation Neurological exam: PRESENT: awake Psychiatric exam: PRESENT: appropriate affect Skin exam: PRESENT: dry, warm Results Laboratory Results: 05/01/18 06:00 05/05/18 06:00 05/04/18 05/05/18 12:28 06:00 Carbonic Acid 1.47 H HCO3/H2CO3 Ratio 22:1 ABG pH 7.44 ABG pCO2 49.0 H ABG pO2 51.9 L ABG HCO3 32.7 H ABG O2 Saturation 87.6 L ABG Base Excess 7.3 FiO2 6L Sodium 145.8 H Potassium 3.3 L Chloride 110 H Carbon Dioxide 32 H Anion Gap 4 L BUN 27 H Creatinine 0.57 Est GFR ( Amer) > 60 Est GFR (Non-Af Amer) > 60 Glucose 93 Calcium 8.5 Magnesium 2.9 H Total Bilirubin 0.7 AST 68 H ALT 120 H Alkaline Phosphatase 64 Total Protein 5.7 L Albumin 3.5 04/25/18 13:36 Troponin I < 0.012 Impressions: Chest X-Ray 05/04/18 00:00 IMPRESSION: Stable chronic emphysematous changes without evidence of acute cardiopulmonary process. Assessment & Plan - Diagnosis (1) Acute respiratory failure with hypoxia and hypercapnia Is this a current diagnosis for this admission?: Yes Plan: discussed with patient,daughter and Dr Kessler will transition to comfort care (2) Atrial flutter Qualifiers: Atrial flutter type: typical Qualified Code(s): I48.3 - Typical atrial flutter Is this a current diagnosis for this admission?: Yes
[2018-05-05] MEDS ORDERED: MIDAZOLAM 2 MG/2 ML INJ IV SCH (10:45)
[2018-05-05] MEDS ORDERED: MORPHINE SULFATE 10 MG/ML INJ ONE (10:57)
[2018-05-05] MEDS: MORPHINE SULFATE 10 MG/ML INJ IV SCH ×6 (11:00→22:16)
--- NOTE | 2018-05-05 11:59 | PDOC PROGRESS REPORT ---
Subjective Progress Note for:: 05/05/18 Subjective:: Patient today seen not doing good, increased respiration, more accessory muscle usage during evening increased oxygen need. She is not eating per daughter. Reason For Visit: EXACERBATION COPD CHRONIC ATRIAL FIBRILLATION Physical Exam Vital Signs: Temp Pulse Resp BP Pulse Ox 98.3 F 87 22 H 137/59 H 95 05/05/18 08:05 05/05/18 08:05 05/05/18 08:05 05/05/18 08:05 05/05/18 08:05 Intake & Output 05/04/18 05/05/18 05/06/18 06:59 06:59 06:59 Intake Total 2417 1450 1050 Output Total 400 1050 Balance 2017 400 1050 Weight 85.4 kg 85.4 kg General appearance: PRESENT: obese, severe distress Head exam: PRESENT: atraumatic, normocephalic Eye exam: PRESENT: conjunctiva pink, EOMI, PERRLA. ABSENT: scleral icterus Ear exam: PRESENT: normal external ear exam Mouth exam: PRESENT: moist, tongue midline Neck exam: PRESENT: full ROM. ABSENT: carotid bruit, JVD, lymphadenopathy, thyromegaly Respiratory exam: PRESENT: accessory muscle use, decreased breath sounds Cardiovascular exam: PRESENT: irregular rhythm Pulses: PRESENT: normal dorsalis pedis pul, +2 pedal pulses bilateral Vascular exam: PRESENT: normal capillary refill GI/Abdominal exam: PRESENT: normal bowel sounds, soft. ABSENT: distended, guarding, mass, organolmegaly, rebound, tenderness Rectal exam: PRESENT: deferred Extremities exam: PRESENT: pedal edema Neurological exam: PRESENT: alert, awake, oriented to person Psychiatric exam: PRESENT: appropriate affect, normal mood. ABSENT: homicidal ideation, suicidal ideation Skin exam: PRESENT: dry, intact, warm. ABSENT: cyanosis, rash Results Laboratory Results: 05/01/18 06:00 05/05/18 06:00 05/04/18 05/05/18 12:28 06:00 Carbonic Acid 1.47 H HCO3/H2CO3 Ratio 22:1 ABG pH 7.44 ABG pCO2 49.0 H ABG pO2 51.9 L ABG HCO3 32.7 H ABG O2 Saturation 87.6 L ABG Base Excess 7.3 FiO2 6L Sodium 145.8 H Potassium 3.3 L Chloride 110 H Carbon Dioxide 32 H Anion Gap 4 L BUN 27 H Creatinine 0.57 Est GFR ( Amer) > 60 Est GFR (Non-Af Amer) > 60 Glucose 93 Calcium 8.5 Magnesium 2.9 H Total Bilirubin 0.7 AST 68 H ALT 120 H Alkaline Phosphatase 64 Total Protein 5.7 L Albumin 3.5 04/25/18 13:36 Troponin I < 0.012 Impressions: Chest X-Ray 05/04/18 00:00 IMPRESSION: Stable chronic emphysematous changes without evidence of acute cardiopulmonary process. Assessment & Plan - Diagnosis (1) Acute respiratory failure with hypoxia and hypercapnia Is this a current diagnosis for this admission?: Yes Plan: Plan long olga discussion had with daughter regarding progressive failure in light full aggressive treatment option is intubation and ventilator , but daughter states that patient did not want that, explain can give comfort care, will discuss with DR. Galeano. (2) COPD (chronic obstructive pulmonary disease) with emphysema Qualifiers: Emphysema type: centrilobular Qualified Code(s): J43.2 - Centrilobular emphysema Is this a current diagnosis for this admission?: Yes Plan: cont iv steriods b2 agonist (3) Atrial flutter Qualifiers: Atrial flutter type: typical Qualified Code(s): I48.3 - Typical atrial flutter Is this a current diagnosis for this admission?: Yes Plan: cont. cardiezam (4) Diabetes Qualifiers: Diabetes mellitus type: type 2 Diabetes mellitus long term care social worker insulin use: with long term care social worker use Diabetes mellitus complication status: without complication Qualified Code(s): E11.9 - Type 2 diabetes mellitus without complications; Z79.4 - penitentiary (current) use of insulin Is this a current diagnosis for this admission?: Yes Plan: increase levemir 40 bid (5) Hypokalemia Is this a current diagnosis for this admission?: Yes Plan: Plan we will continue oral potassium supplementation and give her potassium riders 60 M EQ's today and check a BMP 7 in the morning - Time Time Spent with patient: 15-24 minutes Medications reviewed and adjusted accordingly: Yes Anticipated discharge: Other Within: Other - Inpatient Certification Medical Necessity: Failure to Improve With Outpatient Therapy, Significant Comorbidiites Make Outpatient Treatment Too Risky, Need For IV Fluids, Need for Nebulizer Therapy and Monitoring of Response Post Hospital Care: D/C Senior Security Architect Documentation
[2018-05-05] MEDS: MIDAZOLAM 2 MG/2 ML INJ IV SCH ×6 (12:20→22:16)
--- NOTE | 2018-05-05 22:18 | Progress Note ---
Provider Note Provider Note: Note patient made comfort measures, due to her ongoing clinical deterioration in spite of aggressive treatment. Hence will sign off. Patient not seen on rounds today.
[2018-05-06] MEDS: MIDAZOLAM 2 MG/2 ML INJ IV SCH ×4 (00:11→06:33)
[2018-05-06] MEDS: MORPHINE SULFATE 10 MG/ML INJ IV SCH ×11 (00:11→15:07)
[2018-05-06] MEDS: IPRATROPIUM/ALBUTEROL 0.5-2.5 MG/3 ML AMPUL NEB SCH ×4 (04:06→18:07)
[2018-05-06] MEDS ORDERED: LORAZEPAM INJ 2 MG/1 ML VIAL ONE (08:05)
[2018-05-06] MEDS ORDERED: LORAZEPAM INJ 2 MG/1 ML VIAL IV SCH (09:00)
[2018-05-06] MEDS: BUDESONIDE NEB 0.5 MG/2 ML AMPUL NEB SCH (09:02)
[2018-05-06] MEDS: LORAZEPAM INJ 2 MG/1 ML VIAL IV SCH ×6 (10:18→18:02)
[2018-05-06] MEDS ORDERED: MORPHINE SULFATE 10 MG/ML INJ IV PRN (15:52)
--- NOTE | 2018-05-06 21:29 | PDOC PROGRESS REPORT ---
Subjective Progress Note for:: 05/06/18 Subjective:: The patient is comfort care only. She appears to be starting to exhibit tachypnea. Nasal cannula is in place. Multiple family members present. Reason For Visit: EXACERBATION COPD CHRONIC ATRIAL FIBRILLATION Physical Exam Vital Signs: Temp Pulse Resp BP Pulse Ox 98.3 F 87 22 H 137/59 H 95 05/05/18 08:05 05/05/18 08:05 05/05/18 08:05 05/05/18 08:05 05/05/18 08:05 Intake & Output 05/05/18 05/06/18 05/07/18 06:59 06:59 06:59 Intake Total 1450 1050 Output Total 1050 Balance 400 1050 Weight 85.4 kg General appearance: PRESENT: mild distress Respiratory exam: PRESENT: decreased breath sounds, tachypnea Cardiovascular exam: PRESENT: RRR, other - Difficult to auscultate heart sounds due to tachypnea GI/Abdominal exam: PRESENT: diminished bowel sounds Neurological exam: PRESENT: other - Medicated and unresponsive. ABSENT: awake Results Laboratory Results: 05/01/18 06:00 05/05/18 06:00 04/25/18 13:36 Troponin I < 0.012 Impressions: Chest X-Ray 05/04/18 00:00 IMPRESSION: Stable chronic emphysematous changes without evidence of acute cardiopulmonary process. Assessment & Plan - Diagnosis (1) Need for comfort care Is this a current diagnosis for this admission?: Yes Plan: The patient has been made comfort care by Dr. Carrera. Dr. Galeano also saw the patient earlier. She is beginning to have tachypnea and I instructed nursing to discontinue the oxygen. I made a larger dose of morphine available for air hunger or any agitation. (2) Acute respiratory failure with hypoxia and hypercapnia Is this a current diagnosis for this admission?: Yes Plan: Comfort care only at this time as the patient was unable to recover from this episode of failure. (3) Acute chronic obstructive pulmonary disease with respiratory failure Is this a current diagnosis for this admission?: Yes Plan: Unable to resolve this episode of failure. (4) Acute bronchitis Qualifiers: Bronchitis organism: unspecified organism Qualified Code(s): J20.9 - Acute bronchitis, unspecified Is this a current diagnosis for this admission?: Yes Plan: No further intervention (5) Atrial flutter Qualifiers: Atrial flutter type: typical Qualified Code(s): I48.3 - Typical atrial flutter Is this a current diagnosis for this admission?: Yes Plan: No further intervention (6) Diabetes Qualifiers: Diabetes mellitus type: type 2 Diabetes mellitus fci insulin use: with fci use Diabetes mellitus complication status: without complication Qualified Code(s): E11.9 - Type 2 diabetes mellitus without complications; Z79.4 - performance improvement specialist (current) use of insulin Is this a current diagnosis for this admission?: Yes Plan: No further intervention - Time Time Spent with patient: Less than 15 minutes Medications reviewed and adjusted accordingly: Yes
--- NOTE | 2018-05-06 21:32 | Death Summary ---
Summary Date : 05/06/18 Time of :: 17:20 Autopsy: No Resuscitation Status: Comfort Measures Only Primary Care Provider: Dr. Carrera - Final Diagnosis (1) Need for comfort care Is this a current diagnosis for this admission?: Yes (2) Acute respiratory failure with hypoxia and hypercapnia Is this a current diagnosis for this admission?: Yes (3) Acute chronic obstructive pulmonary disease with respiratory failure Is this a current diagnosis for this admission?: Yes (4) Acute bronchitis Is this a current diagnosis for this admission?: Yes (5) Atrial flutter Is this a current diagnosis for this admission?: Yes (6) Diabetes Is this a current diagnosis for this admission?: Yes Hospital Course:: The patient was admitted on April 25. I did in fact admit the patient and saw her on April [address] Carrera then took over care. Despite aggressive measures the patient continued to decline. As the patient continued to decline and not respond to any intervention Dr. Carrera discussed the situation with the family. They agreed to move forward with comfort only care. Multiple medications were withdrawn and lorazepam and morphine were administered to ensure comfort. Pulmonology was supportive of this care plan as well. I was called by the nurses at approximately 5:30 PM to notify me that the patient had . As per my discussion with Dr. Carrera he will complete the certificate on Wednesday.
== END 2018-05-06 20:16 | disposition expired | DRG 189 ==
LOC: ER 13:09 → EH 15:48 → 4S 17:23 → 3N 04-28 11:00 → 3W 05-04 23:06 → 3N 05-05 00:24
PROVIDERS: ADMIT Hospitalist; ATTEND Internal Medicine
PROC: 5A09557 Assistance with Respiratory Ventilation, Greater than 96 Consecutive Hours, Continuous Positive Airway Pressure (ICD-10-PCS; 2018-04-25)
PROC: 02HV33Z Insertion of Infusion Device into Superior Vena Cava, Percutaneous Approach (ICD-10-PCS; principal; 2018-04-29)
PROC: B548ZZA Ultrasonography of Superior Vena Cava, Guidance (ICD-10-PCS; 2018-04-29)
DX: J96.02 Acute respiratory failure with hypercapnia (principal); J44.1 Chronic obstructive pulmonary disease with (acute) exacerbation; J44.0 Chronic obstructive pulmonary disease with (acute) lower respiratory infection; I48.3 Typical atrial flutter; I48.2 Chronic atrial fibrillation; J96.01 Acute respiratory failure with hypoxia; J20.9 Acute bronchitis, unspecified; Z51.5 Encounter for palliative care; I48.91 Unspecified atrial fibrillation; I50.9 Heart failure, unspecified; M19.90 Unspecified osteoarthritis, unspecified site; L30.9 Dermatitis, unspecified; Z90.49 Acquired absence of other specified parts of digestive tract; Z90.710 Acquired absence of both cervix and uterus; Z87.891 Personal history of nicotine dependence; Z79.82 Long term (current) use of aspirin; Z79.899 Other long term (current) drug therapy; Z79.4 Long term (current) use of insulin
CPT/HCPCS: 36415; 36600; 71045; 71046; 80048; 80053; 80076; 81001; 82140; 82803; 82962; 83605; 83735; 84484; 85025; 87040; 87070; 87077; 87205; 93005; 93010; 94640; 94660; 94668; 96365; 96375; 99285; J0456; J0696; J1642; J1650; J1815; J2060; J2250; J2270; J2920; J2930; J3480; J3490; J7060; J7620